=== PATIENT | male | born 1935 | race Caucasian/White ===

== ENCOUNTER 2019-10-09 07:06 | Outpatient (CLI) | payer MEDICARE, SELFPAY ==
[2019-10-09 07:18] LABS: Add Urine Microscopic? NO; Appearance Urine Clear (Clear); Bilirubin Urine Negative (Negative); Blood Urine Negative (Negative); Color Urine Yellow (Yellow); Glucose Urine UA Negative (Negative); Ketones Urine Negative (Negative); Leukocyte Esterase Ur Negative (Negative); Nitrate Urine Negative (Negative); Protein Urine Negative (Negative); Specific Grav Ur 1.015 (1.010-1.020); Urobilinogen Urine 0.2 mg/dL (0.2-1.0)
[2019-10-09 07:28] LABS: Hemoglobin A1C 5.8 % (<5.7)
[2019-10-09 08:35] LABS: Alanine Aminotransferase 21 U/L (16-63); Albumin Level 3.5 g/dL (3.4-5.0); Alkaline Phosphatase 70 U/L (46-116); Aspartate Amino Transferase 18 U/L (15-37); Bilirubin,Total 0.6 mg/dL (0.00-1.00); Blood Urea Nitrogen 11 mg/dL (7-18); Calcium 8.4 mg/dL (8.5-10.1); Carbon Dioxide 30 mmol/L (21-32); Chloride 96 mmol/L (98-108); Estimated Glomerular Filt Rate > 60; Glucose 94 mg/dL (70-99); HDL Direct 61 mg/dL (40-60); Osmolality Calculated 275 mOsm/kg (285-295); Sodium 133 mmol/L (136-145); Total Protein 6.4 g/dL (6.4-8.2); Triglycerides 34 mg/dL (0-150)
[2019-10-09 08:53] LABS: LDL Cholesterol Calculated 374 mg/dL (<130)
== END 2019-10-09 07:07 | disposition home or self-care (01) ==
LOC: CHSLAB 07:08
PROVIDERS: PCP Internal Medicine; Visit Provider Internal Medicine
DX: E78.2 Mixed hyperlipidemia (principal); I10 Essential (primary) hypertension; R73.01 Impaired fasting glucose
CPT/HCPCS: 36415; 80053; 80061; 81003; 83036

== ENCOUNTER 2020-04-15 06:58 | Outpatient (CLI) | payer MEDICARE, SELFPAY ==
[2020-04-15 07:26] LABS: Hemoglobin A1C 5.8 % (<5.7)
[2020-04-15 07:36] LABS: Add Urine Microscopic? NO; Appearance Urine Clear (Clear); Bilirubin Urine Negative (Negative); Blood Urine Negative (Negative); Color Urine Yellow (Yellow); Glucose Urine UA Negative (Negative); Ketones Urine Negative (Negative); Leukocyte Esterase Ur Negative (Negative); Nitrate Urine Negative (Negative); Protein Urine Negative (Negative); Urobilinogen Urine 0.2 mg/dL (0.2-1.0); pH Urine 7.5 (5.0-8.0)
[2020-04-15 09:33] LABS: Alanine Aminotransferase 17 U/L (16-63); Albumin Level 3.7 g/dL (3.4-5.0); Alkaline Phosphatase 84 U/L (46-116); Anion Gap 7 mmol/L (8-16); Aspartate Amino Transferase 13 U/L (15-37); Bilirubin,Total 0.6 mg/dL (0.00-1.00); Blood Urea Nitrogen 13 mg/dL (7-18); Calcium 8.9 mg/dL (8.5-10.1); Carbon Dioxide 29 mmol/L (21-32); Chloride 95 mmol/L (98-108); Estimated Glomerular Filt Rate > 60; Glucose 86 mg/dL (70-99); Osmolality Calculated 271 mOsm/kg (285-295); Potassium 4.4 mmol/L (3.5-5.1); Sodium 131 mmol/L (136-145)
== END 2020-04-15 06:59 ==
LOC: CHSLAB 07:00
PROVIDERS: PCP Internal Medicine; Visit Provider Internal Medicine
DX: R73.01 Impaired fasting glucose (principal); I10 Essential (primary) hypertension
CPT/HCPCS: 36415; 80053; 81003; 83036

== ENCOUNTER 2020-05-13 12:25 | Outpatient (CLI) | payer MEDICARE, OTHER, SELFPAY ==
--- NOTE | ~2020-05-13 | CT_ITS ---
EXAMINATION: CT sinus wo con DATE: 05/13/2020 12:47 INDICATION: Chronic maxillary sinusitis. TECHNIQUE: Computed tomography (CT) of the paranasal sinuses was performed without intravenous contra st. The dose-length product was 285.18 mGy-cm. Automated exposure control and iterative reconstructio n technique were employed. COMPARISON: None FINDINGS: Small right mastoid effusion. Left mastoid air cells are pneumatized. There is mild mucosal thickening of the maxillary sinuses. Ostiomeatal units are patent. No significant nasal septal devia tion. No air-fluid levels. No significant mucoperiosteal reaction. IMPRESSION: 1. Mild maxillary sinus disease. 2: Small right mastoid effusion. Reviewed, dictated and finalized at location A. CHECKER
== END 2020-05-13 12:26 | disposition home or self-care (01) ==
PROVIDERS: PCP Internal Medicine
DX: J32.0 Chronic maxillary sinusitis (principal)
CPT/HCPCS: 70486

== ENCOUNTER 2020-05-22 07:06 | Outpatient (CLI) | payer MEDICARE, SELFPAY ==
[2020-05-22 08:15] LABS: Alanine Aminotransferase 9 U/L (16-63); Albumin Level 3.6 g/dL (3.4-5.0); Alkaline Phosphatase 87 U/L (46-116); Anion Gap 5 mmol/L (8-16); Aspartate Amino Transferase 14 U/L (15-37); Bilirubin,Total 0.6 mg/dL (0.00-1.00); Blood Urea Nitrogen 12 mg/dL (7-18); Calcium 8.5 mg/dL (8.5-10.1); Carbon Dioxide 29 mmol/L (21-32); Chloride 96 mmol/L (98-108); Cholesterol 137 mg/dL (0-200); Creatine Kinase 71 U/L (39-308); Estimated Glomerular Filt Rate > 60; Glucose 96 mg/dL (70-99); HDL Direct 48 mg/dL (40-60); LDL Cholesterol Calculated 80 mg/dL (<130); Osmolality Calculated 269 mOsm/kg (285-295); Potassium 4.4 mmol/L (3.5-5.1); Sodium 130 mmol/L (136-145); Total Protein 6.8 g/dL (6.4-8.2); Triglycerides 47 mg/dL (0-150)
== END 2020-05-22 07:07 | disposition home or self-care (01) ==
LOC: CHSLAB 07:07
PROVIDERS: PCP Internal Medicine; Visit Provider Internal Medicine
DX: E78.2 Mixed hyperlipidemia (principal); E87.1 Hypo-osmolality and hyponatremia
CPT/HCPCS: 36415; 80053; 80061; 82550

== ENCOUNTER 2020-07-08 06:59 | Outpatient (CLI) | payer MEDICARE, SELFPAY ==
[2020-07-08 07:57] LABS: Anion Gap 4 mmol/L (8-16); Blood Urea Nitrogen 17 mg/dL (7-18); Calcium 8.7 mg/dL (8.5-10.1); Carbon Dioxide 31 mmol/L (21-32); Chloride 95 mmol/L (98-108); Estimated Glomerular Filt Rate > 60; Glucose 100 mg/dL (70-99); Osmolality Calculated 271 mOsm/kg (285-295); Potassium 4.3 mmol/L (3.5-5.1); Sodium 130 mmol/L (136-145)
== END 2020-07-08 07:00 | disposition home or self-care (01) ==
LOC: CHSLAB 07:00
PROVIDERS: PCP Internal Medicine; Visit Provider Internal Medicine
DX: E87.1 Hypo-osmolality and hyponatremia (principal)
CPT/HCPCS: 36415; 80048

== ENCOUNTER 2020-08-20 07:01 | Outpatient (CLI) | payer MEDICARE, SELFPAY ==
[2020-08-20 07:59] LABS: Anion Gap 6 mmol/L (8-16); Blood Urea Nitrogen 15 mg/dL (7-18); Calcium 8.8 mg/dL (8.5-10.1); Carbon Dioxide 30 mmol/L (21-32); Chloride 94 mmol/L (98-108); Estimated Glomerular Filt Rate > 60; Glucose 98 mg/dL (70-99); Osmolality Calculated 270 mOsm/kg (285-295); Potassium 4.7 mmol/L (3.5-5.1); Sodium 130 mmol/L (136-145)
== END 2020-08-20 07:02 | disposition home or self-care (01) ==
LOC: CHSLAB 07:02
PROVIDERS: PCP Internal Medicine; Visit Provider Internal Medicine
DX: E87.1 Hypo-osmolality and hyponatremia (principal)
CPT/HCPCS: 36415; 80048

== ENCOUNTER 2020-09-04 07:03 | Outpatient (CLI) | payer MEDICARE, SELFPAY ==
[2020-09-09 06:05] LABS: Adrenocorticotropic Hormone 24 pg/mL (6-50)
== END 2020-09-04 07:04 | disposition home or self-care (01) ==
LOC: CHSLAB 07:04
PROVIDERS: PCP Internal Medicine; Visit Provider Internal Medicine
DX: E87.1 Hypo-osmolality and hyponatremia (principal)
CPT/HCPCS: 36415; 82024; 82533

== ENCOUNTER 2020-10-08 08:44 | Outpatient (CLI) | payer MEDICARE, SELFPAY ==
[2020-10-08 09:10] LABS: Creatinine Urine 67.78 mg/dL (40-278); Sodium Urine Random 81 mmol/L (20-110)
[2020-10-08 10:07] LABS: Albumin Level 3.4 g/dL (3.4-5.0); Anion Gap 9 mmol/L (8-16); Blood Urea Nitrogen 16 mg/dL (7-18); Calcium 8.7 mg/dL (8.5-10.1); Carbon Dioxide 27 mmol/L (21-32); Chloride 94 mmol/L (98-108); Estimated Glomerular Filt Rate > 60; Glucose 113 mg/dL (70-99); Osmolality Calculated 272 mOsm/kg (285-295); Potassium 4.3 mmol/L (3.5-5.1); Sodium 130 mmol/L (136-145)
[2020-10-11 05:09] LABS: Albumin 3.6 g/dL (3.8-4.8); Alpha 1 Globulin 0.3 g/dL (0.2-0.3); Alpha 2 Globulin 0.6 g/dL (0.5-0.9); Beta 1 Globulin 0.4 g/dL (0.4-0.6); Protein, Total 6.2 g/dL (6.1-8.1)
[2020-10-11 05:34] LABS: Osmolality, Urine 530 mOsm/kg (50-1200)
== END 2020-10-08 08:45 | disposition home or self-care (01) ==
LOC: CHSLAB 08:45
PROVIDERS: PCP Internal Medicine; Visit Provider Internal Medicine Nephrology
DX: E85.1 Neuropathic heredofamilial amyloidosis (principal)
CPT/HCPCS: 36415; 80069; 82570; 83930; 83935; 84155; 84165; 84300

== ENCOUNTER 2020-12-08 09:23 | Outpatient (CLI) | payer MEDICARE, SELFPAY ==
[2020-12-08 09:47] LABS: Albumin Level 3.6 g/dL (3.4-5.0); Anion Gap 8 mmol/L (8-16); Blood Urea Nitrogen 17 mg/dL (7-18); Calcium 8.7 mg/dL (8.5-10.1); Carbon Dioxide 28 mmol/L (21-32); Chloride 97 mmol/L (98-108); Estimated Glomerular Filt Rate > 60; Glucose 95 mg/dL (70-99); Osmolality Calculated 277 mOsm/kg (285-295); Phosphorus 3.4 mg/dL (2.6-4.7); Potassium 4.4 mmol/L (3.5-5.1); Sodium 133 mmol/L (136-145)
== END 2020-12-08 09:24 | disposition home or self-care (01) ==
LOC: CHSLAB 09:24
PROVIDERS: PCP Internal Medicine; Visit Provider Internal Medicine Nephrology
DX: E85.1 Neuropathic heredofamilial amyloidosis (principal)
CPT/HCPCS: 36415; 80069

== ENCOUNTER 2021-01-04 07:15 | Outpatient (CLI) | payer MEDICARE, SELFPAY ==
[2021-01-04 07:30] LABS: Basophils Absolute Auto 0.05 K/mm3 (0.00-0.10); Basophils Percent Auto 0.7 % (0.0-1.0); Eosinophils Absolute Auto 0.23 K/mm3 (0.02-0.50); Eosinophils Percent Auto 3.4 % (1.0-6.0); Hematocrit 44.1 % (37.0-46.0); Hemoglobin 15.3 g/dL (12.4-15.3); Immature Granulocyte Absolute 0.02 K/mm3 (0.00-0.00); Immature Granulocyte Percent A 0.3 % (0.0-0.0); Lymphocytes Absolute Auto 1.34 K/mm3 (1.10-4.50); Lymphocytes Percent Auto 19.9 % (18.0-42.0); Mean Corpuscular HGB Conc 34.7 g/dL (32.0-36.0); Mean Corpuscular Hemoglobin 31.8 pg (27.0-31.0); Mean Corpuscular Volume 91.7 fL (78.0-102.0); Mean Platelet Volume 8.5 fl (8.7-11.0); Monocytes Absolute Auto 0.75 K/mm3 (0.10-0.90); Monocytes Percent Auto 11.1 % (2.0-11.0); Neutrophils Absolute Auto 4.4 K/mm3 (1.7-7.2); Neutrophils Percent Auto 64.6 % (50.0-70.0); Platelet Count Result 168 K/mm3 (150-420); Red Blood Count 4.81 M/mm3 (4.70-6.10); Red Cell Distribution Width 12.6 % (11.6-14.4); White Blood Count 6.8 K/mm3 (4.8-10.8)
[2021-01-04 07:31] LABS: Add Urine Microscopic? NO; Appearance Urine Clear (Clear); Bilirubin Urine Negative (Negative); Blood Urine Negative (Negative); Color Urine Light Yellow (Yellow); Glucose Urine UA Negative (Negative); Ketones Urine Negative (Negative); Leukocyte Esterase Ur Negative LEU/UL (Negative); Nitrate Urine Negative (Negative); Protein Urine Negative (Negative); Urobilinogen Urine 0.2 mg/dL (0.2-1.0); pH Urine 7.5 (5.0-8.0)
[2021-01-04 07:50] LABS: Hemoglobin A1C 5.4 % (<5.7)
[2021-01-04 07:56] LABS: MALB Creatinine Ratio 21.7 mg/g (0-30); Microalbumin Urine Random < 13.0 mg/L
[2021-01-04 08:20] LABS: Alanine Aminotransferase 25 U/L (16-63); Albumin Level 3.7 g/dL (3.4-5.0); Alkaline Phosphatase 89 U/L (46-116); Anion Gap 6 mmol/L (8-16); Aspartate Amino Transferase 14 U/L (15-37); Bilirubin,Total 0.5 mg/dL (0.00-1.00); Blood Urea Nitrogen 13 mg/dL (7-18); Calcium 8.9 mg/dL (8.5-10.1); Carbon Dioxide 30 mmol/L (21-32); Chloride 97 mmol/L (98-108); Cholesterol 141 mg/dL (0-200); Creatine Kinase 49 U/L (39-308); Estimated Glomerular Filt Rate > 60; Glucose 99 mg/dL (70-99); HDL Direct 52 mg/dL (40-60); LDL Cholesterol Calculated 79 mg/dL (<130); Osmolality Calculated 276 mOsm/kg (285-295); Potassium 4.3 mmol/L (3.5-5.1); Sodium 133 mmol/L (136-145); Total Protein 6.9 g/dL (6.4-8.2); Triglycerides 48 mg/dL (0-150)
== END 2021-01-04 07:16 | disposition home or self-care (01) ==
LOC: CHSLAB 07:16
PROVIDERS: PCP Internal Medicine; Visit Provider Internal Medicine
DX: R73.01 Impaired fasting glucose (principal); I10 Essential (primary) hypertension
CPT/HCPCS: 36415; 80053; 80061; 81003; 82043; 82550; 83036; 85025

== ENCOUNTER 2021-02-04 10:00 | Outpatient (CLI) | payer MEDICARE, SELFPAY ==
[2021-02-04 10:59] LABS: Albumin Level 3.6 g/dL (3.4-5.0); Anion Gap 8 mmol/L (8-16); Blood Urea Nitrogen 14 mg/dL (7-18); Calcium 8.8 mg/dL (8.5-10.1); Carbon Dioxide 29 mmol/L (21-32); Chloride 96 mmol/L (98-108); Estimated Glomerular Filt Rate > 60; Glucose 98 mg/dL (70-99); Osmolality Calculated 276 mOsm/kg (285-295); Phosphorus 3.2 mg/dL (2.6-4.7); Potassium 4.6 mmol/L (3.5-5.1); Sodium 133 mmol/L (136-145)
== END 2021-02-04 10:01 | disposition home or self-care (01) ==
LOC: CHSLAB 10:03
PROVIDERS: PCP Internal Medicine; Visit Provider Internal Medicine Nephrology
DX: E87.1 Hypo-osmolality and hyponatremia (principal)
CPT/HCPCS: 36415; 80069

== ENCOUNTER 2021-02-09 12:15 | Outpatient (CLI) | payer MEDICARE, OTHER, SELFPAY ==
--- NOTE | ~2021-02-09 | XR_ITS ---
XR chest 2V DATE: 02/09/2021 12:58 INDICATION: Hyponatremia, hypoosmolality. Hypertension. TECHNIQUE: 2 views COMPARISON: 04/17/2017 two-view chest FINDINGS: Normal heart size. Bilateral hyperinflation, suggesting obstructive airways disease. There are chronic reticulonodular c hanges in both lung bases. No interval pulmonary consolidation. No pleural effusion or pulmonary vascular congestion or pneumoth orax. Normal heart size. No hilar or mediastinal enlargement. Diffuse osteopenia. Diffuse idiopathic skeletal hyperostosis of the thoracic spine. IMPRESSION: Chronic reticulonodular changes at both lung bases, dating back to 04/17/2017 Bilateral hyperinflation, suggesting obstructive airways disease Reviewed, dictated and finalized at location A.
--- NOTE | ~2021-02-09 | CT_ITS ---
EXAMINATION: CT brain wo con DATE: 02/09/2021 12:58 INDICATION: Hyponatremia. Hypoxia small left knee. Hypertension. History of prostate cancer. TECHNIQUE: Computed tomography (CT) of the head was performed without intravenous contrast. The mA wa s adjusted according to patient size. Iterative reconstruction technique was employed. Exam dose: 60 5.33 mGy-cm total exam DLP. COMPARISON: None FINDINGS: Cerebral atherosclerosis is noted. There is nonspecific diminished attenuation of the cereb ral white matter, likely due to chronic small vessel ischemic changes. Mild bilateral basal ganglia calcification. No intracranial mass lesion or hemorrhage or cerebrovascular accident is evident. No midline shift or mass effect. No subdural or epidural hematoma. The orbital contents are unremarkable. Minimal opacification of right mastoid air cells. The mastoid air cells and included paranasal sinuse s are otherwise unremarkable. No fracture or bone destruction of the cranial vault. IMPRESSION: Cerebral atherosclerosis and chronic small vessel ischemic changes of cerebral white mat ter No acute intracranial finding Reviewed, dictated and finalized at Location A. Reviewed, dictated and finalized at location A. IMPRESSION: Cerebral atherosclerosis and chronic small vessel ischemic changes of cerebral white matter No acute intracranial finding
== END 2021-02-09 12:16 | disposition home or self-care (01) ==
LOC: CHSIMG 12:18
PROVIDERS: PCP Internal Medicine; Visit Provider Internal Medicine Nephrology
DX: E87.1 Hypo-osmolality and hyponatremia (principal)
CPT/HCPCS: 70450; 71046

== ENCOUNTER 2021-04-16 19:05 | Emergency (ER) | payer MEDICARE, OTHER, SELFPAY ==
--- NOTE | ~2021-04-16 | CT_ITS ---
EXAMINATION: CT brain wo con EXAM DATE: 04/16/2021 20:01 INDICATION: Left leg numbness LT leg numbness pins and needles w/ dizziness today . TECHNIQUE: Spiral CT of the head was performed without contrast. Axial, coronal and sagittal images were reviewed. The dose-length product (DLP) for this examination was 681.00 mGy-cm. The exposure w as tailored according to patient size, and iterative reconstruction (ASIR) was used as additional dos e reduction technique. Comparison is made to prior examination from 02/09/2021. FINDINGS: There is no acute intraparenchymal hemorrhage. No evidence of intraparenchymal brain mass lesion. No evidence of acute infarction. Please note that initial head CT has limited sensitivity f or small or acute infarctions. There is mild periventricular and subcortical hypodensity, nonspecific but probably related to small vessel ischemic disease. There is mild prominence of the sulci and v entricles related to cerebral atrophy. There is intracranial carotid arteriosclerosis. There are n o extra-axial collections. There is no mass effect or midline shift. Patient has had right-sided oc ular lens surgery. Soft tissue is unremarkable. The visualized sinuses and mastoid air cells are we ll aerated. IMPRESSION: 1. No acute intracranial findings. 2. Chronic age related findings. Reviewed, dictated and finalized at location A. ITAL LIBRARIAN
[2021-04-16 19:10] VITALS: BP 166/94; PULSE 93; RESP 18; TEMP 36.6; O2SAT 99
--- NOTE | 2021-04-16 19:13 | ED.NEUROSD ---
HPI - Neuro Symptoms/Deficit General Chief Complaint: Extremity Problem,Nontraumatic Stated Complaint: numb L leg Source: patient and RN notes reviewed Mode of arrival: wheelchair Limitations: no limitations History of Present Illness HPI Narrative: patient states that he when out to get a pizza brought her home sat down and ate supper. He got up after eating and could not stand on his left leg. He said it felt numb. No other neurological symptoms. Onset (ago): hour(s) (1) Timing confirmed by: family member Location: left leg History of same: No Severity: moderate Quality: numb Relieving factors: time Exacerbating factors: none Context: sudden onset On Anticoagulants: No Associated symptoms: denies other symptoms Treatments Prior to Arrival: none Related Data Home Medications Medication Instructions Recorded Confirmed losartan 50 mg PO DAILY 04/16/21 04/16/21 omeprazole 20 mg PO DAILY 04/16/21 04/16/21 Allergies Allergy/AdvReac Type Severity Reaction Status Date / Time adhesive Allergy Unknown Rash Verified 04/16/21 19:25 BEE STINGS Allergy Severe SWELLING, Uncoded 05/31/16 14:47 SOB Review of Systems Review of Systems: All systems reviewed & are unremarkable except as noted in HPI and below Constitutional: Constitutional: Denies chills and Denies fever(s) Neurologic: Reports system reviewed and no additional complaints, except as documented PMFSH Past Medical History Medical History (Updated 04/16/21 @ 21:02 by Tre Bruner MD) GERD (gastroesophageal reflux disease) Hypertension Sessile colonic polyp Surgical History Surgical History (Updated 04/16/21 @ 19:40 by Tre Bruner MD) History of hip surgery Right History of knee replacement left Previous back surgery Times 2 Social History Social History Smoking status: Never smoker Alcohol intake: never Exam Const: General: healthy appearing, no acute distress and alert Nutritional Appearance: well nourished Orientation/consciousness: patient oriented x3 HENMT: Head: normal to inspection Ears: external ears normal Face and sinus: normal facial exam Mouth: Yes moist mucous membranes Eyes: Conjunctivae: conjunctivae normal Pupils: Equal, round and reactive pupils present EOM: EOMs intact bilaterally Neck: Neck: normal visual inspection and no lymphadenopathy Carotids: no bruits Resp: Effort & Inspection: normal respiratory effort Auscultation: clear to auscultation bilaterally Cardio: Rate: regular rate Rhythm: regular rhythm GI: GI Palp: Yes Soft to palpation, No Tenderness to palpation present (GI), No Guarding due to palpation present (GI) and No Rebound tenderness present Auscultation: normal bowel sounds Back/Spine/Pelvis: Cervical Spine: cervical ROM normal Thoracic/Lumbar Spine: thoraco-lumbar ROM normal Skin: General skin exam: normal color Rashes: no rashes Neuro: General: patient oriented x3 and moves all extremities Cranial nerves: Yes CN's II-XII intact bilaterally, Yes Equal, round and reactive pupils present, Yes Bilaterally intact EOM present, Yes Normal facial strength present, Yes facial symmetry, Yes Midline tongue present, Yes Normal hearing present, Yes Ability to bilaterally rotate head present and Yes Ability to bilaterally elevate shoulders present Cognition (Neuro): normal cognition Speech: normal speech Motor exam (neuro): 5/5 motor strength present throughout, Pronator motor function not present, No tremor noted, Normal motor muscle tone present throughout and Motor abnormalities not present Sensory Exam: normal sensation Deep tendon reflexes (DTR's): Right patellar reflex intensity grade: 2+, Left patellar reflex intensity grade: 2+, Right ankle reflex intensity grade: 2+ and Left ankle reflex intensity grade: 2+ Coordination: [id number] test normal, [id number] test normal and Romberg test negative Pupils: Normal pupillary re
--- NOTE | 2021-04-16 19:38 | ECG_ITS ---
Measurements Intervals [place] Rate: 75 P: 22 NE: 252 QRS: -6 QRSD: 107 T: 9 QT: 386 QTc: 432 Interpretive Statements SINUS RHYTHM WITH FIRST DEGREE AV BLOCK INCOMPLETE RIGHT BUNDLE BRANCH BLOCK LOW QRS VOLTAGE IN PRECORDIAL LEADS ABNORMAL ECG Electronically Signed On 04-17-2021 8:01:46 EXECUTIVE MANAGER by Jett Kent D.O.
[2021-04-16 20:14] LABS: Basophils Absolute Auto 0.05 K/mm3 (0.00-0.10); Basophils Percent Auto 0.8 % (0.0-1.0); Eosinophils Absolute Auto 0.26 K/mm3 (0.02-0.50); Eosinophils Percent Auto 4.2 % (1.0-6.0); Hematocrit 41.2 % (37.0-46.0); Hemoglobin 14.5 g/dL (12.4-15.3); Immature Granulocyte Absolute 0.01 K/mm3 (0.00-0.00); Immature Granulocyte Percent A 0.2 % (0.0-0.0); Lymphocytes Percent Auto 25.9 % (18.0-42.0); Mean Corpuscular HGB Conc 35.2 g/dL (32.0-36.0); Mean Corpuscular Hemoglobin 32.5 pg (27.0-31.0); Mean Corpuscular Volume 92.4 fL (78.0-102.0); Mean Platelet Volume 8.6 fl (8.7-11.0); Monocytes Absolute Auto 0.74 K/mm3 (0.10-0.90); Neutrophils Absolute Auto 3.5 K/mm3 (1.7-7.2); Neutrophils Percent Auto 56.9 % (50.0-70.0); Platelet Count Result 158 K/mm3 (150-420); Red Blood Count 4.46 M/mm3 (4.70-6.10); Red Cell Distribution Width 12.4 % (11.6-14.4); White Blood Count 6.2 K/mm3 (4.8-10.8)
[2021-04-16 20:24] LABS: Prothrombin Time 11.1 Seconds (9.50-12.10)
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
[2021-04-16 20:37] LABS: Alanine Aminotransferase 20 U/L (16-63); Albumin Level 3.3 g/dL (3.4-5.0); Alkaline Phosphatase 91 U/L (46-116); Anion Gap 5 mmol/L (8-16); Aspartate Amino Transferase 19 U/L (15-37); Bilirubin,Total 0.4 mg/dL (0.00-1.00); Blood Urea Nitrogen 14 mg/dL (7-18); Carbon Dioxide 30 mmol/L (21-32); Chloride 96 mmol/L (98-108); Estimated CRCL calculation 68 ml/min; Estimated Glomerular Filt Rate > 60; Glucose 99 mg/dL (70-99); Osmolality Calculated 272 mOsm/kg (285-295); Potassium 3.8 mmol/L (3.5-5.1); Sodium 131 mmol/L (136-145); Total Protein 6.7 g/dL (6.4-8.2)
[2021-04-16 20:38] LABS: Magnesium 1.8 mg/dL (1.8-2.4); Thyroid Stimulating Hormone 1.58 uIU/mL (0.36-3.74)
[2021-04-16 21:01] VITALS: BP 149/86; PULSE 80; RESP 16; O2SAT 97
[2021-04-16 21:15] VITALS: TEMP 36.6
== END 2021-04-16 21:20 | disposition home or self-care (01) ==
PROVIDERS: Emergency Provider Emergency Medicine; PCP Internal Medicine
DX: R20.2 Paresthesia of skin (principal); K21.9 Gastro-esophageal reflux disease without esophagitis; I10 Essential (primary) hypertension; Z96.652 Presence of left artificial knee joint
CPT/HCPCS: 36415; 70450; 80053; 83735; 84443; 85025; 85610; 93005; 99283; 99284

== ENCOUNTER 2021-04-20 06:54 | Outpatient (CLI) | payer MEDICARE, OTHER, SELFPAY ==
--- NOTE | ~2021-04-20 | MR_ITS ---
EXAMINATION: MR brain/brain stem wo con DATE: 04/20/2021 08:08 INDICATION: Left leg weakness. Cerebral vascular accident. TECHNIQUE: Magnetic resonance imaging (MRI) of the brain and brainstem was performed without intraven ous contrast. Sequences included sagittal and axial T1-weighted FSE, axial diffusion-weighted FS EPI, axial T2*-weighted GRE, axial T2-weighted FLAIR Propeller, and axial T2-weighted Propeller. Apparent diffusion coefficient (ADC) maps were created. COMPARISON: Head CT 04/16/2021 FINDINGS: There are acute infarcts in the deep white matter in right frontoparietal region. There are scattered areas of nonspecific increased T2-weighted signal intensity in the cerebral white matter. There is no intracranial hemorrhage or abnormal mass lesion. The ventricles are normal in size. There are likely changes of right ocular lens replacement surgery. There is mild mucosal thickening in the ethmoid sinuses. There is a right mastoid effusion. IMPRESSION: 1. 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 2. Moderate nonspecific cerebral white matter disease, which likely represents chronic small vessel i schemic disease. Reviewed, dictated and finalized at location A. ER DRIVER IMPRESSION: 1. 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 2. Moderate nonspecific cerebral white matter disease, which likely represents chronic small vessel ischemic disease.
--- NOTE | 2021-05-21 12:21 | WPDHOLTEREM ---
Holter/Event Monitor Holter/Event Monitor Date of procedure: 04/20/21 Holter/Event Procedure: Event Monitor Indications: TIA Conclusion: 1. 27 days event monitor between 04/20/21-05/19/21. There are 41 available transmissions for analysis. 2. Predominant rhythm is sinus rhythm. HR range 50-172 bpm; average HR 72 bpm. 3. There are occasional premature supraventricular complexes with total burden of <1%. No supraventricular tachycardia. 4. There are occasional premature ventricular complexes with total burden of <1%. There are 2 episodes of ventricular tachycardia. One was up to 172 bpm on 04/24/21 at 02:51 lasting 56 seconds. The other was up to 172 bpm on 04/27/21 at 17:41 lasting 21 beats. 5. There is first degree AV block. One pause was 2.3 seconds long at 23:41. 6. Patient had one symptom other than listed which demonstrate sinus rhythm at 83 bpm.
== END 2021-04-20 06:55 | disposition home or self-care (01) ==
LOC: CHSIMG 06:55
PROVIDERS: PCP Internal Medicine; Visit Provider Internal Medicine
DX: R53.1 Weakness (principal); I63.9 Cerebral infarction, unspecified; R94.31 Abnormal electrocardiogram [ECG] [EKG]
CPT/HCPCS: 70551; 93270

== ENCOUNTER 2021-04-23 12:19 | Outpatient (CLI) | payer MEDICARE, OTHER, SELFPAY ==
--- NOTE | ~2021-04-23 | US_ITS ---
EXAMINATION: US carotid duplex BI DATE: 04/23/2021 13:21 INDICATION: Left hemiparesis. TECHNIQUE: Grayscale, color Doppler, and pulsed Doppler images of the cervical carotid arteries were obtained. The degree of vessel stenosis is placed in one of the following categories: normal, <50%, 5 0-69%, >=70% but less than near-occlusion, near-occlusion, or total occlusion. Note that percent sten osis relative to normal distal artery lumen diameter is indirectly measured from velocity measurement s as described by Lg, et al. Radiology 2003; 229:340-346. COMPARISON: Ultrasound 04/04/2018 FINDINGS: RIGHT: The right common carotid artery (CCA) peak systolic velocity (PSV) is 65 cm/s. The right internal car otid artery (ICA) PSV is 207 cm/s. The right ICA end-diastolic velocity (EDV) is 46 cm/s. The right I CA/CCA PSV ratio is 3.2. Grayscale and color Doppler images yield an estimate of >=50% diameter reduc tion from plaque in the ICA. There is antegrade flow in the right vertebral artery. LEFT: The left CCA PSV is 63 cm/s. The left ICA PSV is 49 cm/s. The left ICA EDV is 16 cm/s. The left ICA/C CA PSV ratio is 0.8. Grayscale and color Doppler images yield an estimate of <50% diameter reduction from plaque in the ICA. There is antegrade flow in the left vertebral artery. IMPRESSION: 1. 50-69% stenosis in the right internal carotid artery. 2. <50% stenosis in the left internal carotid artery. Reviewed, dictated and finalized at location A. INERY MOVER
--- NOTE | 2021-04-23 12:26 | ECHO_ITS ---
Patient Info Name: Yaw Polanco Age: 85 years : 1935 Gender: Male Ht: 72 in Wt: 230 lbs BSA: 2.33 m2 HR: 87 bpm BP: 117 / 65 mmHg Exam Date: 04/23/2021 1:16 PM Exam Location: [facility] Patient Status: Outpatient Admit Date: 04/23/2021 Staff Ordering Physician: Edith Xie MD Senior Pl Sql Developer: Seda Poe Attending Provider: Edith Xie MD Referring Physician: Rojas DONAHUE; Exam Type: CA echo doppler color flow Study Info Indications Z86.73 - Personal history of transient ischemic attack (TIA), and cerebral infarction without residual deficits Complete two-dimensional, color flow and Doppler transthoracic echocardiogram is performed. Strain analysis performed. Summary 1. Complete two-dimensional, color flow and Doppler transthoracic echocardiogram is performed. 2. Left ventricular chamber dimension is normal. 3. Left ventricular systolic function is normal, estimated at 55-60%. 4. There is moderately increased left ventricular wall thickness. 5. The left ventricular diastolic function is grade I diastolic dysfunction. 6. Global longitudinal strain is normal at -17.0%. 7. There is moderate aortic valve sclerosis. 8. There is mild aortic valve stenosis with a peak velocity of 196 cm/s, mean gradient of 10 mmHg, and aortic valve area of 1.6 cm2. 9. The mitral valve has mildly calcified annulus. 10. No pulmonary hypertension, estimated pulmonary arterial systolic pressure is 20 mmHg. 11. There is trace pulmonic regurgitation. Left Ventricle Global longitudinal strain is normal at -17.0%. Tissue doppler is not performed. Left ventricular chamber dimension is normal. Left ventricular systolic function is normal, estimated at 55-60%. There is moderately increased left ventricular wall thickness. The left ventricular diastolic function is grade I diastolic dysfunction. Right Ventricle Right ventricular systolic function is normal and with normal TAPSE 2.1 cm. Right ventricular chamber dimension is normal. Left Atria Left atrial chamber dimension is normal. Right Atria Right atrial chamber dimension is normal. Aortic Valve The aortic valve is trileaflet. There is moderate aortic valve sclerosis. There is mild aortic valve stenosis with a peak velocity of 196 cm/s, mean gradient of 10 mmHg, and aortic valve area of 1.6 cm2. There is no aortic valve regurgitation. Pulmonic Valve There is trace pulmonic regurgitation. Mitral Valve The mitral valve has mildly calcified annulus. There is no mitral valve stenosis. There is no mitral valve regurgitation. Tricuspid Valve There is no tricuspid valve regurgitation. No pulmonary hypertension, estimated pulmonary arterial systolic pressure is 20 mmHg. Pericardium/Pleural There is no pericardial effusion. Inferior Vena Cava Normal inferior vena cava with >50% collapse upon inspiration consistent with normal right atrial pressure, 5 mmHg. Aorta The aortic root size at the sinus of Valsalva is normal. Left Ventricular Outflow Tract Name Value Normal LVOT 2D LVOT Diameter 2.0 cm LVOT Doppler LVOT Peak Velocity 93
== END 2021-04-23 12:20 | disposition home or self-care (01) ==
LOC: CHSIMG 12:20
PROVIDERS: PCP Internal Medicine; Visit Provider Internal Medicine
DX: R53.1 Weakness (principal); I63.9 Cerebral infarction, unspecified
CPT/HCPCS: 93306; 93880

== ENCOUNTER 2021-06-04 00:49 | Emergency (ER) | payer MEDICARE, OTHER, SELFPAY ==
--- NOTE | ~2021-06-04 | XR_ITS ---
EXAMINATION: XR chest 1V portable EXAM DATE: 06/04/2021 01:32 INDICATION: Dizziness. TECHNIQUE: Portable AP frontal chest x-ray was obtained. Comparison is made to prior examination from 02/09/2021. FINDINGS: Chronic basilar reticulonodular opacities unchanged. No confluent consolidation, pneumothor ax or pleural effusion suspected. Cardiomediastinal silhouette is normal. There are mild bony degene rative changes. IMPRESSION: No acute cardiopulmonary findings. Reviewed, dictated and finalized at location A. ALT PAVER
[2021-06-04 00:52] VITALS: BP 177/94; PULSE 92; RESP 16; TEMP 36.6; O2SAT 99
--- NOTE | 2021-06-04 01:03 | PC.NURSE ---
ORTHOSTATIC VITALS FOLLOWS- LAYING 161/80 80, SITTING 153/81 81, SITTING WITH LEGS HANGING OFF BED 168/99 102, ERP NOTIFIED.
--- NOTE | 2021-06-04 01:08 | ECG_ITS ---
Measurements Intervals [place] Rate: 80 P: 35 NE: 235 QRS: -20 QRSD: 107 T: 22 QT: 370 QTc: 427 Interpretive Statements SINUS RHYTHM WITH FIRST DEGREE AV BLOCK INCOMPLETE RIGHT BUNDLE BRANCH BLOCK DELAYED PRECORDIAL R/S TRANSITION LOW QRS VOLTAGE IN PRECORDIAL LEADS ABNORMAL ECG Electronically Signed On 06-04-2021 6:17:50 TITLE CHECKER by Jett Kent D.O.
[2021-06-04 01:34] LABS: Basophils Absolute Auto 0.05 K/mm3 (0.00-0.10); Basophils Percent Auto 0.6 % (0.0-1.0); Eosinophils Absolute Auto 0.31 K/mm3 (0.02-0.50); Eosinophils Percent Auto 3.8 % (1.0-6.0); Hematocrit 41.4 % (37.0-46.0); Hemoglobin 14.7 g/dL (12.4-15.3); Immature Granulocyte Absolute 0.03 K/mm3 (0.00-0.00); Immature Granulocyte Percent A 0.4 % (0.0-0.0); Lymphocytes Absolute Auto 1.54 K/mm3 (1.10-4.50); Mean Corpuscular HGB Conc 35.5 g/dL (32.0-36.0); Mean Corpuscular Hemoglobin 32.2 pg (27.0-31.0); Mean Corpuscular Volume 90.8 fL (78.0-102.0); Mean Platelet Volume 8.7 fl (8.7-11.0); Monocytes Absolute Auto 0.89 K/mm3 (0.10-0.90); Neutrophils Absolute Auto 5.3 K/mm3 (1.7-7.2); Neutrophils Percent Auto 65.2 % (50.0-70.0); Platelet Count Result 184 K/mm3 (150-420); Red Blood Count 4.56 M/mm3 (4.70-6.10); Red Cell Distribution Width 12.4 % (11.6-14.4); White Blood Count 8.1 K/mm3 (4.8-10.8)
[2021-06-04 01:56] LABS: Alanine Aminotransferase 20 U/L (16-63); Albumin Level 3.3 g/dL (3.4-5.0); Alkaline Phosphatase 93 U/L (46-116); Anion Gap 8 mmol/L (8-16); Aspartate Amino Transferase 16 U/L (15-37); Bilirubin,Total 0.6 mg/dL (0.00-1.00); Blood Urea Nitrogen 14 mg/dL (7-18); Calcium 8.8 mg/dL (8.5-10.1); Carbon Dioxide 27 mmol/L (21-32); Chloride 94 mmol/L (98-108); Estimated CRCL calculation 82 ml/min; Estimated Glomerular Filt Rate > 60; Glucose 107 mg/dL (70-99); NT Pro B Type Natriuretic Pept 95 pg/mL (0-450); Osmolality Calculated 268 mOsm/kg (285-295); Potassium 3.7 mmol/L (3.5-5.1); Sodium 129 mmol/L (136-145); Total Protein 6.9 g/dL (6.4-8.2)
--- NOTE | 2021-06-04 02:29 | ED.DIZZY ---
HPI - Dizziness General Chief Complaint: Dizziness Stated Complaint: Dizziness Time Seen by Provider: 06/04/21 01:32 Source: patient and family Mode of arrival: ambulatory Limitations: no limitations History of Present Illness HPI Narrative: this is an 85-year-old gentleman with history of abnormal rhythm has a history of mild aortic stenosis hypertension, patient presents with dizziness that occurred earlier this morning. Currently the patient is resting comfortably with no chest pain no shortness of breath no fever chills no nausea vomiting no abdominal pain no dysuria no diarrhea or constipation. Patient feels dizzy when he stands, blood pressure mildly elevated 177/94, denies vertigo MD elicited complaint: dizziness Onset (ago): hour(s) Timing: sudden onset Severity: mild Description: sense of movement Context: change in medication History of similar symptoms: Yes Exacerbating factors: nothing Relieving factors: nothing Associated symptoms: denies other symptoms Related Data Home Medications Medication Instructions Recorded Confirmed losartan 50 mg PO DAILY 04/16/21 06/04/21 omeprazole 20 mg PO DAILY 04/16/21 06/04/21 apixaban [Eliquis] 5 mg PO DAILY 06/04/21 06/04/21 atorvastatin 40 mg PO DAILY 06/04/21 06/04/21 metoprolol succinate 50 mg PO DAILY 06/04/21 06/04/21 Allergies Allergy/AdvReac Type Severity Reaction Status Date / Time adhesive Allergy Unknown Rash Verified 06/04/21 00:59 DEMAR Inhibitors Allergy Unknown Verified 06/04/21 00:59 BEE STINGS Allergy Severe SWELLING, Uncoded 06/04/21 00:59 SOB Review of Systems Review of Systems: All systems reviewed & are unremarkable except as noted in HPI and below PMFSH Past Medical History Medical History GERD (gastroesophageal reflux disease) Hypertension Sessile colonic polyp Surgical History Surgical History History of hip surgery Right History of knee replacement left Previous back surgery Times 2 Social History Social History Smoking status: Never smoker Alcohol intake: never Exam Const: General: no acute distress Orientation/consciousness: patient oriented x3 HENMT: Head: normal to inspection Eyes: Conjunctivae: conjunctivae normal Pupils: Equal, round and reactive pupils present Neck: Neck: normal visual inspection, no lymphadenopathy and no meningeal signs Chest: Chest palpation & inspection: normal inspection of the chest Resp: Effort & Inspection: normal respiratory effort Auscultation: clear to auscultation bilaterally Cardio: Rate: regular rate Rhythm: regular rhythm GI: Auscultation: normal bowel sounds : Testes: Testes normal Urinary Catheter: Urinary Catheter: patent and draining Back/Spine/Pelvis: Back: no CVA tenderness Skin: General skin exam: normal color Rashes: no rashes Neuro: General: patient oriented x3, moves all extremities, no meningeal signs and no focal motor deficits Extrem: General: normal to inspection and no pedal edema Psych: Mental Status: mental status grossly normal Affect: normal affect Course Course Emergency Course: blood pressure has improved to 153 over 80s, orthostatics were performed and patient is not orthostatic, blood work was reviewed with patient along with the EKG patient did have a sodium of 129 and 0.5L of fluids was given to patient prior to discharge. Vital Signs Vital signs: Vital Signs Temperature 36.6 C 06/04/21 00:52 Pulse Rate 92 06/04/21 00:52 Respiratory Rate 16 06/04/21 00:52 Blood Pressure 177/94 H 06/04/21 00:52 Pulse Oximetry 99 06/04/21 00:52 Temperature 36.6 C 06/04/21 00:52 Pulse Rate 92 06/04/21 00:52 Respiratory Rate 16 06/04/21 00:52 Blood Pressure 177/94 H 06/04/21 00:52 Pulse Oximetry 99 06/04/21 00:52 [facility] - Dizziness Lab
[2021-06-04] MEDS: SODIUM CHLORIDE 0.9% IV 500 ML 999 ML IV CONT (02:35)
[2021-06-04 03:08] VITALS: BP 128/64; PULSE 73; RESP 16; TEMP 36.6; O2SAT 97
== END 2021-06-04 03:10 | disposition home or self-care (01) ==
PROVIDERS: Emergency Provider Emergency Medicine; PCP Internal Medicine
DX: R42 Dizziness and giddiness (principal); K21.9 Gastro-esophageal reflux disease without esophagitis; I10 Essential (primary) hypertension
CPT/HCPCS: 36415; 71045; 80053; 83880; 84484; 85025; 93005; 99283; 99284; J7040

== ENCOUNTER 2021-06-08 01:17 | Day surgery (SDC) | payer MEDICARE, OTHER, SELFPAY ==
[2021-06-07 16:15] VITALS: BMI 30.4
[2021-06-08] VITALS (10 sets, daily range): BP systolic 122–164; BP diastolic 70–99; PULSE 58–83; RESP 13–18; TEMP 36.3–36.8; O2SAT 98–99; BMI 29.9
[2021-06-08 07:44] LABS: Basophils Absolute Auto 0.1 K/mm3 (0.0-0.1); Basophils Percent Auto 0.6 % (0.2-1.2); Eosinophils Absolute Auto 0.2 K/mm3 (0-0.3); Hemoglobin 15.4 g/dL (14.0-18.0); Immature Granulocyte Absolute 0.03 K/mm3 (0.00-0.031); Immature Granulocyte Percent A 0.4 % (0-0.5); Lymphocytes Absolute Auto 1.02 K/mm3 (0.9-3.2); Lymphocytes Percent Auto 12.2 % (18.3-44.2); Mean Corpuscular Hemoglobin 32.4 pg (26-34); Mean Corpuscular Volume 92.6 fl (80-100); Mean Platelet Volume 8.7 fl (7.4-10.4); Monocytes Absolute Auto 0.8 K/mm3 (0.1-0.6); Monocytes Percent Auto 9.5 % (2.6-8.5); Neutrophils Absolute Auto 6.3 K/mm3 (1.3-6.7); Neutrophils Percent Auto 75.3 % (45.5-73.1); Platelet Count Result 178 k/mm3 (150-375); Red Blood Count 4.75 M/mm3 (4.6-6.20); Red Cell Distribution Width 12.6 % (11.5-14.5); White Blood Count 8.4 K/mm3 (4.5-10.0)
[2021-06-08 07:53] LABS: Anion Gap 7 mmol/L (8-16); Blood Urea Nitrogen 12 mg/dL (9-20); Calcium 9.6 mg/dL (8.4-10.2); Carbon Dioxide 26 mmol/L (22-30); Chloride 95 mmol/L (98-107); Estimated CRCL calculation 75 ml/min; Estimated Glomerular Filt Rate > 60; Glucose 114 mg/dL (65-110); Potassium 3.9 mmol/L (3.4-5.0); Sodium 128 mmol/L (137-145)
--- NOTE | 2021-06-08 08:48 | WPDHPUPDATE1 ---
History and Physical Update Update Date/Time: 06/08/21 08:48 History and Physical has been reviewed, including an updated exam of the patient. Patient with recent stroke, nonsustained V-tach up to 56 seconds, some brief dizzy spells, hypertension. Lexiscan showed areas of ischemia. Normal LV function. Here for cardiac catheterization. Risks, benefits, and alternatives have been discussed and questions answered. Patient agrees to proceed with procedure.
--- NOTE | 2021-06-08 08:49 | WPDMODSED ---
Moderate Sedation Note-Pt Data Patient Data Diagnosis: Ventricular tachycardia, easy fatigability, dizzy spells, abnormal stress test Present Complaint: Patient to had a stroke 04/16/2021. Monitor did not show any AFib but he did have ventricular tachycardia with a 21 beat run and 52nd run. Admits to some brief dizzy spells which may last for split 2nd although these were asymptomatic. Lexiscan stress test showed: EF 56%, large area of moderate ischemia involving the apex, apical lateral, apical anterior, apical septal and mid septal segments, no infarction. Patient admits to some easy fatigability with exertion but leads a very sedentary life. Here for further evaluation. Procedure to be performed/Plan: Conscious sedation Left heart catheterization Possible PCI Allergies Allergy/AdvReac Type Severity Reaction Status Date / Time adhesive Allergy Unknown Rash Verified 06/08/21 08:15 DEMAR Inhibitors Allergy Unknown Verified 06/08/21 08:15 BEE STINGS Allergy Severe SWELLING, Uncoded 06/08/21 08:15 SOB Home Medications Medication Instructions Recorded Confirmed Type omeprazole 20 mg PO DAILY 04/16/21 06/07/21 History apixaban [Eliquis] 5 mg PO DAILY 06/04/21 06/08/21 History atorvastatin 40 mg PO DAILY 06/04/21 06/07/21 History metoprolol succinate 25 mg PO DAILY 06/04/21 06/08/21 History aspirin [Adult Low Dose Aspirin] 81 mg PO DAILY 06/07/21 06/08/21 History guaifenesin [Mucinex] 600 mg PO BID 06/07/21 06/08/21 History Current Medications: Active Medications Sodium Chloride (Normal Saline Iv) 500 mls @ 100 mls/hr IV CONT .Q5H JENNIFER Sedation/Anesthesia: No previous sedation/anesthesia problems (including family history). [facility] Past Medical History Medical History (Updated 06/08/21 @ 08:52 by Zhanna Augustine MD) Aortic stenosis 04/2021 echo: EF 77%, moderate , SRINIVASAN 1.5 cm2, mean grad 17 mmHg GERD (gastroesophageal reflux disease) History of stroke 04/16/2021 right frontal stroke, full recovery. Hypertension Sessile colonic polyp Surgical History Surgical History History of hip surgery Right History of knee replacement left Previous back surgery Times 2 Family History Family History (Updated 06/08/21 @ 08:54 by Zhanna Augustine MD) Mother Heart disease age 86 Cerebrovascular accident Father Malignant neoplasm of prostate Sibling Aortic valve replaced Malignant neoplasm of prostate Social History Social History (Updated 06/08/21 @ 08:54 by Zhanna Augustine MD) Social History: Smoking status: Never smoker Alcohol intake: former Substance use: never Substance use type: does not use Living arrangements: with family Spiritual care concerns: No Mod Sed Physical Exam Physical Exam Pre Procedural Exam: Normal: Appearance, Eyes, Ears, Nose, Neck, Throat, Airway, Lungs, Heart Size (1/6 HANNAH upper sternal border), Heart Rate, Heart Rhythm, Neuro Exam, Abdomen, Liver, Extremities (Intact femoral pulses with no bruits, intact pedal pulses) and Skin Hours since solid foods: 12 Hours since liquid intake: 12 Mallampati Classification: class III Internal Medicine - PN: Obj Da Vital Signs Vital Signs: Vital Signs - 24 hr 06/08/21 07:30 Temperature 98.2 F Pulse Rate 58 L Respiratory Rate 14 Blood Pressure 122/78 Pulse Oximetry 98 Meds/Results Medications: Active Medications Generic Name Dose Route Start Last Admin Trade Name Freq PRN Reason Stop Dose Admin Sodium Chloride 500 mls @ 100 mls/hr 06/08/21 07:35 Normal Saline Iv IV CONT .Q5H JENNIFER Labs CBC & Chem 7: 06/08/21 07:37 06/08/21 07:37 Labs: Laboratory Results - last 24 hr 06/08/21 06/08/21 07:37 07:37 WBC 8.4 RBC 4.75 Hgb 15.4 Hct 44.0 MCV 92.6 MCH 32.4 MCHC 35.0 RDW 12.6 Plt Count 178 MPV 8.7 Immature Gran % (Auto)
--- NOTE | 2021-06-08 09:57 | PM.OP ---
Procedure Note - Brief Procedure Note - Brief Date of procedure: 06/08/21 Pre-op diagnosis: abn stress test Post-op diagnosis: same Procedure performed: conscious sedation Left heart catheterization Description of procedure: uneventful left heart catheterization Anesthesia: local ( with conscious sedation) Surgeon: Zhanna Augustine MD Drains: No Packing: No Complications: No immediate complications Disposition: observation Findings: multivessel CAD Normal left ventricular function Mild aortic stenosis recommendation: Will discuss high cusp surgery with the patient.
--- NOTE | 2021-06-08 14:44 | SUR.PHASEII ---
Discharge instructions read to pt. Pt states understanding. Pt denies any questions. Restarting alfa 06/12/21 reviewed with pt and highlighted on paper.
--- NOTE | 2021-06-08 15:30 | SUR.PHASEII ---
DISCHARGED HOME, OUT VIA WC TO 'S WAITING CAR W/ ALL PERSONAL BELONGINGS AND DISCHARGE PACKET/DISK. NO NEW CHANGES. VOICES NO C/O. NO DISTRESS NOTED.
--- NOTE | 2021-06-08 16:59 | WPDCARDPROC ---
Cardiac Cath Procedure Note Date of procedure:: 06/08/21 Performing physician:: Zhanna Augustine MD Indication:: VEntricular tachycardia, abnormal stress test. Brief clinical history:: Patient to had a stroke 04/16/2021. Monitor did not show any AFib but he did have ventricular tachycardia with a 21 beat run and 52 second run. Pt admits to some brief dizzy spells which may last for split second although these runs of ventricular tachycardia were asymptomatic. Lexiscan stress test showed: EF 56%, large area of moderate ischemia involving the apex, apical lateral, apical anterior, apical septal and mid septal segments, no infarction. Echo showed normal left ventricular function with moderate aortic stenosis. Patient admits to some easy fatigability with exertion but leads a very sedentary life. Here for further evaluation. Procedure Procedure performed:: Procedure: 1. Conscious sedation 2. Left heart catheterization 3. Selective Coronary angiography 4. Left ventriculography Procedure note:: Site: Right femoral artery Catheters: 5 [place] arterial sheath, 5 [place] 4 cm right and left Tammy catheters, 5 [place] pigtail catheter Conscious sedation: The patient has no known prior history of adverse affects of conscious sedation. Oropharynx was clear. The patient is deemed a good candidate for conscious sedation. Conscious sedation began at: 913 a.m. Conscious sedation ended at: 939 a.m. Total conscious sedation time: 26 minutes Medications: Versed 1 mg, fentanyl 50 mcg IV push The patient had continuous hemodynamic monitoring, and was also continuously monitored by: Axel Leung RN The patient tolerated conscious sedation well. Detailed procedure: After informed consent the patient brought to the labor and delivery registered nurse and the right femoral area was prepped and draped in the usual fashion. After conscious sedation and local anesthesia the right femoral artery was punctured and cannulated with the arterial sheath. Selective Coronary angiography was performed with the coronary catheters in multiple projections. The patient had a short left main and we had to repeat some used to obtain good opacification of the circumflex after catheter manipulation. These were withdrawn. The pigtail catheter was advanced into the central circulation and left ventricle requiring a straight wire because of his aortic stenosis for pressure measurements and left ventriculography which was performed in the LOPEZ projection. This was withdrawn. Angiography the right common femoral artery was performed and showed these sheath was in suitable position for the vascular closure device. However, could not advance the Andioseal sheath due to bending, so I elected to withdrawal the sheath and obtained hemostasis was obtained using local pressure. The patient tolerated the procedure well with no complications. Estimated blood loss was negligible. Findings:: Pressures: Left ventricular pressure was 158/12 mmHg and aortic pressure was 140/60 mmHg, corresponding to a transvalvular gradient of 18 mm Hg. Left coronary artery: The proximal vessels as well as a valve were calcified. The left main was short. The proximal Left anterior descending had some mild diffuse narrowing before giving rise to a large diagonal. The mid Left anterior descending had a 90% stenosis 9 prior to a medium-sized diagonal than a long diffuse 95% stenosis. The diagonal had a 90% stenosis at its origin. The circumflex gave rise to a large 1st obtuse marginal which had a highly eccentric 60% stenosis. The mid circumflex had a 50% stenosis. Some [id number] collaterals were seen to the Left anterior descending. The distal Left anterior descending had what is probably a significant muscle bridge rather than a stenotic area. Right coronary artery: Tthe right coronary artery had some mild diffuse disease. The mid to distal posterior descending had a 60-70% stenosis. There was some collateral flow seen t
== END 2021-06-08 15:30 | disposition home or self-care (01) ==
PROVIDERS: PCP Internal Medicine; Visit Provider Internal Medicine Cardiovascular Disease
PROC: 4A023N7 Measurement of Cardiac Sampling and Pressure, Left Heart, Percutaneous Approach (ICD-10-PCS; CPT 93452; principal; 2021-06-08 08:30)
DX: I25.10 Atherosclerotic heart disease of native coronary artery without angina pectoris (principal); I35.0 Nonrheumatic aortic (valve) stenosis; R94.39 Abnormal result of other cardiovascular function study; I47.2 Ventricular tachycardia; I10 Essential (primary) hypertension; K21.9 Gastro-esophageal reflux disease without esophagitis; Z86.73 Personal history of transient ischemic attack (TIA), and cerebral infarction without residual deficits; Z79.01 Long term (current) use of anticoagulants; Z79.82 Long term (current) use of aspirin
CPT/HCPCS: 36415; 80048; 85025; 93458; C1760; C1769; C1887; C1894; G0269; J1644; J2250; J3010; J7040

== ENCOUNTER 2021-07-17 09:46 | Emergency (ER) | payer MEDICARE, OTHER, SELFPAY ==
[2021-07-17 09:50] VITALS: BP 126/80; PULSE 83; RESP 18; TEMP 36.6; O2SAT 94
--- NOTE | 2021-07-17 10:21 | ED.MALEGU ---
HPI - Male Genitourinary General Stated complaint: Catheter leaking Source: patient and family Mode of arrival: ambulatory Limitations: no limitations History of Present Illness HPI Narrative: this is 85-year-old gentleman with a recent surgery for carotid endarterectomy has a Joseph in place and overnight was having suprapubic distension and pressure, did realize that his Joseph catheter tubing was kinked, patient cut the tubing and presented to the ER otherwise there is no hematuria currently there is no suprapubic distention or pain no flank pain no fever chills no nausea vomiting no abdominal pain. Complaint: other ( Joseph catheter kinked) Onset (ago): day(s) Related Data Home Medications Medication Instructions Recorded Confirmed omeprazole 20 mg PO DAILY 04/16/21 06/07/21 Eliquis 5 mg PO DAILY 06/04/21 06/08/21 atorvastatin 40 mg PO DAILY 06/04/21 06/07/21 metoprolol succinate 25 mg PO DAILY 06/04/21 06/08/21 aspirin 81 mg PO DAILY 06/07/21 06/08/21 guaifenesin [Mucinex] 600 mg PO BID 06/07/21 06/08/21 Allergies Allergy/AdvReac Type Severity Reaction Status Date / Time adhesive Allergy Unknown Rash Verified 06/08/21 08:15 DEMAR Inhibitors Allergy Unknown Verified 06/08/21 08:15 BEE STINGS Allergy Severe SWELLING, Uncoded 06/08/21 08:15 SOB Review of Systems Review of Systems: All systems reviewed & are unremarkable except as noted in HPI and below PMFSH Past Medical History Medical History Aortic stenosis 04/2021 echo: EF 77%, moderate , SRINIVASAN 1.5 cm2, mean grad 17 mmHg GERD (gastroesophageal reflux disease) History of stroke 04/16/2021 right frontal stroke, full recovery. Hypertension Sessile colonic polyp Surgical History Surgical History History of hip surgery Right History of knee replacement left Previous back surgery Times 2 Family History Family History Mother Heart disease age 86 Cerebrovascular accident Father Malignant neoplasm of prostate Sibling Aortic valve replaced Malignant neoplasm of prostate Social History Social History Social History: Smoking status: Never smoker Alcohol intake: former Substance use: never Substance use type: does not use Spiritual care concerns: No Exam Const: General: cooperative, comfortable, no acute distress and well developed HENMT: Head: normal to inspection Face and sinus: normal facial exam Eyes: General: appearance normal, both eyes and all related structures Neck: Neck: normal visual inspection, full ROM, no lymphadenopathy and no meningeal signs Resp: Effort & Inspection: normal respiratory effort and able to speak in complete sentences Cardio: Palpation: normal PMI Rate: regular rate Rhythm: regular rhythm Heart sounds: Murmur heart sound present GI: Inspection: normal to inspection Percussion: Yes normal to percussion Auscultation: normal bowel sounds Urinary Catheter: Urinary Catheter: patent and draining Back/Spine/Pelvis: Back: no CVA tenderness Cervical Spine: normal cervical lordosis Skin: General skin exam: normal color and no rashes or lesions noted Neuro: General: oriented to person, oriented to place and oriented to time Extrem: General: normal to inspection, full ROM and capillary refill normal Psych: Appearance: grossly normal and well kempt Course Course Emergency Course: Joseph catheter replaced, UA performed and reviewed with patient and family Critical Care Time Critical Care Time Critical Care Time: No Discharge Plan Discharge Clinical Impression: Acute urinary obstruction UTI (urinary tract infection) Qualifiers: Urinary tract infection type: acute cystitis Hematuria presence: without hematuria Q
[2021-07-17 10:40] LABS: Add Urine Microscopic? YES; Appearance Urine Sl Cloudy (Clear); Bilirubin Urine 1+ (Negative); Blood Urine 3+ (Negative); Color Urine Yellow (Yellow); Glucose Urine UA Negative (Negative); Ketones Urine 1+ (Negative); Leukocyte Esterase Ur 2+ (Negative); Nitrate Urine Negative (Negative); Protein Urine 1+ (Negative); pH Urine 6.5 (5.0-8.0)
[2021-07-17 10:45] LABS: Bacteria Urine Trace /hpf; RBC Urine 21-50 /hpf (0-2); Squamous Epithelial Cell Urine Rare /hpf (Few)
[2021-07-17 11:01] VITALS: BP 126/80; PULSE 83; RESP 20; TEMP 36.6; O2SAT 94
== END 2021-07-17 11:05 | disposition home or self-care (01) ==
PROVIDERS: Emergency Provider Emergency Medicine; PCP Internal Medicine
DX: N13.9 Obstructive and reflux uropathy, unspecified (principal); N30.00 Acute cystitis without hematuria; K21.9 Gastro-esophageal reflux disease without esophagitis; I10 Essential (primary) hypertension
CPT/HCPCS: 81001; 99283

== ENCOUNTER 2021-07-22 17:47 | Emergency (ER) | payer MEDICARE, OTHER, SELFPAY ==
[2021-07-22] VITALS (7 sets, daily range): BP systolic 132–166; BP diastolic 60–81; PULSE 64–77; RESP 16–20; TEMP 36.6–36.7; O2SAT 97–100
--- NOTE | ~2021-07-22 | CT_ITS ---
EXAMINATION: CT abdomen pelvis w con DATE: 07/22/2021 20:09 INDICATION: Gross hematuria. Lower pelvic pain. TECHNIQUE: Computed tomography (CT) of the abdomen and pelvis was performed with 100 CC Omnipaque 350 intravenous contrast. Automated exposure control and iterative reconstruction technique were employe d. Exam dose: 867.86 mGy-cm total exam DLP. COMPARISON: 04/20/2018 CT abdomen pelvis and FINDINGS: There are innumerable peripheral small nodular densities of the lower lobes, chronic, prese nt on 04/20/2018. No consolidation at the lung bases. Normal heart size. No pericardial or pleural ef fusion. Small sliding hiatal hernia. Duodenal diverticulum. No hepatic, pancreatic, splenic, and adrenal or renal space-occupying mass lesion. No bile duct or pa ncreatic duct dilatation. The gallbladder is present. No renal mass lesion. 5.5 mm nonobstructing calculus of the lower pole of the right kidney. There is moderate right pelviectasis and ureterectasis no ureteral calculus is evident. There is diff use thickening of the wall of the urinary bladder. There is a Joseph catheter in the base of the urina ry bladder. Multiple radiopaque seeds are noted at the prostate bed. There is diverticulosis of the colon; no evidence of diverticulitis. No bowel obstruction or free ai r. Normal caliber of the abdominal aorta and iliac arteries with extensive atherosclerotic calcification . No intraperitoneal or retroperitoneal or pelvic mass lesion or adenopathy or ascites. Diffuse idiopathic skeletal hyperostosis of the thoracic spine. Severe degenerative disc disease thro ughout the lumbar and lumbosacral spine. Prominent degenerative change of the apophyseal joints Bilateral hip osteoarthritis. IMPRESSION: Small sliding hiatal hernia Duodenal diverticulum 5.5 mm nonobstructing lower pole renal calculus Moderate right pelviectasis and ureterectasis, without apparent obstructing calculus; further evaluat ion is recommended to exclude bladder mass obstructing the right ureterovesical junction. There is th ickening of the urinary bladder wall. Urologic consultation is recommended. Diverticulosis of the colon; no CT evidence of diverticulitis Reviewed, dictated and finalized at [facility]. Reviewed, dictated and finalized at [facility]. IMPRESSION: Small sliding hiatal hernia Duodenal diverticulum 5.5 mm nonobstructing lower pole renal calculus Moderate right pelviectasis and ureterectasis, without apparent obstructing rajendra culus; further evaluation is recommended to exclude bladder mass obstructing th e right ureterovesical junction. There is thickening of the urinary bladder wal l. Urologic consultation is recommended. Diverticulosis of the colon; no CT evidence of diverticulitis
--- NOTE | 2021-07-22 19:04 | ED.MALEGU ---
HPI - Male Genitourinary General Chief complaint: Urogenital-Male Stated complaint: unable to urinate Source: patient and family Mode of arrival: ambulatory Limitations: no limitations History of Present Illness HPI Narrative: This is an 85-year-old gentleman that presents with some hematuria was seen by Urology earlier today and had a procedure performed and was told that there would be some small amount of blood, but the patient has been passing large amount of blood and along with some blood clots patient has a history of coronary artery disease and had recent carotid endarterectomy is currently on aspirin and Plavix. The patient was seen in the emergency department about a week ago and had a Joseph placed and had a follow-up and Joseph was removed. The patient started having hematuria later this afternoon. The patient denies any abdominal pain there is no flank pain vitals are stable. Related Data Home Medications Medication Instructions Recorded Confirmed omeprazole 20 mg PO DAILY 04/16/21 07/17/21 atorvastatin 40 mg PO DAILY 06/04/21 07/17/21 metoprolol succinate 25 mg PO DAILY 06/04/21 07/17/21 aspirin 81 mg PO DAILY 06/07/21 07/17/21 guaifenesin [Mucinex] 600 mg PO BID 06/07/21 07/17/21 acetaminophen 500 mg PO Q6H PRN 07/17/21 07/17/21 clopidogrel 75 mg PO DAILY 07/17/21 07/17/21 diphenhydramine-acetaminophen 1 tablet PO DIRECTED PRN 07/17/21 07/17/21 [Tylenol PM Extra Strength] docusate sodium [Colace] 200 mg PO DAILY 07/17/21 07/17/21 epinephrine 0.3 mg SUBCUT PRN PRN 07/17/21 07/17/21 multivitamin [Daily Multivitamin] 1 tablet PO DAILY 07/17/21 07/17/21 sodium chloride 1,000 mg PO DAILY 07/17/21 07/17/21 Allergies Allergy/AdvReac Type Severity Reaction Status Date / Time adhesive Allergy Unknown Rash Verified 07/22/21 19:15 DEMAR Inhibitors Allergy Unknown Verified 07/22/21 19:15 BEE STINGS Allergy Severe SWELLING, Uncoded 07/22/21 19:15 SOB Review of Systems Review of Systems: All systems reviewed & are unremarkable except as noted in HPI and below PMFSH Past Medical History Medical History Aortic stenosis 04/2021 echo: EF 77%, moderate , SRINIVASAN 1.5 cm2, mean grad 17 mmHg GERD (gastroesophageal reflux disease) History of stroke 04/16/2021 right frontal stroke, full recovery. Hypertension Sessile colonic polyp Surgical History Surgical History History of hip surgery Right History of knee replacement left Previous back surgery Times 2 Family History Family History Mother Heart disease age 86 Cerebrovascular accident Father Malignant neoplasm of prostate Sibling Aortic valve replaced Malignant neoplasm of prostate Social History Social History Social History: Smoking status: Never smoker Alcohol intake: former Substance use: never Substance use type: does not use Spiritual care concerns: No Exam Const: General: no acute distress and alert HENMT: Head: normal to inspection Eyes: Conjunctivae: conjunctivae normal Pupils: Equal, round and reactive pupils present Neck: Neck: normal visual inspection, no lymphadenopathy and no meningeal signs Chest: Chest palpation & inspection: normal inspection of the chest Resp: Effort & Inspection: normal respiratory effort Auscultation: clear to auscultation bilaterally Cardio: Rate: regular rate Rhythm: regular rhythm GI: GI Palp: Yes Soft to palpation Percussion: Yes normal to percussion : Other: Hematuria Urinary Catheter: Urinary Catheter: urine red and urine with clots Back/Spine/Pelvis: Back: no CVA tenderness Skin: General skin exam: normal color Rashes: no rashes Neuro: General: patient oriented x3, moves all extremities and no m
[2021-07-22 19:17] LABS: Basophils Absolute Auto 0.04 K/mm3 (0.00-0.10); Basophils Percent Auto 0.6 % (0.0-1.0); Hematocrit 32.6 % (37.0-46.0); Hemoglobin 11.6 g/dL (12.4-15.3); Immature Granulocyte Absolute 0.03 K/mm3 (0.00-0.00); Immature Granulocyte Percent A 0.5 % (0.0-0.0); Lymphocytes Absolute Auto 0.79 K/mm3 (1.10-4.50); Mean Corpuscular HGB Conc 35.6 g/dL (32.0-36.0); Mean Corpuscular Volume 92.6 fL (78.0-102.0); Mean Platelet Volume 8.8 fl (8.7-11.0); Monocytes Absolute Auto 0.79 K/mm3 (0.10-0.90); Neutrophils Absolute Auto 4.7 K/mm3 (1.7-7.2); Neutrophils Percent Auto 71.9 % (50.0-70.0); Platelet Count Result 150 K/mm3 (150-420); Red Blood Count 3.52 M/mm3 (4.70-6.10); Red Cell Distribution Width 13.2 % (11.6-14.4); White Blood Count 6.6 K/mm3 (4.8-10.8)
--- NOTE | 2021-07-22 19:22 | PC.NURSE ---
1819 16fr martinez inserted and had to be flushed with 1000ml sterile water to get out blood clots urine pink at this time martinez left in to drain by gravity unine pink at this time doctor notified
[2021-07-22 19:33] LABS: Alanine Aminotransferase 24 U/L (16-63); Albumin Level 2.9 g/dL (3.4-5.0); Alkaline Phosphatase 87 U/L (46-116); Anion Gap 6 mmol/L (8-16); Aspartate Amino Transferase 15 U/L (15-37); Bilirubin,Total 0.4 mg/dL (0.00-1.00); Blood Urea Nitrogen 19 mg/dL (7-18); Calcium 8.3 mg/dL (8.5-10.1); Carbon Dioxide 27 mmol/L (21-32); Chloride 93 mmol/L (98-108); Estimated CRCL calculation 83 ml/min; Estimated Glomerular Filt Rate > 60; Glucose 121 mg/dL (70-99); INR 1.1; Osmolality Calculated 265 mOsm/kg (285-295); Partial Thromboplastin Time 31.6 SEC (23.90-30.70); Potassium 3.6 mmol/L (3.5-5.1); Prothrombin Time 11.4 Seconds (9.50-12.10); Sodium 126 mmol/L (136-145); Total Protein 5.8 g/dL (6.4-8.2)
[2021-07-22] MEDS: SODIUM CHLORIDE 0.9% IV 500 ML 999 ML IV CONT (19:40)
--- NOTE | 2021-07-22 21:03 | PC.NURSE ---
[facility] and received the exchange phone number. RN talked to the signal tower operator who gave the information to Dr. Hannon. flume ride operator stated Dr. Hannon would be returning our call within 20 minutes and to recall if not.
--- NOTE | 2021-07-22 21:28 | PC.NURSE ---
RN irrigated 16G Joseph with 100mls of sterile water due pressure build up in his lower abdomen. Pt had 250ml of bloody urine in drainage bag before irrigation. After irrigation pt had 900mls of dark red bloody urine and pt had a relief of pressure. Pt stated that he does not feel safe returning home with the constant clots. RN updated Dr. Hannon [facility]
--- NOTE | 2021-07-22 22:00 | PC.NURSE ---
RN called [facility] for possible med/surg bed placement. Per [facility], Dr. Grimes would be accepting physician and would return call.
[2021-07-23 00:10] VITALS: BP 120/59; PULSE 66; RESP 16; TEMP 36.3; O2SAT 99
== END 2021-07-23 00:36 | disposition short-term general hospital (02) ==
PROVIDERS: Emergency Provider Emergency Medicine; PCP Internal Medicine
DX: R31.0 Gross hematuria (principal); K21.9 Gastro-esophageal reflux disease without esophagitis; I10 Essential (primary) hypertension
CPT/HCPCS: 36415; 74177; 80053; 85025; 85610; 85730; 96360; 99285; J7040; Q9967

== ENCOUNTER 2021-07-23 04:22 | Inpatient (IN) | payer MEDICARE, OTHER, SELFPAY ==
[2021-07-23] VITALS (16 sets, daily range): BP systolic 106–166; BP diastolic 54–87; PULSE 63–83; RESP 10–22; TEMP 36.2–37.1; O2SAT 94–100; BMI 29.7
--- NOTE | ~2021-07-23 | XR_ITS ---
EXAMINATION: XR retrograde pyelo w/stent BI DATE: 07/23/2021 14:25 INDICATION: Right ureteral stent placement TECHNIQUE: Fluoroscopic images from a right internal ureteral stent placement are submitted for sami carlos 63 seconds of fluoroscopy time. 127 images. FINDINGS: There is a right double-J internal ureteral stent projecting in expected position, with proximal Timpson loop at the level of the renal pelvis and distal loop in the pelvis within the bladder lumen. IMPRESSION: 1. Right internal ureteral stent placement. Please refer to real-time procedural findings for elia dueñas. Reviewed, dictated and finalized at location B. IMPRESSION: 1. Right internal ureteral stent placement. Please refer to real-time procedu ral findings for details.
--- NOTE | 2021-07-23 04:56 | ADMGEN ---
This patient, Yaw Polanco, was admitted to 2 Medical Room 241-01. Patient/family oriented to hospital policies and general routines including ID bracelet, bed and alarms, visiting hours, pain management, procedures, bathroom and other care routines, personal items, smoking policy, room service/diet, and visiting hours. Information on how to activate the Rapid Response Team has been discussed. Patient/Family are encouraged to report perceived risks to care and to ask questions if they do not understand what they are told or what they should do.
[2021-07-23] MEDS: ONDANSETRON INJ 4 MG/2 ML VIAL IV PUSH ×2 (05:19→18:33)
--- NOTE | 2021-07-23 07:05 | WPDURCON ---
Assessment and Plan Assessment and plan (1) Hematuria: Qualifiers: Hematuria type: gross Qualified Code(s): R31.0 - Gross hematuria Code(s): R31.9 - Hematuria, unspecified Status: Acute (2) Urinary retention: Code(s): R33.9 - Retention of urine, unspecified Status: Acute (3) Hydronephrosis: Code(s): N13.30 - Unspecified hydronephrosis Status: Acute Assessment and Plan: Acute urinary retention, hematuria following recent cardiac stent placement. Right hydronephrosis of uncertain etiology Plan cystoscopy with clot evacuation and bilateral retrograde pyelography. Urology Consult Note HPI Date Seen: 07/23/21 Requesting Physician: Omkar Gonzalez MD Primary Care Provider: Edith Xie MD Consult Narrative Narrative: Yaw Polanco is a 85 year old male who I have known for years. Has a history of prostate cancer treated with brachytherapy in May 2009. For the past several years he has a very slowly rising PSA which we have managed expectantly. Over the past week we have been struggling with urinary retention following placement of cardiac stents. Send a his catheter was removed and he initially voided well. Later in the evening, however, he developed hematuria with passing large clots. Joseph catheter was placed at [facility] and he was transferred here. Overnight his urine is drained but continues to be bloody. CT scan of the abdomen and pelvis shows right hydronephrosis of uncertain etiology. Appears to have a small clot material bladder. Review of Systems Cardiovascular: Cardiovascular: Denies chest pain, Denies lightheadedness, Denies palpitations and Denies dyspnea Respiratory: Respiratory: Denies dyspnea Gastrointestinal: Gastrointestinal: Denies diarrhea, Denies nausea and Denies vomiting Genitourinary: Genitourinary: Denies hematuria and Denies dysuria Endocrine: Endocrine: Denies palpitations PMF Past Medical History Medical History Aortic stenosis 04/2021 echo: EF 77%, moderate , SRINIVASAN 1.5 cm2, mean grad 17 mmHg GERD (gastroesophageal reflux disease) History of stroke 04/16/2021 right frontal stroke, full recovery. Hypertension Sessile colonic polyp Surgical History Surgical History History of hip surgery Right History of knee replacement left Previous back surgery Times 2 Family History Family History Mother Heart disease age 86 Cerebrovascular accident Father Malignant neoplasm of prostate Sibling Aortic valve replaced Malignant neoplasm of prostate Social History Social History Social History: Smoking status: Former smoker Tobacco type: cigars Second hand tobacco smoke exposure: No Alcohol intake: never Substance use: never Substance use type: does not use Spiritual care concerns: No Meds Home Medications and Allergies Home Medications Medication Instructions Recorded Confirmed Type omeprazole 20 mg PO DAILY 04/16/21 07/23/21 History atorvastatin 40 mg PO DAILY 06/04/21 07/23/21 History metoprolol succinate 25 mg PO DAILY 06/04/21 07/23/21 History aspirin 81 mg PO DAILY 06/07/21 07/23/21 History guaifenesin [Mucinex] 600 mg PO BID 06/07/21 07/23/21 History acetaminophen 500 mg PO Q6H PRN 07/17/21 07/23/21 History clopidogrel 75 mg PO DAILY 07/17/21 07/23/21 History diphenhydramine-acetaminophen 1 tablet PO DIRECTED PRN 07/17/21 07/23/21 History [Tylenol PM Extra Strength] docusate sodium [Colace] 200 mg PO DAILY 07/17/21 07/23/21 History epinephrine 0.3 mg SUBCUT PRN PRN 07/17/21 07/23/21 History multivitamin [Daily Multivitamin] 1 tablet PO DAILY 07/17/21 07/23/21 History sodium chloride 1,000 m
--- NOTE | 2021-07-23 08:47 | WPDHPUPDATE1 ---
History and Physical Update Update Date/Time: 07/23/21 08:47 History and Physical has been reviewed, including an updated exam of the patient. There are NO changes in the patient's condition. Risks, benefits, and alternatives have been discussed and questions answered. Patient agrees to proceed with procedure.
[2021-07-23] MEDS: METOPROLOL SUCCINATE EXT REL 25 MG TABCR PO (09:01)
[2021-07-23] MEDS: ACETAMINOPHEN 325 MG TABLET 650 MG PO ×3 (09:02→21:07)
--- NOTE | 2021-07-23 11:23 | PM.IMHP ---
H&P: HPI History of Present Illness Date/Time: 07/23/21 11:23 Chief Complaint: Hematuria Narrative: Date of service: 07/23/2021 Yaw Polanco is an 85-year-old male with a history of prostate cancer, CAD, aortic stenosis, CVA in April 2022, and carotid artery disease s/p right transcarotid artery revascularization on 07/15/2021. The patient presented to the emergency department at [facility] on 07/22/2021 with complaints of abdominal discomfort and inability to urinate. The patient first began having issues with urinary retention 1 week prior following his TCAR procedure. He was discharged from his hospitalization with a Joseph catheter. He followed up with Dr. Stephens, urologist, on 07/19/2021 and at that time was started on Flomax. He had another appointment with Urology on 07/22/2021 and his Joseph catheter was discontinued at that time. Later that afternoon he began having lower abdominal discomfort and he states that he could not urinate. He presented to the ER at that time a Joseph catheter was placed and the patient states he was passing ?lots of coagulated blood.? He states at 1 point the tube became clotted and he again developed abdominal discomfort. He was transferred to [facility] for urology evaluation. At the time of my evaluation, the patient's symptoms have resolved. He is feeling back to his usual state of health. He is having hematuria but no longer noticing any clots in his catheter. He has been admitted to the hospitalist service for observation. Supervising physician for this history and physical is Dr. Lisa Polanco. Review of Systems Review of Systems: All systems reviewed with pertinent positives and negatives as per HPI. Patient denies shortness breath, cough, chest pain. He was experiencing episodes of dizziness and lightheadedness but he states this has resolved ever since he had his TCAR procedure last week. He does note early fatigue with activity. He has no deficits from his recent stroke in April. He is able to ambulate independently. He does note that he has lost about 10 lb since April 2021. His appetite has been slightly decreased and food has not been satting is good to him. He completed his COVID vaccine and his flu vaccine. He notes that for several months he has had increased difficulty urinating and felt as though he was not completely emptying his bladder. He states that he had planned to talk to his primary care provider about this for some time, however he then developed issues with urinary retention. He had recent cardiac catheterization in June 2021 and was to be referred for CABG and possibly aortic valve replacement. This was deferred while awaiting management of carotid artery disease. Patients PCP is Dr. Xie Seafood Processor is Dr. Augustine Vascular surgeon is Dr. Robertson [facility] Past Medical History Medical History (Updated 07/23/21 @ 12:01 by Bruna Baig PA-C) Aortic stenosis 04/2021 echo: EF 77%, moderate , SRINIVASAN 1.5 cm2, mean grad 17 mmHg Carotid artery disease S/p transcarotid artery revascularization 07/15/2021 Coronary artery disease GERD (gastroesophageal reflux disease) History of brachytherapy 2009 History of stroke 04/16/2021 right frontal stroke, full recovery. Hypertension Prostate cancer Sessile colonic polyp Surgical History Surgical History History of hip surgery Right History of knee replacement left Previous back surgery Times 2 Family History Family History Mother Heart disease age 86 Cerebrovascular accident Father Malignant neoplasm of prostate Sibling Aortic valve replaced Malignant neoplasm of prostate Social History Social History (Updated 07/23/21 @ 11:46 by Bruna Baig PA-C) Social History: Mr. Polanco lives at home with his .
[2021-07-23 12:16] LABS: Hematocrit 32.3 % (42.0-52.0); Hemoglobin 11.3 g/dL (14.0-18.0); Mean Corpuscular Hemoglobin 32.3 pg (26-34); Mean Corpuscular Volume 92.3 fl (80-100); Mean Platelet Volume 8.9 fl (7.4-10.4); Platelet Count Result 150 k/mm3 (150-375); Red Cell Distribution Width 13.4 % (11.5-14.5); White Blood Count 7.2 K/mm3 (4.5-10.0)
[2021-07-23 12:25] LABS: Anion Gap 4 mmol/L (8-16); Blood Urea Nitrogen 9 mg/dL (9-20); Calcium 8.2 mg/dL (8.4-10.2); Carbon Dioxide 27 mmol/L (22-30); Chloride 95 mmol/L (98-107); Estimated CRCL calculation 87 ml/min; Estimated Glomerular Filt Rate > 60; Glucose 98 mg/dL (65-110); Potassium 3.8 mmol/L (3.4-5.0); Sodium 126 mmol/L (137-145)
--- NOTE | 2021-07-23 13:38 | WPDANESEPPF ---
Anes - Initial Pre Proc Eval Procedure: Operation Date: 07/23/21 14:30 Proposed Procedures p Cystoscopy, Clot Evacuation, Bilateral Retrograde Pyelogram - Flavio Stephens MD Date/Time: 07/23/21 13:38 Surgeon: Bruna Baig PA-C Pre Op Diagnosis: Hematuria Patient Data Age: 85 Gender: M Height: 1.83 m Weight: 99.6 kg Last Vital Signs Temp 98.1 F 07/23/21 12:45 Pulse 63 07/23/21 12:45 Resp 20 07/23/21 12:45 BP 140/54 L 07/23/21 12:45 Pulse Ox 100 07/23/21 12:45 Allergies Allergy/AdvReac Type Severity Reaction Status Date / Time adhesive Allergy Unknown Rash Verified 07/23/21 04:54 DEMAR Inhibitors Allergy Unknown Verified 07/23/21 04:54 BEE STINGS Allergy Severe SWELLING, Uncoded 07/23/21 04:54 SOB Home Medications Medication Instructions Recorded Confirmed Type omeprazole 20 mg PO DAILY 04/16/21 07/23/21 History atorvastatin 40 mg PO DAILY 06/04/21 07/23/21 History metoprolol succinate 25 mg PO DAILY 06/04/21 07/23/21 History aspirin 81 mg PO DAILY 06/07/21 07/23/21 History guaifenesin [Mucinex] 600 mg PO BID 06/07/21 07/23/21 History acetaminophen 500 mg PO Q6H PRN 07/17/21 07/23/21 History clopidogrel 75 mg PO DAILY 07/17/21 07/23/21 History diphenhydramine-acetaminophen 1 tablet PO DIRECTED PRN 07/17/21 07/23/21 History [Tylenol PM Extra Strength] docusate sodium [Colace] 200 mg PO DAILY 07/17/21 07/23/21 History epinephrine 0.3 mg SUBCUT PRN PRN 07/17/21 07/23/21 History multivitamin [Daily Multivitamin] 1 tablet PO DAILY 07/17/21 07/23/21 History sodium chloride 1,000 mg PO DAILY 07/17/21 07/23/21 History Laboratory Tests 07/23/21 07/23/21 12:09 12:09 WBC 7.2 K/mm3 K/mm3 (4.5-10.0) RBC 3.50 M/mm3 L M/mm3 (4.6-6.20) Hgb 11.3 g/dL L D g/dL (14.0-18.0) Hct 32.3 % L % (42.0-52.0) MCV 92.3 fl fl (80-100) MCH 32.3 pg pg (26-34) MCHC 35.0 g/dl g/dl (32-36) RDW 13.4 % % (11.5-14.5) Plt Count 150 k/mm3 k/mm3 (150-375) MPV 8.9 fl fl (7.4-10.4) Sodium 126 mmol/L L mmol/L (137-145) Potassium 3.8 mmol/L mmol/L (3.4-5.0) Chloride 95 mmol/L L mmol/L (98-107) Carbon Dioxide 27 mmol/L mmol/L (22-30) Anion Gap 4 mmol/L L mmol/L (8-16) BUN 9 mg/dL mg/dL (9-20) Creatinine 0.60 mg/dL L mg/dL (0.7-1.3) Estim Creat Clear Calc 87 ml/min ml/min Estimated GFR > 60 (59 - ) Glucose 98 mg/dL mg/dL (65-110) Calcium 8.2 mg/dL L mg/dL (8.4-10.2) Patient hx anesthesia problems: none Family hx anesthesia problems: none Results Review: All pre-operative results and documents have been reviewed as part of the pre-operative evaluation. [facility] Past Medical History Medical History (Updated 07/23/21 @ 12:01 by Bruna Baig PA-C) Aortic stenosis 04/2021 echo: EF 77%, moderate , SRINIVASAN 1.5 cm2, mean grad 17 mmHg Carotid artery disease S/p transcarotid artery revascularization 07/15/2021 Coronary artery disease GERD (gastroesophageal reflux disease) History of brachytherapy 2009 History of stroke 04/16/2021 right frontal stroke, full recovery. Hypertension Prostate cancer Sessile colonic polyp Surgical History Surgical History History of hip surgery Right History of knee replacement left Previous back surgery Times 2 Family History Family History Mother Heart disease age 86 Cerebrovascular accident Father Malignant neoplasm of prostate Sibling Aortic valve replaced Malignant neoplasm of prostate Social History Social History (Updated 07/23/21 @ 11:46 by Bruna Baig PA-C) Social History: Mr. Polanco lives at home with his . He is independent in all his daily activities. He has been retired for 23 years from [employer]
[2021-07-23] MEDS: ceFAZolin SODIUM 1 GM VIAL 2 GM IV PUSH (13:56)
[2021-07-23] MEDS: LIDOCAINE HCL 2% GEL UROJET 10 ML PKG MUCOUS MEM ×2 (14:28→22:25)
[2021-07-23] MEDS: LACTATED RINGERS 1,000 ML 30 ML IV CONT ×2 (14:34→15:16)
[2021-07-23] MEDS: fentaNYL CITRATE INJ (*CRX) 100 MCG/2 ML VIAL 25 MCG IV PUSH ×6 (14:49→15:45)
[2021-07-23] MEDS: HYOSCYAMINE SULFATE 0.125 MG TABLET PO ×2 (15:10→20:05)
[2021-07-23] MEDS: ATORVASTATIN 40 MG TABLET PO (16:52)
[2021-07-23] MEDS: DOCUSATE SODIUM 100 MG CAPSULE PO (16:52)
[2021-07-23] MEDS: SODIUM CHLORIDE 1 GM TABLET PO (16:52)
[2021-07-23] MEDS: SODIUM CHLORIDE 0.9% IV 1,000 ML 100 ML IV CONT (17:00)
--- NOTE | 2021-07-23 17:28 | W.PM.PROC2 ---
Procedure Note - Detailed Date of Procedure 07/23/21 Pre-op Diagnosis Hematuria, right hydronephrosis Post-op Diagnosis Other (1. Hematuria d/t radiation cystitis 2. 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 Surgeon Flavio Stephens MD Description of Procedure Patient is brought to the operative suite where he has prepped draped in routine sterile fashion while in a dorsal lithotomy position after the uneventful induction of a general anesthetic. Cystoscopy was undertaken with a 22 F rigid cystoscope. His a moderate amount of clot which was evacuated with a Michelle syringe. Bladder mucosa shows mild hyperemia in the posterior wall consistent with catheter cystitis. He also has some oozing at the bladder neck at the site of prior radiation for prostate cancer. The remainder of the bladder mucosa is unremarkable, without erythema hemorrhage. There is no obvious intravesical foreign body or neoplasm. His a single orthotopic ureteral orifice. The right ureteral orifice appears strictured. I did a right retrograde pyelogram with an angiographic catheter and saw uniform dilatation throughout to the right ureterovesical junction. There was no obvious filling defects or other points of obstruction in the right ureter. I did dilate with a 10 cm balloon at 15 atmospheres for 4 minutes and placed a 6 F right double-J ureteral stent with the proximal coil in the renal pelvis and distal coil the bladder. Left retrograde pyelography was unremarkable. Using a rollerball electrode and a 24 F resectoscope I cauterized the bladder neck. I removed the instruments and placed a 22 F hematuria catheter to continuous irrigation. Patient was taken recovery room good condition Estimated Blood Loss -2.0 Drains Yes Packing No Pathology None sent Complications No immediate complications Condition Stable Disposition PACU
[2021-07-23 18:40] LABS: Hematocrit 34.1 % (42.0-52.0); Hemoglobin 11.9 g/dL (14.0-18.0)
[2021-07-23] MEDS: FAMOTIDINE 20 MG TABLET PO (20:05)
[2021-07-24] MEDS: ACETAMINOPHEN 325 MG TABLET 650 MG PO ×2 (01:41→21:20)
[2021-07-24] MEDS: SODIUM CHLORIDE 0.9% IV 1,000 ML 100 ML IV CONT (01:41)
[2021-07-24] MEDS: ONDANSETRON INJ 4 MG/2 ML VIAL IV PUSH (01:42)
[2021-07-24] MEDS: HYOSCYAMINE SULFATE 0.125 MG TABLET PO ×2 (01:43→21:21)
[2021-07-24 03:49] VITALS: BP 120/58; PULSE 72; RESP 20; TEMP 36.7; O2SAT 99
[2021-07-24 05:32] LABS: Hematocrit 30.5 % (42.0-52.0); Hemoglobin 10.9 g/dL (14.0-18.0); Mean Corpuscular HGB Conc 35.7 g/dl (32-36); Mean Corpuscular Hemoglobin 32.7 pg (26-34); Mean Corpuscular Volume 91.6 fl (80-100); Platelet Count Result 153 k/mm3 (150-375); Red Blood Count 3.33 M/mm3 (4.6-6.20); Red Cell Distribution Width 13.4 % (11.5-14.5); White Blood Count 9.1 K/mm3 (4.5-10.0)
[2021-07-24 05:49] LABS: Anion Gap 2 mmol/L (8-16); Blood Urea Nitrogen 9 mg/dL (9-20); Calcium 7.7 mg/dL (8.4-10.2); Carbon Dioxide 27 mmol/L (22-30); Chloride 95 mmol/L (98-107); Estimated CRCL calculation 87 ml/min; Estimated Glomerular Filt Rate > 60; Glucose 123 mg/dL (65-110); Potassium 3.6 mmol/L (3.4-5.0); Sodium 124 mmol/L (137-145)
[2021-07-24 08:02] LABS: Glucose Point of Care 119 mg/dl (65-105)
[2021-07-24 08:48] VITALS: PULSE 71
[2021-07-24] MEDS: METOPROLOL SUCCINATE EXT REL 25 MG TABCR PO (08:48)
[2021-07-24] MEDS: FAMOTIDINE 20 MG TABLET PO ×2 (08:48→21:22)
[2021-07-24] MEDS: SODIUM CHLORIDE 1 GM TABLET PO ×2 (08:48→17:08)
[2021-07-24] MEDS: ATORVASTATIN 40 MG TABLET PO (08:48)
[2021-07-24 08:50] VITALS: BP 137/68; PULSE 73; O2SAT 100
[2021-07-24 09:13] VITALS: O2SAT 100
[2021-07-24] MEDS: SIMETHICONE 80 MG TAB.CHEW PO ×2 (10:35→21:21)
[2021-07-24] MEDS: CLOPIDOGREL BISULFATE 75 MG TABLET PO (13:03)
[2021-07-24] MEDS: ASPIRIN 81 MG ENTERIC TABLET PO (13:03)
[2021-07-24 13:14] LABS: Hematocrit 34.7 % (42.0-52.0); Hemoglobin 12.1 g/dL (14.0-18.0)
[2021-07-24 13:20] LABS: Sodium 124 mmol/L (137-145)
--- NOTE | 2021-07-24 15:12 | P.PNIM_ITS ---
Progress Note: A&P Assessment and Plan (1) Urinary retention: Code(s): R33.9 - Retention of urine, unspecified Status: Acute Assessment and Plan: Patient presented with inability to urinate * Urinary retention issues started 1 week ago following TCAR procedure * Had followed up with Dr. Stephens on 07/22/2021 as an outpatient and Joseph was removed. Patient began retaining again shortly thereafter * CT abdomen/pelvis showed moderate right pelviectasis and ureterectasis without evidence of obstructing calculus and thickening of urinary bladder wall * He has been seen in consultation by Urology * Underwent cystoscopy with clot evacuation and bilateral retrograde pyelography and right ureteroscopy with right ureteral stent placement and cauterization of bladder neck on 07/23/2021. 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 At this time will resume patient's aspirin and Plavix due to his recent carotid stent. Monitor closely for recurrence of hematuria (3) Hydronephrosis: Code(s): N13.30 - Unspecified hydronephrosis Status: Acute Assessment and Plan: As above * Operative note states this is due to stricture at right UVJ * Right ureteral stent placement performed on 07/23 (4) Hyponatremia: Code(s): E87.1 - Hypo-osmolality and hyponatremia Status: Acute Assessment and Plan: Appears to be a chronic issue on review of prior labs. Etiology for chronic hyponatremia is unclear to me. * Baseline 129-130. Chronic hyponatremia managed by patient's PCP * Sodium is lower than baseline down to 124 today. He is asymptomatic * Suspect this is due to receiving IV fluids * At this time will initiate 1200 cc per day fluid restriction * Continue p.o. sodium chloride 1 g daily. Will administer additional dose of p.o. sodium chloride 1 g this evening * Recheck sodium this evening at 6:00 p.m. and again at midnight * Ensure appropriate rate of correction. No more than 8 point increase in 24 hours * Consider nephrology consult if no improvement in sodium levels (5) Anemia: Code(s): D64.9 - Anemia, unspecified Status: Acute Assessment and Plan: Likely secondary to hematuria * Hemoglobin declined from baseline of 14-15 * Slowly improving. Last hemoglobin 12.1 * No ongoing bleeding * Continue to monitor H&H (6) Carotid artery disease: Code(s): I77.9 - Disorder of arteries and arterioles, unspecified Status: Inactive Assessment and Plan: Patient is s/p right transcarotid artery revascularization on 07/15/[address] Robertson * Spoke with SLAB GRINDER at Dr. Robertson's office regarding patients dual anti-platelet therapy in light of recent hematuria on 07/23/2021. Reports Plavix should be resumed as soon as possible to avoid stent occlusion * Resume aspirin and Plavix today (7) Coronary artery disease: Code(s): I25.10 - Atherosclerotic heart disease of [place] coronary artery without angina pectoris Status: Acute Assessment and Plan: Underwent cardiac catheterization on 06/08/2021 * Revealed multivessel coronary disease * Annabelle
--- NOTE | 2021-07-24 15:12 | PM.IMPN ---
Progress Note: A&P Assessment and Plan (1) Urinary retention: Code(s): R33.9 - Retention of urine, unspecified Status: Acute Assessment and Plan: Patient presented with inability to urinate Urinary retention issues started 1 week ago following TCAR procedure Had followed up with Dr. Stephens on 07/22/2021 as an outpatient and Joseph was removed. Patient began retaining again shortly thereafter CT abdomen/pelvis showed moderate right pelviectasis and ureterectasis without evidence of obstructing calculus and thickening of urinary bladder wall He has been seen in consultation by Urology Underwent cystoscopy with clot evacuation and bilateral retrograde pyelography and right ureteroscopy with right ureteral stent placement and cauterization of bladder neck on 07/23/2021. 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 At this time will resume patient's aspirin and Plavix due to his recent carotid stent. Monitor closely for recurrence of hematuria (3) Hydronephrosis: Code(s): N13.30 - Unspecified hydronephrosis Status: Acute Assessment and Plan: As above Operative note states this is due to stricture at right UVJ Right ureteral stent placement performed on 07/23 (4) Hyponatremia: Code(s): E87.1 - Hypo-osmolality and hyponatremia Status: Acute Assessment and Plan: Appears to be a chronic issue on review of prior labs. Etiology for chronic hyponatremia is unclear to me. Baseline 129-130. Chronic hyponatremia managed by patient's PCP Sodium is lower than baseline down to 124 today. He is asymptomatic Suspect this is due to receiving IV fluids At this time will initiate 1200 cc per day fluid restriction Continue p.o. sodium chloride 1 g daily. Will administer additional dose of p.o. sodium chloride 1 g this evening Recheck sodium this evening at 6:00 p.m. and again at midnight Ensure appropriate rate of correction. No more than 8 point increase in 24 hours Consider nephrology consult if no improvement in sodium levels (5) Anemia: Code(s): D64.9 - Anemia, unspecified Status: Acute Assessment and Plan: Likely secondary to hematuria Hemoglobin declined from baseline of 14-15 Slowly improving. Last hemoglobin 12.1 No ongoing bleeding Continue to monitor H&H (6) Carotid artery disease: Code(s): I77.9 - Disorder of arteries and arterioles, unspecified Status: Inactive Assessment and Plan: Patient is s/p right transcarotid artery revascularization on 07/15/[address] Robertson Spoke with INCIDENT ANALYST at Dr. Robertson's office regarding patients dual anti-platelet therapy in light of recent hematuria on 07/23/2021. Reports Plavix should be resumed as soon as possible to avoid stent occlusion Resume aspirin and Plavix today (7) Coronary artery disease: Code(s): I25.10 - Atherosclerotic heart disease of [place] coronary artery without angina pectoris Status: Acute Assessment and Plan: Underwent cardiac catheterization on 06/08/2021 Revealed multivessel coronary disease Patient was referred to Cardiothoracic surgery for consideration of CABG and possibly aortic valve replacement This has been deferred following management of carotid artery disease. Continue with scheduled follow-up No acute issues at this time. Patient is asymptomatic. (8) Hypertension: Code(s): I10 - Essential (primary) hypertension Status: Acute Assessment and Plan: Blood pressures reviewed an
[2021-07-24 18:30] LABS: Sodium 124 mmol/L (137-145)
[2021-07-24 18:54] VITALS: BP 159/67; PULSE 72; RESP 20; TEMP 36.3; O2SAT 99
[2021-07-24 20:58] VITALS: BP 160/61; PULSE 68; RESP 18; TEMP 36.8; O2SAT 96
[2021-07-25 00:50] LABS: Sodium 124 mmol/L (137-145)
[2021-07-25 05:03] VITALS: BP 130/75; PULSE 62; RESP 16; TEMP 36.7; O2SAT 97
[2021-07-25 05:11] LABS: Hematocrit 32.8 % (42.0-52.0); Hemoglobin 11.4 g/dL (14.0-18.0); Mean Corpuscular HGB Conc 34.8 g/dl (32-36); Mean Corpuscular Hemoglobin 32.5 pg (26-34); Mean Corpuscular Volume 93.4 fl (80-100); Mean Platelet Volume 9.1 fl (7.4-10.4); Platelet Count Result 162 k/mm3 (150-375); Red Blood Count 3.51 M/mm3 (4.6-6.20); Red Cell Distribution Width 13.5 % (11.5-14.5); White Blood Count 7.3 K/mm3 (4.5-10.0)
[2021-07-25 05:25] LABS: Alanine Aminotransferase 19 U/L (4-50); Albumin Level 3.3 g/dL (3.5-5.1); Alkaline Phosphatase 72 U/L (38-126); Anion Gap 3 mmol/L (8-16); Aspartate Amino Transferase 24 U/L (17-59); Bilirubin,Total 0.6 mg/dL (0.2-1.3); Blood Urea Nitrogen 7 mg/dL (9-20); Calcium 8.4 mg/dL (8.4-10.2); Carbon Dioxide 27 mmol/L (22-30); Chloride 96 mmol/L (98-107); Estimated CRCL calculation 87 ml/min; Estimated Glomerular Filt Rate > 60; Glucose 102 mg/dL (65-110); Potassium 3.6 mmol/L (3.4-5.0); Sodium 126 mmol/L (137-145)
[2021-07-25] MEDS: DOCUSATE SODIUM 100 MG CAPSULE PO (07:54)
[2021-07-25] MEDS: CLOPIDOGREL BISULFATE 75 MG TABLET PO (07:54)
[2021-07-25] MEDS: ATORVASTATIN 40 MG TABLET PO (07:54)
[2021-07-25] MEDS: ASPIRIN 81 MG ENTERIC TABLET PO (07:54)
[2021-07-25 07:55] VITALS: PULSE 66
[2021-07-25] MEDS: FAMOTIDINE 20 MG TABLET PO (07:55)
[2021-07-25] MEDS: SODIUM CHLORIDE 1 GM TABLET PO ×2 (07:55→16:21)
[2021-07-25] MEDS: METOPROLOL SUCCINATE EXT REL 25 MG TABCR PO (07:55)
[2021-07-25] MEDS: TAMSULOSIN HCL 0.4 MG CAPSULE PO (08:23)
--- NOTE | 2021-07-25 10:20 | WPDUROPN2 ---
Progress Note: A&P Assessment and Plan (1) Urinary retention: Code(s): R33.9 - Retention of urine, unspecified Status: Acute Assessment and Plan: Martinez will be removed in office early this week--- can DC when fit per hospitalist (2) Hydronephrosis: Code(s): N13.30 - Unspecified hydronephrosis Status: Acute Assessment and Plan: Now s/p ureteral stent by Dr Stephens Subjective Subjective Date/Time Seen: 07/25/21 10:20 Feeling fine. Kept yesterday due to hyponatremia. Na was <130 in early Jun as well. Urine clear, CBI basically off. No urinary complaints. Creat 0.6. ASA/plavix has been resumed after discussion with hospitalist and store operations associate given recent stent. Review of Systems Review of Systems: All systems reviewed & are unremarkable except as noted in HPI and below Exam Const: General: cooperative and healthy appearing HENMT: Head: normal to inspection Eyes: General: appearance normal, both eyes and all related structures Resp: Effort & Inspection: normal respiratory effort : General: Yes other (martinez draining clear urine with cbi clamped) Objective Data Vital Signs Vital Signs: Vital Signs - 24 hr 07/24/21 18:54 07/24/21 20:58 07/25/21 05:03 Temperature 36.3 C L 36.8 C 36.7 C Pulse Rate 72 68 62 Respiratory Rate 20 18 16 Blood Pressure 159/67 H 160/61 H 130/75 Pulse Oximetry 99 96 97 07/25/21 07:55 Temperature Pulse Rate 66 Respiratory Rate Blood Pressure Pulse Oximetry Intake/Output Intake/Output: Intake & Output 07/22/21 07/23/21 07/24/21 07/25/21 23:59 23:59 23:59 23:59 Intake Total 2130 2930 480 Output Total 9600 1950 1250 Balance -4109 355 -934 Meds/Results Medications: Active Medications Generic Name Dose Route Start Last Admin Trade Name Freq PRN Reason Stop Dose Admin Acetaminophen 650 mg 07/23/21 08:07 07/24/21 21:20 Acetaminophen 325 Mg Tablet PO 650 mg Q4H PRN Administration Pain 1-3 Aspirin 81 mg 07/24/21 12:30 07/25/21 07:54 Aspirin 81 Mg Enteric Tablet PO 08/23/21 12:29 81 mg DAILY JENNIFER Administration Atorvastatin Calcium 40 mg 07/23/21 09:00 07/25/21 07:54 Atorvastatin 40 Mg Tablet PO 40 mg DAILY JENNIFER Administration Clopidogrel Bisulfate 75 mg 07/24/21 12:30 07/25/21 07:54 Clopidogrel Bisulfate 75 Mg Tablet PO 75 mg DAILY JENNIFER Administration Docusate Sodium 100 mg 07/23/21 09:00 07/25/21 07:54 Docusate Sodium 100 Mg Capsule PO 100 mg DAILY JENNIFER Administration Famotidine 20 mg 07/23/21 09:00 07/25/21 07:55 Famotidine 20 Mg Tablet PO 20 mg Q12HR JENNIFER Administration Hyoscyamine 0.125 mg 07/23/21 15:05 07/24/21 21:21 Hyoscyamine Sulfate 0.125 Mg Tablet PO 0.125 mg Q4H PRN Administration Bladder Spasm Metoprolol Succinate 25 mg 07/23/21 09:00 07/25/21 07:55 Metoprolol Succinate Ext Rel 25 Mg Tabcr PO 25 mg DAILY JENNIFER Administration Ondansetron HCl 4 mg 07/23/21 04:52 07/24/21 01:42 Ondansetron Inj 4 Mg/2 Ml Vial IV PUSH 4 mg Q6H PRN Administration Nausea And Vomiting Simethicone 80 mg 07/24/21 10:17 07/24/21 21:21 Simethicone 80 Mg Tab.Chew PO 80 mg QID PRN Administration Abdominal Cramping Sodium Chloride 1 gm 07/24/21 17:00 07/25/21 07:55 Sodium Chloride 1 Gm Tablet PO 1 gm BID JENNIFER Administration Tamsulosin HCl 0.4 mg 07/25/21 09:00 07/25/21 08:23 Tamsulosin Hcl 0.4 Mg Capsule PO 0.4 mg DAILY JENNIFER Administration Radiology Results: ITS Impressions Retrograde Pyelogram 07/23/21 14:32 IMPRESSION: 1. Right internal ureteral stent placement. Please refer to real-time procedural findings for details. Labs Labs: Laboratory Results - last 24 hr 07/24/21 07/24/21 07/24/21 13:09 13:09 18:10 WBC RBC Hgb 12.1 L Hct 34.7 L MCV MCH MCHC RDW Plt Count MPV Sodium 124 L 124 L Potassium Chloride Carb
[2021-07-25 12:24] LABS: Sodium 126 mmol/L (137-145)
--- NOTE | 2021-07-25 13:13 | P.DS_ITS ---
DS: Admitting Diagnosis Discharge Date 07/25/2021 Admitting Diagnosis Gross hematuria DS: Discharge Diagnosis Discharge Diagnosis (1) Urinary retention: Code(s): R33.9 - Retention of urine, unspecified Status: Acute Assessment and Plan: Patient presented to outside hospital with inability to urinate * Urinary retention issues started 1 week ago following TCAR procedure and he was discharged with Joseph * Had followed up with Dr. Stephens on 07/22/2021 as an outpatient and Joseph was removed. Patient began retaining again shortly thereafter * CT abdomen/pelvis showed moderate right pelviectasis and ureterectasis without evidence of obstructing calculus and thickening of urinary bladder wall * He was seen in consultation by Urology * Underwent cystoscopy with clot evacuation and bilateral retrograde pyelography and right ureteroscopy with right ureteral stent placement and cauterization of bladder neck on 07/23/2021. 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 Etiology for chronic hyponatremia is unclear to me. * Baseline 129-130. Chronic hyponatremia managed by patient's PCP * Sodium lower than baseline and declined to 124. Patient reamined asymptomatic with this. * Suspect decreased sodium due to IV fluids * Home sodium chloride 1 gram daily increased to BID * Sodium levels improved with fluid restriction * 126 at time of discharge. Continue fluid restriction and sodium chloride 1 g BID on discharge. * Repeat sodium levels as an outpatient tomorrow. Pt has follow up appt with PCP tomorrow, 07/26. I spoke with PCP Dr. Xie to inform. (5) Anemia: Code(s): D64.9 - Anemia, unspecified Status: Acute Assessment and Plan: Likely secondary to hematuria * Hematuria resolved and no ongoing bleeding. * Repeat H&H on Monday to ensure remaining stable. (6) Carotid artery disease: Code(s): I77.9 - Disorder of arteries and arterioles, unspecified Status: Inactive Assessment and Plan: Patient is s/p right transcarotid artery revascularization on 07/15/[address] Robertson * Spoke with FIRER TUNNEL KILN at Dr. Robertson's office regarding patients dual anti-platelet therapy in light of recent hematuria on 07/23/2021. Reports Plavix should be resumed as soon as possible to avoid stent occlusion * Aspirin and plavix resumed on 07/24/21. (7) Coronary artery disease: Code(s): I25.10 - Atherosclerotic heart disease of [place] coronary artery without angina pectoris Status: Acute Assessment and Plan:
--- NOTE | 2021-07-25 13:13 | PM.DS ---
DS: Admitting Diagnosis Discharge Date 07/25/2021 Admitting Diagnosis Gross hematuria DS: Discharge Diagnosis Discharge Diagnosis (1) Urinary retention: Code(s): R33.9 - Retention of urine, unspecified Status: Acute Assessment and Plan: Patient presented to outside hospital with inability to urinate Urinary retention issues started 1 week ago following TCAR procedure and he was discharged with Joseph Had followed up with Dr. Stephens on 07/22/2021 as an outpatient and Joseph was removed. Patient began retaining again shortly thereafter CT abdomen/pelvis showed moderate right pelviectasis and ureterectasis without evidence of obstructing calculus and thickening of urinary bladder wall He was seen in consultation by Urology Underwent cystoscopy with clot evacuation and bilateral retrograde pyelography and right ureteroscopy with right ureteral stent placement and cauterization of bladder neck on 07/23/2021. 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 Etiology for chronic hyponatremia is unclear to me. Baseline 129-130. Chronic hyponatremia managed by patient's PCP Sodium lower than baseline and declined to 124. Patient reamined asymptomatic with this. Suspect decreased sodium due to IV fluids Home sodium chloride 1 gram daily increased to BID Sodium levels improved with fluid restriction 126 at time of discharge. Continue fluid restriction and sodium chloride 1 g BID on discharge. Repeat sodium levels as an outpatient tomorrow. Pt has follow up appt with PCP tomorrow, 07/26. I spoke with PCP Dr. Xie to inform. (5) Anemia: Code(s): D64.9 - Anemia, unspecified Status: Acute Assessment and Plan: Likely secondary to hematuria Hematuria resolved and no ongoing bleeding. Repeat H&H on Monday to ensure remaining stable. (6) Carotid artery disease: Code(s): I77.9 - Disorder of arteries and arterioles, unspecified Status: Inactive Assessment and Plan: Patient is s/p right transcarotid artery revascularization on 07/15/[address] Robertson Spoke with STRUCTURAL ANALYSIS ENGINEER at Dr. Robertson's office regarding patients dual anti-platelet therapy in light of recent hematuria on 07/23/2021. Reports Plavix should be resumed as soon as possible to avoid stent occlusion Aspirin and plavix resumed on 07/24/21. (7) Coronary artery disease: Code(s): I25.10 - Atherosclerotic heart disease of [place] coronary artery without angina pectoris Status: Acute Assessment and Plan: Underwent cardiac catheterization on 06/08/2021 Revealed multivessel coronary disease Patient was referred to Cardiothoracic surgery for consideration of CABG and possibly aortic valve replacement This has been deferred following management of carotid artery disease. Continue with scheduled follow-up (8) Hypertension: Code(s): I10 - Essential (primary) hypertension Status: Acute Assessment and Florentino
[2021-07-25 15:03] LABS: Hemoglobin 11.8 g/dL (14.0-18.0)
[2021-07-25 15:36] VITALS: BP 130/66; PULSE 64; RESP 20; TEMP 36.6; O2SAT 100
--- NOTE | 2021-07-25 18:51 | PC.NURSE ---
Pt had CBI D/C at 1715 and observed until 1849 no further blood or clots observed, H/H stable, pt educated extensively on s/s of urinaty obstruction, and if bleeding and clots resume, or martinez catheter is not draining to return to E.R. Pt verbalized understanding and reports he understands and has been through this previously and knows what to do.
== END 2021-07-25 19:30 | disposition home or self-care (01) | DRG 660 ==
PROVIDERS: Urology; Admitting Provider Internal Medicine; PCP Internal Medicine; Visit Provider Physician Assistant
PROC: 0T768DZ Dilation of Right Ureter with Intraluminal Device, Via Natural or Artificial Opening Endoscopic (ICD-10-PCS; CPT 52352; principal; 2021-07-23 14:30)
DX: N30.41 Irradiation cystitis with hematuria (principal); N13.1 Hydronephrosis with ureteral stricture, not elsewhere classified; E87.1 Hypo-osmolality and hyponatremia; D62 Acute posthemorrhagic anemia; T50.8X5A Adverse effect of diagnostic agents, initial encounter; I25.10 Atherosclerotic heart disease of native coronary artery without angina pectoris; R31.0 Gross hematuria; I35.0 Nonrheumatic aortic (valve) stenosis; K21.9 Gastro-esophageal reflux disease without esophagitis; I10 Essential (primary) hypertension; I77.89 Other specified disorders of arteries and arterioles; Z96.652 Presence of left artificial knee joint; Z85.51 Personal history of malignant neoplasm of bladder; Z86.73 Personal history of transient ischemic attack (TIA), and cerebral infarction without residual deficits; Z87.891 Personal history of nicotine dependence; Z79.82 Long term (current) use of aspirin
CPT/HCPCS: 36415; 74420; 80048; 80053; 82948; 84295; 85014; 85018; 85027; A9270; C1726; C1757; C1758; C1769; C2617; J0690; J2370; J2405; J2704; J3010; J7030; J7120; Q9966

== ENCOUNTER 2021-07-26 15:21 | Outpatient (CLI) | payer MEDICARE, SELFPAY ==
[2021-07-26 15:38] LABS: Basophils Absolute Auto 0.03 K/mm3 (0.00-0.10); Basophils Percent Auto 0.4 % (0.0-1.0); Eosinophils Percent Auto 2.5 % (1.0-6.0); Hemoglobin 12.3 g/dL (12.4-15.3); Immature Granulocyte Absolute 0.03 K/mm3 (0.00-0.00); Immature Granulocyte Percent A 0.4 % (0.0-0.0); Lymphocytes Absolute Auto 1.13 K/mm3 (1.10-4.50); Lymphocytes Percent Auto 14.1 % (18.0-42.0); Mean Corpuscular HGB Conc 35.1 g/dL (32.0-36.0); Mean Corpuscular Hemoglobin 32.5 pg (27.0-31.0); Mean Corpuscular Volume 92.6 fL (78.0-102.0); Mean Platelet Volume 8.4 fl (8.7-11.0); Monocytes Percent Auto 12.5 % (2.0-11.0); Neutrophils Absolute Auto 5.6 K/mm3 (1.7-7.2); Neutrophils Percent Auto 70.1 % (50.0-70.0); Platelet Count Result 177 K/mm3 (150-420); Red Blood Count 3.78 M/mm3 (4.70-6.10); Red Cell Distribution Width 13.4 % (11.6-14.4)
[2021-07-26 17:51] LABS: Anion Gap 7 mmol/L (8-16); Blood Urea Nitrogen 15 mg/dL (7-18); Calcium 8.6 mg/dL (8.5-10.1); Carbon Dioxide 27 mmol/L (21-32); Chloride 94 mmol/L (98-108); Estimated Glomerular Filt Rate > 60; Glucose 104 mg/dL (70-99); Osmolality Calculated 266 mOsm/kg (285-295); Potassium 3.8 mmol/L (3.5-5.1); Sodium 128 mmol/L (136-145)
== END 2021-07-26 15:22 | disposition home or self-care (01) ==
LOC: CHSLAB 15:23
PROVIDERS: PCP Internal Medicine; Visit Provider Physician Assistant
DX: D64.9 Anemia, unspecified (principal); E87.1 Hypo-osmolality and hyponatremia
CPT/HCPCS: 36415; 80048; 85014; 85018; 85025

== ENCOUNTER 2021-08-10 12:40 | Outpatient (CLI) | payer MEDICARE, SELFPAY ==
[2021-08-10 13:20] LABS: Anion Gap 7 mmol/L (8-16); Blood Urea Nitrogen 15 mg/dL (7-18); Calcium 8.9 mg/dL (8.5-10.1); Carbon Dioxide 29 mmol/L (21-32); Chloride 95 mmol/L (98-108); Estimated Glomerular Filt Rate > 60; Glucose 91 mg/dL (70-99); Osmolality Calculated 272 mOsm/kg (285-295); Potassium 4.4 mmol/L (3.5-5.1); Sodium 131 mmol/L (136-145)
== END 2021-08-10 12:41 | disposition home or self-care (01) ==
LOC: CHSLAB 12:41
PROVIDERS: PCP Internal Medicine; Visit Provider Internal Medicine
DX: I10 Essential (primary) hypertension (principal)
CPT/HCPCS: 36415; 80048

== ENCOUNTER 2021-09-30 14:58 | Outpatient (NON) | payer MEDICARE, SELFPAY ==
[2021-09-30 15:29] LABS: Appearance Urine Turbid (Clear); Bilirubin Urine Negative (Negative); Blood Urine 3+ (Negative); Glucose Urine UA Trace (Negative); Ketones Urine 1+ (Negative); Leukocyte Esterase Ur 2+ (Negative); Nitrate Urine Positive (Negative); Protein Urine 3+ (Negative); Specific Grav Ur 1.015 (1.010-1.020); Urobilinogen Urine >=8.0 mg/dL (0.2-1.0)
[2021-09-30 15:35] LABS: Add Urine Microscopic? YES; Bacteria Urine Trace /hpf; Color Urine Dark Brown (Yellow); RBC Urine >75 /hpf (0-2); Squamous Epithelial Cell Urine Rare /hpf (Few)
== END 2021-09-30 14:59 | disposition home or self-care (01) ==
LOC: CHSHH 15:01
PROVIDERS: PCP Internal Medicine; Visit Provider Internal Medicine
DX: N39.0 Urinary tract infection, site not specified (principal)
CPT/HCPCS: 81001; 87086

== ENCOUNTER 2021-10-06 10:14 | Outpatient (CLI) | payer MEDICARE, OTHER, SELFPAY ==
--- NOTE | ~2021-10-06 | US_ITS ---
EXAMINATION:US venous doppler LE BI INDICATION:Bilateral lower extremity swelling. TECHNIQUE: Multiple grayscale, color flow and Doppler images of the right and left lower extremity de ep venous systems were obtained and reviewed. COMPARISON:03/22/2013 FINDINGS: The common femoral, superficial femoral and popliteal veins demonstrate normal respiratory variation, augmentation and compressibility. Color flow is also seen within the posterior tibial, pe roneal, greater saphenous and profunda veins. There is a persistent heterogeneous partially cystic ma ss in the right popliteal fossa similar in appearance to prior examination, likely complicated Mchugh' s cyst or hematoma. IMPRESSION: 1: No lower extremity deep venous thrombosis. Reviewed, dictated and finalized at location A.
== END 2021-10-06 10:15 | disposition home or self-care (01) ==
LOC: CHSIMG 10:18
PROVIDERS: PCP Internal Medicine; Visit Provider Internal Medicine
DX: M79.89 Other specified soft tissue disorders (principal); Z98.890 Other specified postprocedural states
CPT/HCPCS: 93970

== ENCOUNTER 2021-10-11 09:29 | Outpatient (CLI) | payer MEDICARE, OTHER, SELFPAY ==
--- NOTE | ~2021-10-11 | XR_ITS ---
XR abdomen/kub 1V 10/11/2021 10:03 Indication: Gross hematuria Procedure: KUB Comparison: CT dated 10/11/2021 Findings: There are innumerable amorphous nodular calcifications overlying the lower pelvis, possibly aspirated barium. Small left pleural effusion. There is a right internal ureteral stent. There is a right renal stone. Bowel gas pattern nonobstructive with moderate colonic fecal loading. There are ra diation implant seeds in the prostate bed. Severe lower thoracic and lumbar spondylosis. Impression: 1: Nonobstructive bowel gas pattern. 2: Right nephrolithiasis. 3: Innumerable amorphous nodular calcifications in the lung bases, possibly aspirated barium. 4: Small left pleural effusion. Reviewed, dictated and finalized at location B. Impression: 1: Nonobstructive bowel gas pattern. 2: Right nephrolithiasis. 3: Innumerable amorphous nodular calcifications in the lung bases, possibly as pirated barium. 4: Small left pleural effusion.
--- NOTE | ~2021-10-11 | CT_ITS ---
EXAMINATION: CT abdomen pelvis wo con DATE: 10/11/2021 10:02 INDICATION: Gross hematuria for one month TECHNIQUE: Computed tomography (CT) of the abdomen and pelvis was performed without intravenous contr ast. Automated exposure control and iterative reconstruction technique were employed. Exam dose: 736 .03 mGy-cm total exam DLP. COMPARISON: 07/23/2021 bilateral retrograde pyelogram 07/22/2021 CT abdomen pelvis FINDINGS: Interval mild left pleural effusion since 07/22/2021. Bilateral lower lobe dependent infiltr ate or atelectasis, primarily on the left. Numerous small excessively calcified nodules in the peripheral bilateral lower lobes are again presen t. Interval small pericardial effusion since 07/22/2021. Heart size is within normal range. Cholelithiasis. No pericholecystic fluid or fat stranding. No bile duct or pancreatic duct dilatation . There are scattered hepatic and splenic calcified granulomas consistent with old granulomatous diseas e. No hepatic space-occupying mass lesion. No bile duct or pancreatic duct dilatation. No pancreatic mas s lesion or calcification. Normal splenic size. Normal morphology of the adrenal glands. 5 mm nonobstructing lower pole right renal calculus. No other urinary tract calculus is noted. Right internal urinary stent with proximal pigtail in right renal pelvis, distal pigtail in urinary b ladder. There is lateral perinephric stranding and right peripelvic and periureteral stranding. Infection is not excluded. There is diffuse prominent thickening and emphysema of the urinary bladder wall, consistent with emph ysematous cystitis. There is a Joseph catheter within the urinary bladder, which likely accounts for a ir in the bladder lumen. There are numerous radiopaque seeds in the prostate gland. Diverticulosis of the colon; no CT evidence of diverticulitis. No bowel obstruction or intraperitonea l free air. There is atherosclerotic calcification of the abdominal aorta but no aneurysm. No intraperitoneal or retroperitoneal or pelvic mass lesion or adenopathy or ascites. 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 There is severe degenerative disc disease of the lumbar spine. Degenerative change at the lumbar apop hyseal joints. Bilateral hip osteoarthritis. Particularly prominent chronic benign-appearing cysts are noted at the junction of the right femoral head and neck. IMPRESSION: Prominent thickening and emphysema of the urinary bladder wall consistent with emphysema tous cystitis Right internal urinary stent in expected position 5 mm lower pole nonobstructing right renal calculus Prostate seeds Chronic prominent diffuse urinary bladder wall thickening may be due in part to bladder outlet obstru ction in addition to suspected cystitis Cholelithiasis Small pericardial effusion since 07/22/2021 Interval mild left pleural effusion since 07/22/2021 Reviewed, dictated and finalized at Location A. Reviewed, dictated and finalized at location A. IMPRESSION: Prominent thickening and emphysema of the urinary bladder wall con sistent with emphysematous cystitis Right internal urinary stent in expected position 5 mm lower pole nonobstructing right renal calculus Prostate seeds Chronic prominent diffuse urinary bladder wall thickening may be due in part to bladder outlet obstruction in addition to suspected cystitis Cholelithiasis Small pericardial effusion since 07/22/2021 Interval mild left pleural effusion since 07/22/2021
== END 2021-10-11 09:30 | disposition home or self-care (01) ==
LOC: CHSIMG 09:31
PROVIDERS: PCP Internal Medicine; Visit Provider Nurse Practitioner Adult Health
DX: R31.0 Gross hematuria (principal)
CPT/HCPCS: 74018; 74176

== ENCOUNTER 2021-10-20 22:53 | Emergency (ER) | payer MEDICARE, OTHER, SELFPAY ==
--- NOTE | ~2021-10-20 | CT_ITS ---
EXAMINATION: CT abdomen pelvis wo con DATE: 10/21/2021 00:44 INDICATION: Urinary retention. Suprapubic fullness. TECHNIQUE: Computed tomography (CT) of the abdomen and pelvis was performed without intravenous contr ast. Automated exposure control and iterative reconstruction technique were employed. The dose-length product was 706.07 mGy-cm. COMPARISON: CT abdomen and pelvis 10/11/2021 FINDINGS: The visualized portions of the lung bases demonstrate chronic interstitial lung disease inc luding septal thickening with calcifications. There is a small left pleural effusion. The heart size is normal. There is a small pericardial effusion. Calcifications in the liver and spleen are consiste nt with old granulomatous disease. There are gallstones in the gallbladder, which is normal in size. The pancreas, adrenal glands, and left kidney are normal. There is a 5 mm stone in right kidney. Ther e is mild right hydronephrosis and hydroureter with urothelial thickening. The bladder is not well di stended. Bladder wall thickening is noted. There is a Joseph catheter in expected position. The prosta te is mildly enlarged. There are brachytherapy seeds in the prostate. There are no dilated loops of b owel. There is diverticulosis of the colon without evidence of diverticulitis. The appendix is not vi sualized. There is an umbilical hernia containing fat. There are no pathologically enlarged lymph nod es. There is no free intraperitoneal fluid. There is a benign bone island in left pelvis and the prox imal femora. There is lumbar levoscoliosis and severe spondylosis. IMPRESSION: 1. Mild right hydronephrosis and hydroureter with urothelial thickening, consistent with inflammation versus infection. 2. Nonobstructing right kidney stone. 3. Bladder wall thickening again seen, which may be seen with cystitis or chronic outlet obstruction. 4. Stable small left pleural effusion. 5. Stable small pericardial effusion. Reviewed, dictated and finalized at location B. IMPRESSION: 1. Mild right hydronephrosis and hydroureter with urothelial thickening, consis tent with inflammation versus infection. 2. Nonobstructing right kidney stone. 3. Bladder wall thickening again seen, which may be seen with cystitis or chron ic outlet obstruction. 4. Stable small left pleural effusion. 5. Stable small pericardial effusion.
[2021-10-20 23:04] VITALS: BP 138/72; PULSE 86; RESP 18; TEMP 36.5; O2SAT 97
[2021-10-20 23:39] LABS: Add Urine Microscopic? YES; Appearance Urine Cloudy (Clear); Bilirubin Urine 1+ (Negative); Blood Urine 3+ (Negative); Color Urine Orange (Yellow); Glucose Urine UA Negative (Negative); Ketones Urine Trace (Negative); Leukocyte Esterase Ur 1+ (Negative); Nitrate Urine Negative (Negative); Protein Urine 2+ (Negative); Specific Grav Ur 1.015 (1.010-1.020); pH Urine 6.5 (5.0-8.0)
[2021-10-20 23:45] LABS: RBC Urine >75 /hpf (0-2)
[2021-10-20 23:46] LABS: Bacteria Urine Trace /hpf; Mucus Urine Rare /lpf
--- NOTE | 2021-10-21 00:02 | PC.NURSE ---
Joseph placed, bladder still feels distended on palpation. ERP notified
--- NOTE | 2021-10-21 00:21 | ED.MALEGU ---
HPI - Male Genitourinary General Chief complaint: Urogenital-Male Stated complaint: trouble urinating Time Seen by Provider: 10/20/21 22:57 Source: patient and RN notes reviewed Mode of arrival: ambulatory Limitations: no limitations History of Present Illness HPI Narrative: pt had cystoscopy and urinary catheter removal today. unable to empty his bladder subsequently. Onset (ago): hour(s) (12) Duration: constant Location: abdomen (suprapubic) Radiation: abdomen Severity: moderate Severity scale (1-10): 6 Quality: aching and dull Relieving factors: none Exacerbating factors: none Context: recent surgery Associated symptoms: Reports urinary retention Related Data Home Medications Medication Instructions Recorded Confirmed omeprazole 20 mg capsule,delayed 20 mg PO DAILY 04/16/21 10/20/21 release atorvastatin 40 mg tablet 40 mg PO DAILY 06/04/21 10/20/21 guaifenesin 600 mg tablet, 600 mg PO BID 06/07/21 10/20/21 extended release 12 hr (Mucinex) clopidogrel 75 mg tablet 75 mg PO DAILY 07/17/21 10/20/21 tamsulosin 0.4 mg capsule (Flomax) 0.4 mg PO DAILY 07/24/21 10/20/21 famotidine 20 mg tablet 20 mg PO DAILY 09/24/21 10/20/21 losartan 50 mg tablet 50 mg PO DAILY 09/24/21 10/20/21 Allergies Allergy/AdvReac Type Severity Reaction Status Date / Time adhesive Allergy Unknown Rash Verified 10/20/21 23:09 DEMAR Inhibitors Allergy Unknown Verified 10/20/21 23:09 oxycodone AdvReac Nausea Verified 10/20/21 23:09 BEE STINGS Allergy Severe SWELLING, Uncoded 10/20/21 23:09 SOB Review of Systems Review of Systems: All systems reviewed & are unremarkable except as noted in HPI and below Constitutional: Constitutional: Reports no additional constitutional complaints Eyes: Eyes: Reports no additional eye complaints ENT: Reports system reviewed and no additional complaints, except as documented Cardiovascular: Cardiovascular: Reports no additional cardiovascular complaints Respiratory: Respiratory: Reports no additional respiratory complaints Gastrointestinal: Gastrointestinal: Reports no additional gastrointestinal complaints Genitourinary: Genitourinary: Reports oliguria Comments: suprapubic abdominal pain Musculoskeletal: Musculoskeletal: Reports no additional musculoskeletal complaints Integumentary/Breasts: Skin/Breast: Reports system reviewed and no additional complaints, except as docu Neurologic: Reports system reviewed and no additional complaints, except as documented Psychiatric: Psychiatric: Reports no additional psychiatric complaints Endocrine: Endocrine: Reports no additional endocrine complaints Hematologic/Lymphatic: Hematologic/Lymphatic: Reports no additional hematologic/lymphatic complaints Allergic/Immunologic: Allergic/Immunologic: Reports no additional allergic/immunologic complaints [facility] Past Medical History Medical History Aortic stenosis 04/2021 echo: EF 77%, moderate , SRINIVASAN 1.5 cm2, mean grad 17 mmHg Carotid artery disease S/p transcarotid artery revascularization 07/15/2021 Coronary artery disease GERD (gastroesophageal reflux disease) History of brachytherapy 2009 History of stroke 04/16/2021 right frontal stroke, full recovery. Hypertension Prostate cancer Sessile colonic polyp Urinary retention UTI (urinary tract infection) Surgical History Surgical History History of hip surgery Right History of knee replacement left Previous back surgery Times 2 Family History Family History Mother Heart disease age 86 Cerebrovascular accident Father Malignant neoplasm of prostate Sibling Aortic valve replaced Malignant neoplasm of prostate Social History Social History Social History: Mr. Collin metz
[2021-10-21] MEDS: MORPHINE SULFATE (*CRX) 4 MG/ML INJ IM (00:26)
[2021-10-21] MEDS: ONDANSETRON HCL ODT 4 MG TABLET PO (00:26)
[2021-10-21] MEDS: cefTRIAXone 1 GM, LIDOCAINE HCL 1% LOCAL INJ 2.1 ML IM (00:27)
[2021-10-21 00:53] VITALS: BP 137/73; PULSE 74; RESP 18; O2SAT 97
--- NOTE | 2021-10-21 02:24 | PC.NURSE ---
exchange called for richard leonard [phone]
[2021-10-21 02:33] LABS: Basophils Absolute Auto 0.04 K/mm3 (0.00-0.10); Basophils Percent Auto 0.8 % (0.0-1.0); Eosinophils Absolute Auto 0.27 K/mm3 (0.02-0.50); Eosinophils Percent Auto 5.4 % (1.0-6.0); Hematocrit 28.1 % (37.0-46.0); Hemoglobin 8.9 g/dL (12.4-15.3); Immature Granulocyte Absolute 0.02 K/mm3 (0.00-0.00); Immature Granulocyte Percent A 0.4 % (0.0-0.0); Lymphocytes Absolute Auto 1.21 K/mm3 (1.10-4.50); Lymphocytes Percent Auto 24.3 % (18.0-42.0); Mean Corpuscular HGB Conc 31.7 g/dL (32.0-36.0); Mean Corpuscular Hemoglobin 29.9 pg (27.0-31.0); Mean Corpuscular Volume 94.3 fL (78.0-102.0); Mean Platelet Volume 8.2 fl (8.7-11.0); Monocytes Absolute Auto 0.63 K/mm3 (0.10-0.90); Monocytes Percent Auto 12.7 % (2.0-11.0); Neutrophils Absolute Auto 2.8 K/mm3 (1.7-7.2); Neutrophils Percent Auto 56.4 % (50.0-70.0); Platelet Count Result 191 K/mm3 (150-420); Red Blood Count 2.98 M/mm3 (4.70-6.10); Red Cell Distribution Width 14.6 % (11.6-14.4)
[2021-10-21 02:54] LABS: Lactic Acid Reflex 0.5 mmol/L (0.4-2.0)
--- NOTE | 2021-10-21 02:57 | PC.NURSE ---
dr leonard returned
[2021-10-21 03:01] LABS: Alanine Aminotransferase 18 U/L (16-63); Albumin Level 2.6 g/dL (3.4-5.0); Alkaline Phosphatase 87 U/L (46-116); Anion Gap 4 mmol/L (8-16); Aspartate Amino Transferase 13 U/L (15-37); Bilirubin,Total 0.4 mg/dL (0.00-1.00); Blood Urea Nitrogen 11 mg/dL (7-18); Calcium 8.4 mg/dL (8.5-10.1); Carbon Dioxide 29 mmol/L (21-32); Chloride 101 mmol/L (98-108); Estimated Glomerular Filt Rate > 60; Glucose 112 mg/dL (70-99); Osmolality Calculated 278 mOsm/kg (285-295); Potassium 3.8 mmol/L (3.5-5.1); Sodium 134 mmol/L (136-145); Total Protein 5.8 g/dL (6.4-8.2)
[2021-10-21 03:23] VITALS: BP 136/78; PULSE 68; RESP 16; TEMP 36.7; O2SAT 96
== END 2021-10-21 03:24 | disposition home or self-care (01) ==
PROVIDERS: Emergency Provider Emergency Medicine; PCP Internal Medicine
DX: N39.0 Urinary tract infection, site not specified (principal); N12 Tubulo-interstitial nephritis, not specified as acute or chronic; I25.10 Atherosclerotic heart disease of native coronary artery without angina pectoris; K21.9 Gastro-esophageal reflux disease without esophagitis; I10 Essential (primary) hypertension; Z85.46 Personal history of malignant neoplasm of prostate
CPT/HCPCS: 36415; 74176; 80053; 81001; 83605; 85025; 96372; 99284; A9270; J0696; J2270

== ENCOUNTER 2021-11-04 12:21 | Outpatient (CLI) | payer MEDICARE, OTHER, SELFPAY ==
--- NOTE | ~2021-11-04 | XR_ITS ---
XR abdomen obstructive series 11/04/2021 12:52 Indication: Constipation Procedure: Supine and upright views of abdomen Comparison: 10/11/2021 Findings: Bowel gas pattern nonobstructive with large amount of retained fecal material in the colon. There are multiple focal hyperdensities in the lung bases, likely aspirated barium. Small pleural ef fusions versus pleural thickening. Severe lumbar spondylosis. There are pelvic phleboliths. There are radiation therapy implants in the prostate bed. Impression: 1: Nonobstructive bowel gas pattern with large amount of retained fecal material in the colon. Reviewed, dictated and finalized at location A. Impression: 1: Nonobstructive bowel gas pattern with large amount of retained fecal materia l in the colon.
[2021-11-04 12:49] LABS: Anion Gap 5 mmol/L (8-16); Blood Urea Nitrogen 10 mg/dL (7-18); Calcium 8.6 mg/dL (8.5-10.1); Carbon Dioxide 29 mmol/L (21-32); Chloride 100 mmol/L (98-108); Estimated Glomerular Filt Rate > 60; Glucose 104 mg/dL (70-99); Osmolality Calculated 277 mOsm/kg (285-295); Potassium 4.5 mmol/L (3.5-5.1); Sodium 134 mmol/L (136-145)
== END 2021-11-04 12:22 | disposition home or self-care (01) ==
LOC: CHSLAB 12:25
PROVIDERS: PCP Internal Medicine; Visit Provider Internal Medicine
DX: K59.00 Constipation, unspecified (principal)
CPT/HCPCS: 36415; 74019; 80048; 83735

== ENCOUNTER 2021-11-05 11:58 | Outpatient (NON) | payer MEDICARE, OTHER, SELFPAY ==
[2021-11-05 12:10] LABS: Basophils Absolute Auto 0.04 K/mm3 (0.00-0.10); Basophils Percent Auto 0.8 % (0.0-1.0); Eosinophils Absolute Auto 0.17 K/mm3 (0.02-0.50); Eosinophils Percent Auto 3.2 % (1.0-6.0); Hematocrit 28.8 % (37.0-46.0); Hemoglobin 9.1 g/dL (12.4-15.3); Immature Granulocyte Absolute 0.04 K/mm3 (0.00-0.00); Immature Granulocyte Percent A 0.8 % (0.0-0.0); Lymphocytes Absolute Auto 0.93 K/mm3 (1.10-4.50); Lymphocytes Percent Auto 17.7 % (18.0-42.0); Mean Corpuscular HGB Conc 31.6 g/dL (32.0-36.0); Mean Corpuscular Hemoglobin 29.1 pg (27.0-31.0); Mean Platelet Volume 9.2 fl (8.7-11.0); Monocytes Percent Auto 9.5 % (2.0-11.0); Neutrophils Absolute Auto 3.6 K/mm3 (1.7-7.2); Platelet Count Result 224 K/mm3 (150-420); Red Blood Count 3.13 M/mm3 (4.70-6.10); White Blood Count 5.3 K/mm3 (4.8-10.8)
[2021-11-05 13:10] LABS: Anion Gap 4 mmol/L (8-16); Blood Urea Nitrogen 13 mg/dL (7-18); Calcium 8.3 mg/dL (8.5-10.1); Carbon Dioxide 29 mmol/L (21-32); Chloride 99 mmol/L (98-108); Estimated Glomerular Filt Rate > 60; Ferritin 63 ng/mL (26-388); Glucose 104 mg/dL (70-99); Iron 19 ug/dL (65-175); Osmolality Calculated 274 mOsm/kg (285-295); Percent Iron Saturation 7 % (12-57); Potassium 4.3 mmol/L (3.5-5.1); Sodium 132 mmol/L (136-145)
== END 2021-11-05 11:59 | disposition home or self-care (01) ==
LOC: CHSLAB 12:01 → CHSHH 12:03
PROVIDERS: Visit Provider Internal Medicine
DX: E87.1 Hypo-osmolality and hyponatremia (principal); D50.9 Iron deficiency anemia, unspecified
CPT/HCPCS: 80048; 82728; 83540; 83550; 85025

== ENCOUNTER 2021-11-09 12:52 | Outpatient (CLI) | payer MEDICARE, OTHER, SELFPAY ==
[2021-11-09] MEDS: IRON SUCROSE COMPLEX 300 MG in SODIUM CHLORIDE 0.9% IV 250 ML 125 MG IVPB (13:10)
[2021-11-09 13:16] VITALS: BMI 27.8
[2021-11-09 13:22] VITALS: BP 122/60; PULSE 68; RESP 14; TEMP 36.5; O2SAT 99
--- NOTE | 2021-11-09 15:02 | PC.NURSE ---
Patient here for #1 of 3 IV Venofer infusions. Education given on med and a list of iron rich foods. IV Venofer administered. SEE MAR. Tolerated well. Will return November 23, 2021 for #2. Safe exit of hospital.
== END 2021-11-09 12:53 | disposition home or self-care (01) ==
LOC: CHSTREATRM 12:56
PROVIDERS: PCP Internal Medicine; Visit Provider Internal Medicine
DX: D50.9 Iron deficiency anemia, unspecified (principal)
CPT/HCPCS: 96365; 96366; J1756; J7050

== ENCOUNTER 2021-11-23 12:52 | Outpatient (CLI) | payer MEDICARE, OTHER, SELFPAY ==
[2021-11-23 13:04] VITALS: BP 129/69; PULSE 72; RESP 14; TEMP 36.4; O2SAT 97
[2021-11-23] MEDS: IRON SUCROSE COMPLEX 300 MG in SODIUM CHLORIDE 0.9% IV 250 ML 125 MG IVPB (13:16)
--- NOTE | 2021-11-23 15:14 | PC.NURSE ---
Patient here for #2 of 3 q 2 week IV Venofer infusions. Education given. No concerns voiced. IV Venofer administered. SEE MAR. Tolerated well. Safe exit of hospital. Will return Dec 07, 2021 at 1300.
== END 2021-11-23 12:53 | disposition home or self-care (01) ==
LOC: CHSTREATRM 12:54
PROVIDERS: PCP Internal Medicine; Visit Provider Internal Medicine
DX: D50.9 Iron deficiency anemia, unspecified (principal)
CPT/HCPCS: 96365; 96366; J1756; J7050

== ENCOUNTER 2021-12-07 12:55 | Outpatient (CLI) | payer MEDICARE, OTHER, SELFPAY ==
[2021-12-07 13:01] VITALS: BMI 27.8
[2021-12-07 13:10] VITALS: BP 103/60; PULSE 64; RESP 14; TEMP 36.6; O2SAT 99
[2021-12-07] MEDS: IRON SUCROSE COMPLEX 300 MG in SODIUM CHLORIDE 0.9% IV 250 ML 125 MG IVPB (13:10)
--- NOTE | 2021-12-07 14:57 | PC.NURSE ---
Patient here for #2 of 3 IV Venofer infusions. Education given. Reports did ok with last 2 infusions. IV Venofer administered. SEE MAR. Tolerated well. Safe exit of the hospital.
== END 2021-12-07 12:56 | disposition home or self-care (01) ==
LOC: CHSTREATRM 12:59
PROVIDERS: PCP Internal Medicine; Visit Provider Internal Medicine
DX: D50.9 Iron deficiency anemia, unspecified (principal)
CPT/HCPCS: 96365; 96366; J1756; J7050

== ENCOUNTER 2021-12-15 08:57 | Outpatient (CLI) | payer MEDICARE, SELFPAY ==
[2021-12-15 09:15] LABS: Basophils Absolute Auto 0.04 K/mm3 (0.00-0.10); Basophils Percent Auto 0.8 % (0.0-1.0); Eosinophils Percent Auto 3.9 % (1.0-6.0); Hematocrit 37.1 % (37.0-46.0); Hemoglobin 12.1 g/dL (12.4-15.3); Immature Granulocyte Absolute 0.01 K/mm3 (0.00-0.00); Immature Granulocyte Percent A 0.2 % (0.0-0.0); Lymphocytes Absolute Auto 1.26 K/mm3 (1.10-4.50); Lymphocytes Percent Auto 24.4 % (18.0-42.0); Mean Corpuscular HGB Conc 32.6 g/dL (32.0-36.0); Mean Corpuscular Hemoglobin 30.2 pg (27.0-31.0); Mean Corpuscular Volume 92.5 fL (78.0-102.0); Mean Platelet Volume 8.4 fl (8.7-11.0); Monocytes Absolute Auto 0.65 K/mm3 (0.10-0.90); Monocytes Percent Auto 12.6 % (2.0-11.0); Neutrophils Percent Auto 58.1 % (50.0-70.0); Platelet Count Result 184 K/mm3 (150-420); Red Blood Count 4.01 M/mm3 (4.70-6.10); Red Cell Distribution Width 16.9 % (11.6-14.4); White Blood Count 5.2 K/mm3 (4.8-10.8)
[2021-12-15 09:54] LABS: Alanine Aminotransferase 22 U/L (16-63); Albumin Level 3.5 g/dL (3.4-5.0); Alkaline Phosphatase 88 U/L (46-116); Anion Gap 7 mmol/L (8-16); Aspartate Amino Transferase 17 U/L (15-37); Bilirubin,Total 0.4 mg/dL (0.00-1.00); Blood Urea Nitrogen 10 mg/dL (7-18); Calcium 8.8 mg/dL (8.5-10.1); Carbon Dioxide 29 mmol/L (21-32); Chloride 97 mmol/L (98-108); Estimated Glomerular Filt Rate > 60; Glucose 94 mg/dL (70-99); Osmolality Calculated 275 mOsm/kg (285-295); Potassium 3.7 mmol/L (3.5-5.1); Sodium 133 mmol/L (136-145); Total Protein 6.3 g/dL (6.4-8.2)
== END 2021-12-15 08:58 | disposition home or self-care (01) ==
LOC: CHSLAB 08:59
PROVIDERS: PCP Internal Medicine; Visit Provider Internal Medicine
DX: R19.8 Other specified symptoms and signs involving the digestive system and abdomen (principal)
CPT/HCPCS: 36415; 80053; 85025; 87324

== ENCOUNTER 2021-12-22 10:54 | Outpatient (CLI) | payer MEDICARE, OTHER, SELFPAY ==
[2021-12-22 11:24] LABS: Basophils Absolute Auto 0.03 K/mm3 (0.00-0.10); Basophils Percent Auto 0.6 % (0.0-1.0); Eosinophils Absolute Auto 0.13 K/mm3 (0.02-0.50); Eosinophils Percent Auto 2.5 % (1.0-6.0); Hematocrit 36.8 % (37.0-46.0); Immature Granulocyte Absolute 0.02 K/mm3 (0.00-0.00); Immature Granulocyte Percent A 0.4 % (0.0-0.0); Lymphocytes Absolute Auto 0.94 K/mm3 (1.10-4.50); Lymphocytes Percent Auto 17.7 % (18.0-42.0); Mean Corpuscular HGB Conc 32.6 g/dL (32.0-36.0); Mean Corpuscular Hemoglobin 30.1 pg (27.0-31.0); Mean Corpuscular Volume 92.2 fL (78.0-102.0); Mean Platelet Volume 8.6 fl (8.7-11.0); Monocytes Absolute Auto 0.52 K/mm3 (0.10-0.90); Monocytes Percent Auto 9.8 % (2.0-11.0); Neutrophils Absolute Auto 3.7 K/mm3 (1.7-7.2); Platelet Count Result 157 K/mm3 (150-420); Red Blood Count 3.99 M/mm3 (4.70-6.10); Red Cell Distribution Width 17.2 % (11.6-14.4); White Blood Count 5.3 K/mm3 (4.8-10.8)
[2021-12-22 12:32] LABS: Ferritin 161 ng/mL (26-388); Iron 62 ug/dL (65-175); Percent Iron Saturation 22 % (12-57)
== END 2021-12-22 10:55 | disposition home or self-care (01) ==
LOC: CHSLAB 10:56
PROVIDERS: PCP Internal Medicine; Visit Provider Internal Medicine
DX: D50.9 Iron deficiency anemia, unspecified (principal)
CPT/HCPCS: 36415; 82728; 83540; 83550; 85025

== ENCOUNTER 2021-12-23 00:39 | Day surgery (SDC) | payer MEDICARE, OTHER, SELFPAY ==
[2021-12-17 09:51] VITALS: BMI 26.4
[2021-12-23 10:34] VITALS: BP 142/73; PULSE 67; RESP 16; TEMP 36.4; O2SAT 100; BMI 26.2
[2021-12-23] MEDS: LACTATED RINGERS 1,000 ML 150 ML IV CONT (10:45)
--- NOTE | 2021-12-23 11:15 | WPDANESEPPF ---
Anes - Initial Pre Proc Eval Procedure: Operation Date: 12/23/21 12:30 Proposed Procedures p Esophagogastroduodenoscopy - Joni Garcia MD Date/Time: 12/23/21 11:15 Surgeon: Joni Garcia MD Pre Op Diagnosis: epigastric pain Patient Data Age: 86 Gender: M Height: 1.83 m Weight: 87.9 kg Last Vital Signs Temp 97.6 F 12/23/21 10:34 Pulse 67 12/23/21 10:34 Resp 16 12/23/21 10:34 BP 142/73 H 12/23/21 10:34 Pulse Ox 100 12/23/21 10:34 O2 Del Method Room Air 12/23/21 10:34 Allergies Allergy/AdvReac Type Severity Reaction Status Date / Time adhesive Allergy Unknown Rash Verified 12/23/21 10:33 DEMAR Inhibitors Allergy Unknown Verified 12/23/21 10:33 oxycodone AdvReac Nausea Verified 12/23/21 10:33 BEE STINGS Allergy Severe SWELLING, Uncoded 12/17/21 10:10 SOB Home Medications Medication Instructions Recorded Confirmed Type tamsulosin 0.4 mg capsule (Flomax) 0.4 mg PO DAILY 07/24/21 12/23/21 History sodium chloride 1 gram tablet 1,000 mg PO BIDWMEAL #0 tabs 07/25/21 12/23/21 Rx aspirin 81 mg chewable tablet 81 mg PO DAILY@0800 #0 tabs 09/27/21 12/23/21 Rx (Children's Aspirin) metoprolol succinate 50 mg 25 mg PO DAILY #0 tabs 09/27/21 12/23/21 Rx tablet,extended release 24 hr pantoprazole 40 mg tablet,delayed 40 mg PO DAILY 12/17/21 12/23/21 History release Patient hx anesthesia problems: none Family hx anesthesia problems: none Results Review: All pre-operative results and documents have been reviewed as part of the pre-operative evaluation. [facility] Past Medical History Medical History Aortic stenosis 04/2021 echo: EF 77%, moderate , SRINIVASAN 1.5 cm2, mean grad 17 mmHg Carotid artery disease S/p transcarotid artery revascularization 07/15/2021 Coronary artery disease GERD (gastroesophageal reflux disease) History of brachytherapy 2009 History of stroke 04/16/2021 right frontal stroke, full recovery. Hypertension Prostate cancer Sessile colonic polyp Urinary retention UTI (urinary tract infection) Surgical History Surgical History History of hip surgery Right History of knee replacement left Previous back surgery Times 2 Family History Family History Mother Heart disease age 86 Cerebrovascular accident Father Malignant neoplasm of prostate Sibling Aortic valve replaced Malignant neoplasm of prostate Social History Social History Social History: Mr. Polanco lives at home with his . He is independent in all his daily activities. He has been retired for 23 years from [employer]. He states he has been in good health all his life. He designates his as his surrogate decision maker and would like to be a full code. Smoking status: Never smoker Tobacco type: cigars Second hand tobacco smoke exposure: No Additional smoking assessment comments: Smoked 1 cigar/day for 5 yrs over 35 yrs ago Alcohol intake: never Substance use: never Substance use type: does not use Living arrangements: with family Spiritual care concerns: No Anes - Eval Final PreProcedure Day of Procedure 12/23/21 11:15 Patient weight: normal Heart: regular rate and rhythm Lungs: clear to auscultation Airway: Mallampati scale class II Neurological: alert and oriented Last oral intake: >/= 8 hours ASA classification: III Emergent: no Anesthetic plan: proceed Anesthesia type and monitoring: general GIVS and standard monitoring Results Review: All pre-operative results and documents have been reviewed as part of the pre-operative evaluation. Informed Consent: The patient's anesthetic plan and its attendant risks and benefits were discussed with the patient/family/POA. Questions were solicite
--- NOTE | 2021-12-23 11:32 | PM.HPGS ---
History of Present Illness History of Present Illness Consent: Risks, benefits, and alternatives have been discussed and questions answered. Patient agrees to proceed with procedure. Chief complaint: epigastric pain Narrative: Yaw Polanco is a 86 year old male Food has lost 35 lb in last 6 or 7 months. He gets full quickly after a meal. This also causes him to belch excessively, and he gets pain in the epigastric area after meal. he denies dysphagia. He has had a great deal of constipation but takes all a combination of laxatives including MiraLax and suppositories has helped. Review of Systems Review of Systems: All systems reviewed & are unremarkable except as noted in HPI and below PMFSH Past Medical History Medical History Aortic stenosis 04/2021 echo: EF 77%, moderate , SRINIVASAN 1.5 cm2, mean grad 17 mmHg Carotid artery disease S/p transcarotid artery revascularization 07/15/2021 Coronary artery disease GERD (gastroesophageal reflux disease) History of brachytherapy 2009 History of stroke 04/16/2021 right frontal stroke, full recovery. Hypertension Prostate cancer Sessile colonic polyp Urinary retention UTI (urinary tract infection) Surgical History Surgical History History of hip surgery Right History of knee replacement left Previous back surgery Times 2 Family History Family History Mother Heart disease age 86 Cerebrovascular accident Father Malignant neoplasm of prostate Sibling Aortic valve replaced Malignant neoplasm of prostate Social History Social History Social History: Mr. Polanco lives at home with his . He is independent in all his daily activities. He has been retired for 23 years from [employer]. He states he has been in good health all his life. He designates his as his surrogate decision maker and would like to be a full code. Smoking status: Never smoker Tobacco type: cigars Second hand tobacco smoke exposure: No Additional smoking assessment comments: Smoked 1 cigar/day for 5 yrs over 35 yrs ago Alcohol intake: never Substance use: never Substance use type: does not use Living arrangements: with family Spiritual care concerns: No Meds Home Medications and Allergies Home Medications Medication Instructions Recorded Confirmed Type tamsulosin 0.4 mg capsule (Flomax) 0.4 mg PO DAILY 07/24/21 12/23/21 History sodium chloride 1 gram tablet 1,000 mg PO BIDWMEAL #0 tabs 07/25/21 12/23/21 Rx aspirin 81 mg chewable tablet 81 mg PO DAILY@0800 #0 tabs 09/27/21 12/23/21 Rx (Children's Aspirin) metoprolol succinate 50 mg 25 mg PO DAILY #0 tabs 09/27/21 12/23/21 Rx tablet,extended release 24 hr pantoprazole 40 mg tablet,delayed 40 mg PO DAILY 12/17/21 12/23/21 History release Allergies Allergy/AdvReac Type Severity Reaction Status Date / Time adhesive Allergy Unknown Rash Verified 12/23/21 10:33 DEMAR Inhibitors Allergy Unknown Verified 12/23/21 10:33 oxycodone AdvReac Nausea Verified 12/23/21 10:33 BEE STINGS Allergy Severe SWELLING, Uncoded 12/17/21 10:10 SOB Vital Signs Vital Signs - 24 hr 12/23/21 10:34 Temperature 36.4 C Pulse Rate 67 Respiratory Rate 16 Blood Pressure 142/73 H Pulse Oximetry 100 Oxygen Delivery Room Air Exam Const: General: alert Orientation/consciousness: patient oriented x3 Resp: Auscultation: clear to auscultation bilaterally Cardio: Rhythm: regular rhythm GI: GI Palp: Yes Soft to palpation and No Tenderness to palpation present (GI) Neuro: General: patient oriented x3 Assessment and Plan Assessment and plan (1) Epigastric pain: Code(s): R10.13 - Epigastric pain Status: Acute Assessment and Plan: EGD wit
[2021-12-23 11:58] VITALS: BP 132/72; PULSE 57; RESP 15; O2SAT 100
[2021-12-23 12:08] VITALS: BP 124/66; PULSE 60; RESP 15; O2SAT 100
[2021-12-23 12:18] VITALS: BP 138/77; PULSE 58; RESP 18; O2SAT 100
== END 2021-12-23 12:28 | disposition home or self-care (01) ==
PROVIDERS: PCP Internal Medicine; Visit Provider Internal Medicine Gastroenterology
PROC: 0DJ08ZZ Inspection of Upper Intestinal Tract, Via Natural or Artificial Opening Endoscopic (ICD-10-PCS; CPT 43235; principal; 2021-12-23 12:30)
DX: R10.13 Epigastric pain (principal); K21.9 Gastro-esophageal reflux disease without esophagitis; R14.2 Eructation; I25.10 Atherosclerotic heart disease of native coronary artery without angina pectoris; I35.0 Nonrheumatic aortic (valve) stenosis; Z86.73 Personal history of transient ischemic attack (TIA), and cerebral infarction without residual deficits; I10 Essential (primary) hypertension; Z85.46 Personal history of malignant neoplasm of prostate; Z86.010 Personal history of colon polyps; R33.9 Retention of urine, unspecified; F17.210 Nicotine dependence, cigarettes, uncomplicated; Z79.82 Long term (current) use of aspirin
CPT/HCPCS: 43239; 87081; 88305; J2704; J7120

== ENCOUNTER 2022-01-04 11:01 | Outpatient (RCR) | payer MEDICARE, OTHER, SELFPAY ==
--- NOTE | 2022-01-04 11:58 | PTOPEVAL1 ---
Evaluation Information Assessment Status Evaluation Diagnosis generalized weakness, unsteady gait Onset 09/09/21 Subjective Information patient reports he has been weak and unstead on his feet since his open heart surgery back in september of this year. he reports he had no rehab after this surgery. he reports he has had 1 fall. he reports he lowered himself slowly to the floor, but was unable to get up off the floor. He reports he feels weak and deconditioned with walking. he reports he tolerates only a few minutes of activities before feeling exhausted. he reports today he is having some issues with constipation. Reported Pain Level Pain Score 0: Self Report Assessment PT Clinical Summary mr. gallo is a pleasant 86 yo man who presents to skilled PT services for evaluation and treatment of generalized weakness and unsteady gait. he presents with signs and symptoms of weakness/ unsteady gait from residual deficits from his open heart surgery back in september. he would do well to attend and participate in skilled PT to improve his objective/functional deficits and progress towards a return to his prior level functional activity performance/quality of life. Plan of Care PT Services Indicated Yes Treatment Frequency and 3x weekly for 12 visits Duration These treatments will address the objective and functional deficits as defined above. The patient will be advanced safely and appropriately in order for the patient to progress towards his/her prior level of function. Additional exercises will be introduced and as well as a comprehensive home exercise program upon discharge, if needed, ?to ensure carryover of functional gains achieved in the clinic. This treatment plan has been reviewed and agreement upon by the patient.
--- NOTE | 2022-05-30 13:24 | PCPTNOTE ---
Mr. Polanco attended a total of 9 treatment sessions from 01/04/22 to 01/21/22. He has failed to return to the clinic and will be discharged from our care at this time.
== END 2022-01-21 23:59 | disposition home or self-care (01) ==
LOC: CHSPT 11:01
PROVIDERS: PCP Internal Medicine; Visit Provider Internal Medicine
DX: R53.1 Weakness (principal); R26.81 Unsteadiness on feet
CPT/HCPCS: 97110; 97112; 97161

== ENCOUNTER 2022-01-25 14:04 | Outpatient (CLI) | payer MEDICARE, SELFPAY ==
[2022-01-25 14:31] LABS: Basophils Absolute Auto 0.03 K/mm3 (0.00-0.10); Basophils Percent Auto 0.5 % (0.0-1.0); Eosinophils Percent Auto 1.6 % (1.0-6.0); Hematocrit 38.5 % (37.0-46.0); Hemoglobin 12.8 g/dL (12.4-15.3); Immature Granulocyte Absolute 0.02 K/mm3 (0.00-0.00); Immature Granulocyte Percent A 0.3 % (0.0-0.0); Lymphocytes Absolute Auto 1.28 K/mm3 (1.10-4.50); Lymphocytes Percent Auto 20.6 % (18.0-42.0); Mean Corpuscular HGB Conc 33.2 g/dL (32.0-36.0); Mean Corpuscular Hemoglobin 30.1 pg (27.0-31.0); Mean Corpuscular Volume 90.6 fL (78.0-102.0); Monocytes Absolute Auto 0.72 K/mm3 (0.10-0.90); Monocytes Percent Auto 11.6 % (2.0-11.0); Neutrophils Absolute Auto 4.1 K/mm3 (1.7-7.2); Neutrophils Percent Auto 65.4 % (50.0-70.0); Platelet Count Result 159 K/mm3 (150-420); Red Blood Count 4.25 M/mm3 (4.70-6.10); Red Cell Distribution Width 16.6 % (11.6-14.4); White Blood Count 6.2 K/mm3 (4.8-10.8)
[2022-01-25 15:14] LABS: Alanine Aminotransferase 18 U/L (16-63); Albumin Level 3.6 g/dL (3.4-5.0); Alkaline Phosphatase 96 U/L (46-116); Anion Gap 4 mmol/L (8-16); Aspartate Amino Transferase 14 U/L (15-37); Bilirubin,Total 0.3 mg/dL (0.00-1.00); Blood Urea Nitrogen 13 mg/dL (7-18); Calcium 8.6 mg/dL (8.5-10.1); Carbon Dioxide 30 mmol/L (21-32); Chloride 94 mmol/L (98-108); Estimated Glomerular Filt Rate > 60; Ferritin 51 ng/mL (26-388); Free T3 1.89 pg/mL (2.18-3.98); Free T4 Free Thyroxine 0.97 ng/dL (0.76-1.46); Glucose 114 mg/dL (70-99); Iron 67 ug/dL (65-175); Osmolality Calculated 267 mOsm/kg (285-295); Potassium 4.3 mmol/L (3.5-5.1); Sodium 128 mmol/L (136-145); Thyroid Stimulating Hormone 0.93 uIU/mL (0.36-3.74); Total Protein 6.4 g/dL (6.4-8.2)
== END 2022-01-25 14:05 | disposition home or self-care (01) ==
LOC: CHSLAB 14:05
PROVIDERS: PCP Internal Medicine; Visit Provider Internal Medicine
DX: D50.9 Iron deficiency anemia, unspecified (principal); K59.01 Slow transit constipation; E87.1 Hypo-osmolality and hyponatremia
CPT/HCPCS: 36415; 80053; 82728; 83540; 84439; 84443; 84481; 85025

== ENCOUNTER 2022-01-31 11:54 | Outpatient (CLI) | payer MEDICARE, SELFPAY ==
[2022-01-31 12:21] LABS: Anion Gap 4 mmol/L (8-16); Blood Urea Nitrogen 14 mg/dL (7-18); Carbon Dioxide 31 mmol/L (21-32); Chloride 96 mmol/L (98-108); Estimated Glomerular Filt Rate > 60; Glucose 116 mg/dL (70-99); Osmolality Calculated 273 mOsm/kg (285-295); Potassium 4.3 mmol/L (3.5-5.1); Sodium 131 mmol/L (136-145)
== END 2022-01-31 11:55 | disposition home or self-care (01) ==
LOC: CHSLAB 11:57
PROVIDERS: PCP Internal Medicine; Visit Provider Internal Medicine
DX: E87.1 Hypo-osmolality and hyponatremia (principal)
CPT/HCPCS: 36415; 80048

== ENCOUNTER 2022-03-02 08:50 | Outpatient (CLI) | payer MEDICARE, SELFPAY ==
[2022-03-02 09:14] LABS: Basophils Absolute Auto 0.04 K/mm3 (0.00-0.10); Basophils Percent Auto 0.7 % (0.0-1.0); Eosinophils Absolute Auto 0.22 K/mm3 (0.02-0.50); Eosinophils Percent Auto 3.9 % (1.0-6.0); Hematocrit 37.3 % (37.0-46.0); Hemoglobin 12.5 g/dL (12.4-15.3); Immature Granulocyte Absolute 0.02 K/mm3 (0.00-0.00); Immature Granulocyte Percent A 0.4 % (0.0-0.0); Lymphocytes Absolute Auto 1.19 K/mm3 (1.10-4.50); Lymphocytes Percent Auto 21.1 % (18.0-42.0); Mean Corpuscular HGB Conc 33.5 g/dL (32.0-36.0); Mean Corpuscular Hemoglobin 31.2 pg (27.0-31.0); Mean Platelet Volume 8.5 fl (8.7-11.0); Monocytes Absolute Auto 0.73 K/mm3 (0.10-0.90); Monocytes Percent Auto 12.9 % (2.0-11.0); Neutrophils Absolute Auto 3.5 K/mm3 (1.7-7.2); Platelet Count Result 145 K/mm3 (150-420); Red Blood Count 4.01 M/mm3 (4.70-6.10); Red Cell Distribution Width 15.5 % (11.6-14.4); White Blood Count 5.7 K/mm3 (4.8-10.8)
[2022-03-02 09:40] LABS: Alanine Aminotransferase 16 U/L (16-63); Albumin Level 3.3 g/dL (3.4-5.0); Alkaline Phosphatase 87 U/L (46-116); Anion Gap 4 mmol/L (8-16); Aspartate Amino Transferase 13 U/L (15-37); Bilirubin,Total 0.4 mg/dL (0.00-1.00); Blood Urea Nitrogen 13 mg/dL (7-18); Calcium 8.6 mg/dL (8.5-10.1); Carbon Dioxide 31 mmol/L (21-32); Chloride 100 mmol/L (98-108); Estimated Glomerular Filt Rate > 60; Glucose 90 mg/dL (70-99); Osmolality Calculated 280 mOsm/kg (285-295); Potassium 4.2 mmol/L (3.5-5.1); Sodium 135 mmol/L (136-145); Total Protein 6.2 g/dL (6.4-8.2)
== END 2022-03-02 08:51 | disposition home or self-care (01) ==
LOC: CHSLAB 08:52
PROVIDERS: PCP Internal Medicine; Visit Provider Internal Medicine
DX: E87.1 Hypo-osmolality and hyponatremia (principal); I10 Essential (primary) hypertension; G31.84 Mild cognitive impairment of uncertain or unknown etiology
CPT/HCPCS: 36415; 80053; 85025

== ENCOUNTER 2022-05-20 10:00 | Outpatient (RCR) | payer MEDICARE, OTHER, SELFPAY | END 2022-05-25 23:59 | disposition home or self-care (01) | LOC: CHSSENLIFE 10:00 | PROVIDERS: PCP Internal Medicine; Visit Provider Psychiatry & Neurology Psychiatry | DX: F41.1 Generalized anxiety disorder (principal) | CPT/HCPCS: 90792; 90834; 90837; 99213; G0463 ==

== ENCOUNTER 2022-05-26 13:55 | Outpatient (RCR) | payer MEDICARE, OTHER, SELFPAY | END 2022-05-26 14:48 | disposition home or self-care (01) | LOC: CHSSENLIFE 13:55 | PROVIDERS: PCP Internal Medicine; Visit Provider Psychiatry & Neurology Psychiatry | DX: F41.1 Generalized anxiety disorder (principal) | CPT/HCPCS: 99213; G0463 ==

== ENCOUNTER 2022-06-07 13:45 | Outpatient (CLI) | payer MEDICARE, OTHER, SELFPAY ==
[2022-06-07 14:10] LABS: Basophils Absolute Auto 0.06 K/mm3 (0.00-0.10); Basophils Percent Auto 0.9 % (0.0-1.0); Eosinophils Absolute Auto 0.58 K/mm3 (0.02-0.50); Eosinophils Percent Auto 8.7 % (1.0-6.0); Hemoglobin 12.8 g/dL (12.4-15.3); Immature Granulocyte Absolute 0.02 K/mm3 (0.00-0.00); Immature Granulocyte Percent A 0.3 % (0.0-0.0); Lymphocytes Absolute Auto 1.59 K/mm3 (1.10-4.50); Lymphocytes Percent Auto 23.9 % (18.0-42.0); Mean Corpuscular HGB Conc 33.7 g/dL (32.0-36.0); Mean Corpuscular Hemoglobin 33.2 pg (27.0-31.0); Mean Corpuscular Volume 98.4 fL (78.0-102.0); Monocytes Absolute Auto 0.71 K/mm3 (0.10-0.90); Monocytes Percent Auto 10.7 % (2.0-11.0); Neutrophils Absolute Auto 3.7 K/mm3 (1.7-7.2); Neutrophils Percent Auto 55.5 % (50.0-70.0); Platelet Count Result 141 K/mm3 (150-420); Red Blood Count 3.86 M/mm3 (4.70-6.10); Red Cell Distribution Width 13.2 % (11.6-14.4); White Blood Count 6.6 K/mm3 (4.8-10.8)
[2022-06-07 14:28] LABS: Hemoglobin A1C 5.5 % (<5.7)
[2022-06-07 14:49] LABS: Alanine Aminotransferase 19 U/L (16-63); Albumin Level 3.4 g/dL (3.4-5.0); Alkaline Phosphatase 102 U/L (46-116); Anion Gap 5 mmol/L (8-16); Aspartate Amino Transferase 14 U/L (15-37); Bilirubin,Total 0.3 mg/dL (0.00-1.00); Blood Urea Nitrogen 17 mg/dL (7-18); Calcium 8.4 mg/dL (8.5-10.1); Carbon Dioxide 32 mmol/L (21-32); Chloride 98 mmol/L (98-108); Cholesterol 115 mg/dL (0-200); Creatine Kinase 47 U/L (39-308); Estimated Glomerular Filt Rate > 60; Ferritin 73 ng/mL (26-388); Free T3 1.88 pg/mL (2.18-3.98); Free T4 Free Thyroxine 0.82 ng/dL (0.76-1.46); Glucose 106 mg/dL (70-99); HDL Direct 63 mg/dL (40-60); Iron 53 ug/dL (65-175); LDL Cholesterol Calculated 45 mg/dL (<130); Osmolality Calculated 281 mOsm/kg (285-295); Prostate Specific Antigen 16.3 ng/mL (< OR = 4.0); Sodium 135 mmol/L (136-145); Total Protein 6.5 g/dL (6.4-8.2); Triglycerides 37 mg/dL (0-150)
[2022-06-07 15:36] LABS: Add Urine Microscopic? YES; Appearance Urine Clear (Clear); Bilirubin Urine Negative (Negative); Blood Urine Trace-Intact (Negative); Color Urine Light Yellow (Yellow); Glucose Urine UA Negative (Negative); Ketones Urine Negative (Negative); Leukocyte Esterase Ur 3+ LEU/UL (Negative); Nitrate Urine Negative (Negative); Protein Urine Negative (Negative); Urobilinogen Urine 0.2 mg/dL (0.2-1.0); pH Urine 6.5 (5.0-8.0)
[2022-06-07 15:55] LABS: Bacteria Urine Trace /hpf; RBC Urine 0-2 /hpf (0-2); Squamous Epithelial Cell Urine Rare /hpf (Few); WBC Urine >75 /hpf (0-3)
== END 2022-06-07 13:46 | disposition home or self-care (01) ==
LOC: CHSLAB 13:49
PROVIDERS: PCP Internal Medicine; Visit Provider Internal Medicine
DX: R73.01 Impaired fasting glucose (principal); Z85.46 Personal history of malignant neoplasm of prostate; I10 Essential (primary) hypertension; D50.9 Iron deficiency anemia, unspecified; N39.0 Urinary tract infection, site not specified; E03.9 Hypothyroidism, unspecified
CPT/HCPCS: 36415; 80053; 80061; 81001; 82550; 82728; 83036; 83540; 84153; 84439; 84443; 84481; 85025; 87077; 87086; 87088; 87186

== ENCOUNTER 2022-09-06 07:27 | Outpatient (CLI) | payer MEDICARE, SELFPAY ==
[2022-09-06 07:37] LABS: Basophils Absolute Auto 0.04 K/mm3 (0.00-0.10); Basophils Percent Auto 0.6 % (0.0-1.0); Eosinophils Absolute Auto 0.21 K/mm3 (0.02-0.50); Eosinophils Percent Auto 3.4 % (1.0-6.0); Hemoglobin 13.7 g/dL (12.4-15.3); Immature Granulocyte Absolute 0.03 K/mm3 (0.00-0.00); Immature Granulocyte Percent A 0.5 % (0.0-0.0); Lymphocytes Absolute Auto 1.31 K/mm3 (1.10-4.50); Mean Corpuscular HGB Conc 34.3 g/dL (32.0-36.0); Mean Corpuscular Hemoglobin 32.8 pg (27.0-31.0); Mean Corpuscular Volume 95.7 fL (78.0-102.0); Mean Platelet Volume 8.9 fl (8.7-11.0); Monocytes Percent Auto 12.8 % (2.0-11.0); Neutrophils Absolute Auto 3.9 K/mm3 (1.7-7.2); Neutrophils Percent Auto 61.7 % (50.0-70.0); Platelet Count Result 152 K/mm3 (150-420); Red Blood Count 4.18 M/mm3 (4.70-6.10); Red Cell Distribution Width 12.8 % (11.6-14.4); White Blood Count 6.3 K/mm3 (4.8-10.8)
[2022-09-06 08:37] LABS: Anion Gap 4 mmol/L (8-16); Blood Urea Nitrogen 15 mg/dL (7-18); Calcium 8.8 mg/dL (8.5-10.1); Carbon Dioxide 32 mmol/L (21-32); Chloride 98 mmol/L (98-108); Estimated Glomerular Filt Rate > 60; Ferritin 75 ng/mL (26-388); Glucose 115 mg/dL (70-99); Iron 83 ug/dL (65-175); Osmolality Calculated 279 mOsm/kg (285-295); Potassium 4.4 mmol/L (3.5-5.1); Prostate Specific Antigen 22.3 ng/mL (< OR = 4.0); Sodium 134 mmol/L (136-145)
== END 2022-09-06 07:28 | disposition home or self-care (01) ==
LOC: CHSLAB 07:29
PROVIDERS: PCP Internal Medicine; Visit Provider Internal Medicine
DX: D50.9 Iron deficiency anemia, unspecified (principal); E87.1 Hypo-osmolality and hyponatremia; C61 Malignant neoplasm of prostate
CPT/HCPCS: 36415; 80048; 82728; 83540; 84153; 85025

== ENCOUNTER 2022-12-14 06:58 | Outpatient (CLI) | payer MEDICARE, SELFPAY ==
[2022-12-14 07:12] LABS: Basophils Absolute Auto 0.04 K/mm3 (0.00-0.10); Basophils Percent Auto 0.6 % (0.0-1.0); Eosinophils Absolute Auto 0.28 K/mm3 (0.02-0.50); Eosinophils Percent Auto 4.2 % (1.0-6.0); Hematocrit 40.8 % (37.0-46.0); Hemoglobin 14.3 g/dL (12.4-15.3); Immature Granulocyte Absolute 0.02 K/mm3 (0.00-0.00); Immature Granulocyte Percent A 0.3 % (0.0-0.0); Lymphocytes Absolute Auto 1.49 K/mm3 (1.10-4.50); Lymphocytes Percent Auto 22.3 % (18.0-42.0); Mean Corpuscular Hemoglobin 33.5 pg (27.0-31.0); Mean Corpuscular Volume 95.6 fL (78.0-102.0); Mean Platelet Volume 8.6 fl (8.7-11.0); Monocytes Absolute Auto 0.75 K/mm3 (0.10-0.90); Monocytes Percent Auto 11.2 % (2.0-11.0); Neutrophils Absolute Auto 4.1 K/mm3 (1.7-7.2); Neutrophils Percent Auto 61.4 % (50.0-70.0); Platelet Count Result 141 K/mm3 (150-420); Red Blood Count 4.27 M/mm3 (4.70-6.10); Red Cell Distribution Width 12.7 % (11.6-14.4); White Blood Count 6.7 K/mm3 (4.8-10.8)
[2022-12-14 07:13] LABS: Appearance Urine Clear (Clear); Bilirubin Urine Negative (Negative); Blood Urine Trace-Intact (Negative); Color Urine Light Yellow (Yellow); Glucose Urine UA Negative (Negative); Ketones Urine Negative (Negative); Leukocyte Esterase Ur 2+ (Negative); Nitrate Urine Negative (Negative); Protein Urine Negative (Negative); Specific Grav Ur <= 1.005 (1.010-1.020); Urobilinogen Urine 0.2 mg/dL (0.2-1.0); pH Urine 6.5 (5.0-8.0)
[2022-12-14 07:18] LABS: Add Urine Microscopic? YES; Squamous Epithelial Cell Urine Occasional /hpf (Few)
[2022-12-14 07:19] LABS: Bacteria Urine Rare /hpf
[2022-12-14 08:41] LABS: Alanine Aminotransferase 14 U/L (16-63); Albumin Level 3.5 g/dL (3.4-5.0); Alkaline Phosphatase 102 U/L (46-116); Anion Gap 7 mmol/L (8-16); Aspartate Amino Transferase 15 U/L (15-37); Bilirubin,Total 0.5 mg/dL (0.00-1.00); Blood Urea Nitrogen 15 mg/dL (7-18); Carbon Dioxide 29 mmol/L (21-32); Chloride 98 mmol/L (98-108); Cholesterol 116 mg/dL (0-200); Creatine Kinase 57 U/L (39-308); Estimated Glomerular Filt Rate > 60; Ferritin 78 ng/mL (26-388); Glucose 96 mg/dL (70-99); HDL Direct 62 mg/dL (40-60); Iron 80 ug/dL (65-175); LDL Cholesterol Calculated 49 mg/dL (<130); Osmolality Calculated 278 mOsm/kg (285-295); Potassium 4.2 mmol/L (3.5-5.1); Sodium 134 mmol/L (136-145); Total Protein 6.7 g/dL (6.4-8.2); Triglycerides 25 mg/dL (0-150); Vitamin B12 643 pg/mL (193-986)
[2022-12-14 08:53] LABS: Hemoglobin A1C 5.6 % (<5.7)
== END 2022-12-14 06:59 | disposition home or self-care (01) ==
LOC: CHSLAB 07:00
PROVIDERS: PCP Internal Medicine; Visit Provider Internal Medicine
DX: G31.84 Mild cognitive impairment of uncertain or unknown etiology (principal); D50.9 Iron deficiency anemia, unspecified; I10 Essential (primary) hypertension; E78.2 Mixed hyperlipidemia; R73.01 Impaired fasting glucose; E87.1 Hypo-osmolality and hyponatremia; D64.9 Anemia, unspecified
CPT/HCPCS: 36415; 80053; 80061; 81001; 82550; 82607; 82728; 83036; 83540; 85025

== ENCOUNTER 2022-12-19 15:44 | Outpatient (CLI) | payer MEDICARE, OTHER, SELFPAY ==
--- NOTE | ~2022-12-19 | XR_ITS ---
EXAMINATION: XR lumbar spine 2-3V DATE: 12/19/2022 16:12 INDICATION: Low back pain. Prostate cancer. TECHNIQUE: 3 views of lumbar spine were obtained. COMPARISON: CT abdomen and pelvis 10/21/2021 FINDINGS: There is 11 degrees levoscoliosis of lumbar spine. There is mild chronic anterior wedging o f T11 and T12 vertebral bodies. There is moderately decreased disc height at T12-L1 and severely decr eased disc height from L1-L2 through L5-S1. There is interbody fusion at L2-L3. There is multilevel s evere facet joint osteoarthritis. There are brachytherapy seeds in the prostate. IMPRESSION: 1. Severe lumbar spondylosis. 2. Lumbar levoscoliosis. Reviewed, dictated and finalized at location A.
--- NOTE | ~2022-12-19 | XR_ITS ---
EXAM: XR pelvis 1-2V DATE: 12/19/2022 16:12 HISTORY: LOW BACK PAIN, PROSTATE CANCER . COMPARISON: None available. FINDINGS: Normal mineralization. No fracture or dislocation. Circumscribed lytic lesion in the right femoral neck, no aggressive features and not a typical appearance for prostate metastases, possible old enchondroma. Vascular calcifications Pelvic phleboliths. Lumbar degenerative change. Mild bilater al hip osteoarthritis. Prostate seeds. IMPRESSION: No acute osseous finding in the pelvis. No radiographic evidence of sclerotic osseous met astases. Reviewed, dictated and finalized at location K. IMPRESSION: No acute osseous finding in the pelvis. No radiographic evidence of sclerotic osseous metastases.
== END 2022-12-19 15:45 | disposition home or self-care (01) ==
LOC: CHSIMG 15:47
PROVIDERS: PCP Internal Medicine; Visit Provider Internal Medicine
DX: M54.50 Low back pain, unspecified (principal); Z85.46 Personal history of malignant neoplasm of prostate; R97.20 Elevated prostate specific antigen [PSA]; M43.06 Spondylolysis, lumbar region; M41.86 Other forms of scoliosis, lumbar region
CPT/HCPCS: 72100; 72170

== ENCOUNTER 2023-03-13 06:58 | Outpatient (CLI) | payer MEDICARE, SELFPAY ==
[2023-03-13 07:12] LABS: Basophils Absolute Auto 0.04 K/mm3 (0.00-0.10); Basophils Percent Auto 0.7 % (0.0-1.0); Eosinophils Percent Auto 3.5 % (1.0-6.0); Hemoglobin 14.5 g/dL (12.4-15.3); Immature Granulocyte Absolute 0.01 K/mm3 (0.00-0.00); Immature Granulocyte Percent A 0.2 % (0.0-0.0); Lymphocytes Absolute Auto 1.39 K/mm3 (1.10-4.50); Lymphocytes Percent Auto 24.1 % (18.0-42.0); Mean Corpuscular HGB Conc 33.7 g/dL (32.0-36.0); Mean Corpuscular Hemoglobin 32.4 pg (27.0-31.0); Mean Platelet Volume 8.7 fl (8.7-11.0); Monocytes Absolute Auto 0.66 K/mm3 (0.10-0.90); Monocytes Percent Auto 11.5 % (2.0-11.0); Neutrophils Absolute Auto 3.5 K/mm3 (1.7-7.2); Platelet Count Result 142 K/mm3 (150-420); Red Blood Count 4.48 M/mm3 (4.70-6.10); Red Cell Distribution Width 12.8 % (11.6-14.4); White Blood Count 5.8 K/mm3 (4.8-10.8)
[2023-03-13 07:15] LABS: Appearance Urine Slightly Cloudy (Clear); Bilirubin Urine Negative (Negative); Blood Urine Trace-Intact (Negative); Color Urine Light Yellow (Yellow); Glucose Urine UA Negative (Negative); Ketones Urine Negative (Negative); Leukocyte Esterase Ur 3+ (Negative); Nitrate Urine Negative (Negative); Protein Urine Negative (Negative); Urobilinogen Urine 0.2 mg/dL (0.2-1.0)
[2023-03-13 07:22] LABS: Add Urine Microscopic? YES; RBC Urine None seen /hpf (0-2)
[2023-03-13 07:23] LABS: Bacteria Urine Rare /hpf; Squamous Epithelial Cell Urine Occasional /hpf (Few)
[2023-03-13 08:06] LABS: Alanine Aminotransferase 20 U/L (16-63); Albumin Level 3.4 g/dL (3.4-5.0); Alkaline Phosphatase 102 U/L (46-116); Anion Gap 8 mmol/L (8-16); Aspartate Amino Transferase 17 U/L (15-37); Bilirubin,Total 0.5 mg/dL (0.00-1.00); Blood Urea Nitrogen 10 mg/dL (7-18); Carbon Dioxide 29 mmol/L (21-32); Chloride 97 mmol/L (98-108); Estimated Glomerular Filt Rate > 60; Ferritin 105 ng/mL (26-388); Glucose 97 mg/dL (70-99); Iron 99 ug/dL (65-175); Osmolality Calculated 277 mOsm/kg (285-295); Potassium 4.2 mmol/L (3.5-5.1); Sodium 134 mmol/L (136-145); Total Protein 6.5 g/dL (6.4-8.2)
== END 2023-03-13 06:59 | disposition home or self-care (01) ==
LOC: CHSLAB 07:00
PROVIDERS: PCP Internal Medicine; Visit Provider Internal Medicine
DX: R73.01 Impaired fasting glucose (principal); D50.9 Iron deficiency anemia, unspecified; I10 Essential (primary) hypertension; E87.1 Hypo-osmolality and hyponatremia
CPT/HCPCS: 36415; 80053; 81001; 82728; 83540; 85025

== ENCOUNTER 2023-09-11 06:52 | Outpatient (CLI) | payer MEDICARE, SELFPAY ==
[2023-09-11 07:06] LABS: Appearance Urine Sl Cloudy (Clear); Basophils Absolute Auto 0.04 K/mm3 (0.00-0.10); Basophils Percent Auto 0.7 % (0.0-1.0); Bilirubin Urine Negative (Negative); Blood Urine Trace-intact (Negative); Color Urine Light Yellow (Yellow); Eosinophils Absolute Auto 0.26 K/mm3 (0.02-0.50); Eosinophils Percent Auto 4.3 % (1.0-6.0); Glucose Urine UA Negative (Negative); Hematocrit 41.6 % (37.0-46.0); Hemoglobin 14.1 g/dL (12.4-15.3); Immature Granulocyte Absolute 0.02 K/mm3 (0.00-0.00); Immature Granulocyte Percent A 0.3 % (0.0-0.0); Ketones Urine Negative (Negative); Leukocyte Esterase Ur 3+ LEU/UL (Negative); Lymphocytes Absolute Auto 1.24 K/mm3 (1.10-4.50); Lymphocytes Percent Auto 20.6 % (18.0-42.0); Mean Corpuscular HGB Conc 33.9 g/dL (32-36); Mean Corpuscular Hemoglobin 32.6 pg (27.0-31.0); Mean Corpuscular Volume 96.3 fL (78.0-102.0); Mean Platelet Volume 8.8 fl (8.7-11.0); Monocytes Absolute Auto 0.67 K/mm3 (0.10-0.90); Monocytes Percent Auto 11.1 % (2.0-11.0); Neutrophils Absolute Auto 3.79 K/mm3 (1.70-7.20); Nitrate Urine Negative (Negative); Platelet Count Result 137 K/mm3 (150-420); Protein Urine Negative (Negative); Red Blood Count 4.32 M/mm3 (4.70-6.10); Red Cell Distribution Width 12.5 % (11.6-14.4); Urobilinogen Urine 0.2 mg/dL (0.2-1.0)
[2023-09-11 07:14] LABS: Hemoglobin A1C 5.4 % (<5.7)
[2023-09-11 07:32] LABS: Add Urine Microscopic? YES; RBC Urine None seen /hpf (0-2)
[2023-09-11 07:33] LABS: Bacteria Urine Trace /hpf; WBC Urine 21-30 /hpf (0-3)
[2023-09-11 08:34] LABS: Alanine Aminotransferase 20 U/L (16-63); Albumin Level 3.6 g/dL (3.4-5.0); Alkaline Phosphatase 100 U/L (46-116); Anion Gap 6 mmol/L (4-12); Aspartate Amino Transferase 15 U/L (15-37); Bilirubin,Total 0.8 mg/dL (0.00-1.00); Blood Urea Nitrogen 13 mg/dL (7-18); Calcium 9.2 mg/dL (8.5-10.1); Carbon Dioxide 33 mmol/L (21-32); Chloride 97 mmol/L (98-108); Cholesterol 114 mg/dL (0-200); Creatine Kinase 59 U/L (39-308); Estimated Glomerular Filt Rate > 60; Free T4 Free Thyroxine 1.04 ng/dL (0.76-1.46); Glucose 94 mg/dL (70-99); HDL Direct 69 mg/dL (40-60); LDL Cholesterol Calculated 41 mg/dL (<130); NT Pro B Type Natriuretic Pept 272 pg/mL (0-450); Osmolality Calculated 282 mOsm/kg (285-295); Potassium 4.4 mmol/L (3.5-5.1); Sodium 136 mmol/L (136-145); Thyroid Stimulating Hormone 1.25 uIU/mL (0.36-3.74); Total Protein 6.6 g/dL (6.4-8.2); Triglycerides < 22 mg/dL (0-150); Vitamin B12 635 pg/mL (193-986)
== END 2023-09-11 06:53 | disposition home or self-care (01) ==
LOC: CHSLAB 06:54
PROVIDERS: PCP Internal Medicine; Visit Provider Internal Medicine
DX: R73.01 Impaired fasting glucose (principal); I10 Essential (primary) hypertension; G31.84 Mild cognitive impairment of uncertain or unknown etiology; C61 Malignant neoplasm of prostate; E87.1 Hypo-osmolality and hyponatremia; E03.4 Atrophy of thyroid (acquired); N39.0 Urinary tract infection, site not specified; I50.9 Heart failure, unspecified
CPT/HCPCS: 36415; 80053; 80061; 81001; 82550; 82607; 83036; 83880; 84439; 84443; 85025; 87086; 87181

== ENCOUNTER 2024-03-14 07:06 | Outpatient (CLI) | payer MEDICARE, SELFPAY ==
[2024-03-14 07:34] LABS: Add Urine Microscopic? YES; Basophils Absolute Auto 0.06 K/mm3 (0.00-0.10); Basophils Percent Auto 0.7 % (0.0-1.0); Bilirubin Urine Negative (Negative); Blood Urine Negative (Negative); Color Urine Light Yellow (Yellow); Eosinophils Absolute Auto 0.22 K/mm3 (0.02-0.50); Eosinophils Percent Auto 2.7 % (1.0-6.0); Glucose Urine UA Negative (Negative); Hematocrit 40.2 % (37.0-46.0); Immature Granulocyte Absolute 0.03 K/mm3 (0.00-0.00); Immature Granulocyte Percent A 0.4 % (0.0-0.0); Ketones Urine Negative (Negative); Leukocyte Esterase Ur 3+ LEU/UL (Negative); Lymphocytes Absolute Auto 1.24 K/mm3 (1.10-4.50); Lymphocytes Percent Auto 15.1 % (18.0-42.0); Mean Corpuscular HGB Conc 34.8 g/dL (32-36); Mean Corpuscular Hemoglobin 32.6 pg (27.0-31.0); Mean Corpuscular Volume 93.5 fL (78.0-102.0); Mean Platelet Volume 8.8 fl (8.7-11.0); Monocytes Absolute Auto 0.81 K/mm3 (0.10-0.90); Monocytes Percent Auto 9.9 % (2.0-11.0); Neutrophils Absolute Auto 5.85 K/mm3 (1.70-7.20); Neutrophils Percent Auto 71.2 % (50.0-70.0); Nitrate Urine Negative (Negative); Platelet Count Result 149 K/mm3 (150-420); Protein Urine Negative (Negative); Red Cell Distribution Width 12.9 % (11.6-14.4); Urobilinogen Urine 0.2 mg/dL (0.2-1.0); White Blood Count 8.2 K/mm3 (4.8-10.8)
[2024-03-14 07:37] LABS: Appearance Urine Sl Cloudy (Clear)
[2024-03-14 07:42] LABS: RBC Urine None seen /hpf (0-2); WBC Clumps Urine Present /hpf; WBC Urine 21-30 /hpf (0-3)
[2024-03-14 07:43] LABS: Bacteria Urine Trace /hpf
[2024-03-14 07:56] LABS: Hemoglobin A1C 5.6 % (<5.7)
[2024-03-14 08:33] LABS: Alanine Aminotransferase 24 U/L (16-63); Albumin Level 3.5 g/dL (3.4-5.0); Alkaline Phosphatase 96 U/L (46-116); Anion Gap 7 mmol/L (4-12); Aspartate Amino Transferase 19 U/L (15-37); Bilirubin,Total 0.7 mg/dL (0.00-1.00); Blood Urea Nitrogen 12 mg/dL (7-18); Calcium 9.1 mg/dL (8.5-10.1); Carbon Dioxide 30 mmol/L (21-32); Chloride 99 mmol/L (98-108); Cholesterol 125 mg/dL (0-200); Creatine Kinase 56 U/L (39-308); Estimated Glomerular Filt Rate > 60; Ferritin 141 ng/mL (26-388); Free T3 2.11 pg/mL (2.18-3.98); Free T4 Free Thyroxine 0.99 ng/dL (0.76-1.46); Glucose 94 mg/dL (70-99); HDL Direct 66 mg/dL (40-60); Iron 92 ug/dL (65-175); LDL Cholesterol Calculated 54 mg/dL (<130); NT Pro B Type Natriuretic Pept 252 pg/mL (0-450); Osmolality Calculated 281 mOsm/kg (285-295); Potassium 4.3 mmol/L (3.5-5.1); Sodium 136 mmol/L (136-145); Thyroid Stimulating Hormone 1.08 uIU/mL (0.36-3.74); Total Protein 6.6 g/dL (6.4-8.2); Triglycerides 27 mg/dL (0-150)
[2024-03-14 15:17] LABS: Vitamin B12 564 pg/mL (193-986)
== END 2024-03-14 07:07 | disposition home or self-care (01) ==
LOC: CHSLAB 07:11
PROVIDERS: PCP Internal Medicine; Visit Provider Internal Medicine
DX: I10 Essential (primary) hypertension (principal); I25.10 Atherosclerotic heart disease of native coronary artery without angina pectoris; R73.01 Impaired fasting glucose; D50.9 Iron deficiency anemia, unspecified; E87.1 Hypo-osmolality and hyponatremia; E78.2 Mixed hyperlipidemia; G31.84 Mild cognitive impairment of uncertain or unknown etiology; I50.9 Heart failure, unspecified; R82.90 Unspecified abnormal findings in urine
CPT/HCPCS: 36415; 80053; 80061; 81001; 82550; 82607; 82728; 83036; 83540; 83880; 84439; 84443; 84481; 85025; 87086; 87181

== ENCOUNTER 2024-07-09 09:35 | Outpatient (CLI) | payer MEDICARE, OTHER, SELFPAY | END 2024-07-09 09:36 | disposition home or self-care (01) | LOC: ANHNEURO 09:37 | PROVIDERS: PCP Internal Medicine; Visit Provider Internal Medicine | DX: G56.02 Carpal tunnel syndrome, left upper limb (principal) | CPT/HCPCS: 95886; 95909 ==

== ENCOUNTER 2024-08-13 11:48 | Outpatient (CLI) | payer MEDICARE, OTHER, SELFPAY ==
--- NOTE | 2024-08-13 11:54 | ECHO_ITS ---
Patient Info Name: Yaw Polanco Age: 88 years : 1935 Gender: Male Ht: 72 in Wt: 210 lbs BSA: 2.22 m2 HR: 70 bpm BP: 121 / 65 mmHg Heart Rhythm: Sinus Rhythm Technical Quality: Fair Exam Date: 08/13/2024 11:09 AM Exam Location: [facility] Patient Status: Outpatient Admit Date: 08/13/2024 Staff Ordering Physician: Theodore Currie MD Auto Parker: Chata Alexandre RDCS Attending Provider: Theodore Currie MD Referring Physician: Rosey DALAL; Exam Type: CA echo doppler color flow Study Info Indications - CAD, Aortic valve stenosis Complete two-dimensional, color flow and Doppler transthoracic echocardiogram is performed. Summary 1. Complete two-dimensional, color flow and Doppler transthoracic echocardiogram is performed. 2. Left ventricular chamber dimension is normal. 3. Left ventricular systolic function is normal, estimated at 65-70%. 4. There is mild concentric increased left ventricular wall thickness. 5. The left ventricular diastolic function is abnormal. 6. E/e' 16 is elevated. 7. Left atrial chamber dimension is moderately enlarged. 8. Right atrial chamber dimension is moderately enlarged. 9. There is moderate aortic valve sclerosis. 10. There is mild aortic valve stenosis with a peak velocity of 258 cm/s, and aortic valve area of 1.6 cm2. 11. There is trace aortic valve regurgitation. 12. The mitral valve has mildly calcified annulus. 13. There is trace mitral valve regurgitation. 14. There is trace tricuspid valve regurgitation. 15. No pulmonary hypertension, estimated pulmonary arterial systolic pressure is 37 mmHg. 16. Dilated inferior vena cava with >50% collapse upon inspiration consistent with elevated right atrial pressure, 10 mmHg. Left Ventricle E/e' 16 is elevated. Left ventricular chamber dimension is normal. Left ventricular systolic function is normal, estimated at 65-70%. There is mild concentric increased left ventricular wall thickness. The left ventricular diastolic function is abnormal. Right Ventricle Right ventricular systolic function is normal and with normal TAPSE 2.1 cm. Right ventricular chamber dimension is normal. Left Atria Left atrial chamber dimension is moderately enlarged. Right Atria Right atrial chamber dimension is moderately enlarged. Aortic Valve There is mild aortic valve stenosis with a peak velocity of 258 cm/s, and aortic valve area of 1.6 cm2. The aortic valve is trileaflet. There is moderate aortic valve sclerosis. There is trace aortic valve regurgitation. Pulmonic Valve There is no pulmonic regurgitation. Mitral Valve The mitral valve has mildly calcified annulus. There is no mitral valve stenosis. There is trace mitral valve regurgitation. Tricuspid Valve There is trace tricuspid valve regurgitation. No pulmonary hypertension, estimated pulmonary arterial systolic pressure is 37 mmHg. Pericardium/Pleural There is no pericardial effusion. Inferior Vena Cava Dilated inferior vena cava with >50% collapse upon inspiration consistent with elevated right atrial pressure, 10 mmHg. Aorta The aortic root size at the sinus of Valsalva is normal. Left Ventricular Outflow Tract Name Value Normal LVOT 2D LVOT Diameter 2.3 cm LVOT Doppler LVOT Peak Velocity 106 cm/s LVOT Peak Gradient 4 mmHg LVOT Mean Gradient 0 mmHg LVOT VTI 27 cm LVOT VTI/AV VTI Ratio 0.4 LVOT Stroke Volume 109 ml Pulmonic Valve Name Value Normal RVOT Doppler RVOT Peak Gradient 1 mmHg PV Doppler PV Peak Velocity 118 cm/s PV Peak Gradient 6 mmHg Mitral Valve Name Value Normal MV Doppler MV Decel Stark 455 cm/s2 MV PHT 63 ms MV Area (PHT) 3.5 cm2 4.0-5.0 MV Diastolic Function MV E Peak Velocity 99 cm/s MV A Peak Velocity 96 cm/s MV E/A 1.0 MV Decel Time 217 ms Tricuspid Valve Name Value Normal TV Regurgitation Doppler TR Peak Velocity 259 cm/s TR Peak Gradient 27 mmHg Estimated PAP/RSVP RA Pressure 10 mmHg <=5 PA Systolic Pressure 37 mmHg <36 RV Systolic Pressure 37 mmHg <36 Aortic Valve Name Value Normal AV Doppler AV Peak Velocity 258 cm/s AV Peak Gradient 27 mmHg AV Mean Gradient 0 mmHg AV VTI 67 cm AV Area (Cont Eq VTI) 1.6 cm2 >=3.0 AV Area (Cont Eq Jorge A) 1.7 cm2 AV V1/V2 Ratio 0.41 AV Regurgitation 2D LVOT Area 4.0 cm2 Ventricles Name Value Normal LV Dimensions 2D/MM IVS Diastolic Thickness (2D) 1.2 cm 0.6-1.0 LVID Diastole (2D) 4.0 cm 4.2-5.8 LVIW Diastolic Thickness (2D) 1.0 cm 0.6-1.0 LVID Systole (2D) 2.6 cm 2.5-4.0 LVOT Diameter 2.3 cm LV Mass (2D Cubed) 148.57 g 88.00-224.00 LV Mass Index (2D Cubed) 67 g/m2 49-115 Relative Wall Thickness (2D) 0.52 LV Fractional Shortening/Ejection Fraction 2D/MM LV Fractional Shortening (2D) 35 % 25-43 LV EF (2D Teicholz) 65 % 52-72 LV Diastolic Volume (4C MOD) 164 ml LV EF (4C MOD) 62 % LV Diastolic Volume (2C MOD) 161 ml LV EF (2C MOD) 80 % LV Diastolic Volume (BP MOD) 167 ml 62-150 LV Diastolic Volume Index (BP MOD) 75 ml/m2 34-74 LV Systolic Volume (BP MOD) 46 ml 21-61 LV Systolic Volume Index (BP MOD) 21 ml/m2 11-31 LV EF (BP MOD) 73 % 52-72 LV Diastolic Length (4C) 8.9 cm LV Systolic Length (4C) 6.7 cm LV Stroke Volume (4C MOD) 101 ml Atria Name Value Normal LA Dimensions LA Volume (4C A-L) 77 ml LA Volume (BP A-L) 86 ml RA Dimensions RA Area (4C) 23.6 cm2 <=18.0 Report Signatures
--- OUTSIDE RECORDS SUMMARY | 2024-08-13 13:15 | XMS_ITS | Clinical Summary ---
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 Immunizations Name Administration Dates Next Due Influenza TIV (IM) 01/20/2021 Pneumococcal Conjugate 01/06/2019 Social History Tobacco Use Types Packs/Day Years Used Date Smoking Tobacco: Never Smokeless Tobacco: Never Alcohol Use Standard Drinks/Week Comments Not Currently 0 (1 standard drink = 0.6 oz pur e alcohol) Sex and Gender Information Value Date Recorded Sex Assigned at Not on file Gender Identity Not on file Sexual Orientation Not on file Last Filed Vital Signs Vital Sign Reading Time Taken Comments Blood Pressure 122/70 02/08/2021 1:55 PM CDT Pulse 72 02/08/2021 1:55 PM CDT Temperature 35.5 C (95.9 F) 02/08/2021 1:55 PM CDT Respiratory Rate - - Oxygen Saturation - - Inhaled Oxygen Concentration - - Weight 105 kg (232 lb) 02/08/2021 1:55 PM CDT Height 182.9 cm (6') 02/08/2021 1:55 PM CDT Body Mass Index 31.46 02/08/2021 1:55 PM CDT Plan of Treatment Health Maintenance Due Date Last Done Comments Pneumococcal PPSV23/PCV13 65 + Years / Low and Medium Risk (1 of 4 - PCV) 2002 Influenza Vaccine (Season Ended) 2025 01/21/20 21 [employer] Mobile Developer Relationship Specialty Start Date End Date Edith Xie MD [address] [place] [id number] PCP - General Internal Medicine 09/09/20
--- OUTSIDE RECORDS SUMMARY | 2024-08-13 13:15 | XMS_ITS | Encounter Summary ---
Author Organization [facility] Address [address] [place] [address] Phone Care Team Providers Care Internet Marketing Executive Name Role Phone Edith Xie MD Primary Care Provider + [phone] Himanshu Llamas MD Unavailable [phone] Jeffrey Taylor MD Unavailable [phone] Reason for Visit * Diagnostic Imaging (Routine) - Closed Specialty Diagnoses / Procedures Referred By Contac t Referred To Contact Diagnoses Carotid artery stenosis, symptomatic, right Procedures US Carotids Dup[place] [id number] [place] [address] [address] [address] Phone: tel: fax: [facility] (All Locations) Referral ID Status Reason Start Date Expiration Date Visits Re quested Visits Authorized [id number] Closed 08/07/2023 09/05/2024 1 1 Encounter Details Date Type Department Care Team (Latest Contact Info) Description 08/12/2024 1:45 PM CDT Ancillary Procedure [facility] Vascular Lab [address] [facility] Medical Office Building [address] [place] [address] Carotid artery stenosis, symptomatic, right Social History Tobacco Use Types Packs/Day Years Used Date Smoking Tobacco: Former Pipe Smokeless Tobacco: Never Comments:quit 25 + years ago AUDIT-C Answer Date Recorded Q1: How often do you have a drink containing alc ohol? Never 09/09/2021 Average Number of Drinks Not on file 022 Q3: How often do you have si x or more drinks on one occasion? 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 Gender Identity Not on file Sexual Orientation Not on file documented as of this encounter Plan of Treatment Pending Results Name Type Priority Associated Diagnoses Date /Time US Carotids Duplex Bilateral Imaging Schedule Routine, Read Routine (OP Routine) Carotid artery stenosis, symptomatic, right 08/12/2024 1:46 PM CDT documented as of this encounter Procedures Procedure Name Priority Date/Time Associated Diagnosis Comments US CAROTIDS DUPLEX BILATERAL Schedule Routine, Read Routine (OP Routine) 08/12/2024 1:46 PM CDT Carotid artery stenosis, symptomatic, right Procedure Note - 08/12/2024 1:46 PM CDTThis note is in progress. [facility] - Department of Vascular Surgery,Vascular Laboratory [address] [place] [address] Carotid Duplex Ultrasound Report Preliminary Patient Name: YAW POLANCO : 1935 (88y 8m) Study Date: 08/12/2024 1:25:40 PM Gender: M Tech: Location: [facility] Ref Provider: SARBJIT VACA Quality: Adequate Order Provider: SARBJIT VACA PROCEDURES: Carotid Report: Carotid duplex examination of the extracranial arterieswas performed using 2D, color and spectral Doppler. INDICATIONS: I65.21 Occlusion and stenosis of right carotid artery. MEASUREMENTS: Right Value Units Left ValueUnits RT Prox CCA PSV 90 cm/sec LT Prox CCA PSV 88cm/sec RT Prox CCA EDV 11 cm/sec LT Prox CCA EDV 14cm/sec RT Distal CCA PSV 62 cm/sec LT Distal CCA PSV 52cm/sec RT Distal CCA EDV 9 cm/sec LT Distal CCA EDV 14cm/sec RT Prox ICA PSV 36 cm/sec LT Prox ICA PSV 37cm/sec RT Prox ICA EDV 6 cm/sec LT Prox ICA EDV 11cm/sec RT Mid ICA PSV 43 cm/sec LT Mid ICA PSV 51cm/sec RT Mid ICA EDV 10 cm/sec LT Mid ICA EDV 15cm/sec RT Distal ICA PSV 52 cm/sec LT Distal ICA PSV 87cm/sec RT Distal ICA EDV 11 cm/sec LT Distal ICA EDV 26cm/sec RT ECA Prx PSV 103 cm/sec LT ECA Prx PSV 70cm/sec RT ICA/CCA 0.85 ratio LT ICA/CCA 1.69ratio RT VERT PSV 51 cm/sec LT VERT PSV 62cm/sec - FINDINGS: Performing Sawmill Hand: Vicky Tan RVT. Rt Common Carotid Artery: There is intimal thickening but no significantatherosclerotic plaque noted in the right common carotid artery. Rt Internal Carotid Artery: Duplex imaging of the right internal carotidartery is within normal limits without evidence for atherosclerotic disease. (stented). Rt External Carotid Artery: Patent right external carotid artery withevidence of atherosclerotic disease present. Rt Vertebral Artery: The right vertebral artery is patent with antegradeflow. Lt Common Carotid Artery: There is intimal thickening but no significantatherosclerotic plaque noted in the left common carotid artery. Lt Internal Carotid Artery: The plaque in the left internal carotid arteryappears to be heterogeneous, calcified and irregular. Atherosclerotic changes of theleft internal carotid artery without hemodynamically significant Doppler findings. <50%stenosis. Lt External Carotid Artery: Patent left external carotid artery withevidence of atherosclerotic disease present. Lt Vertebral Artery: The left vertebral artery is patent with antegradeflow. Comments: The stented right Internal Carotid Artery is patent andthroughout the stent a maximum peak systolic velocity 52 cm/sec, an end diastolic velocity of 11cm/sec, stented ICA/CCA ratio 0.85. CONCLUSIONS: 1. The stented right Internal Carotid Artery is patent and throughout thestent a maximum peak systolic velocity 52 cm/sec, an end diastolic velocity of 11 cm/sec,stented ICA/CCA ratio 0.85. 2. The left internal carotid artery disease is consistent with a less than50% stenosis. 3. No evidence of hemodynamically significant stenosis in the commoncarotid artery bilaterally. 4. Normal, antegrade flow is noted in bilateral vertebral arteries. HISTORY: Right transcervical carotid stent 07/15/21 CVA, HTN, CAD, CABG, HLD, AF, Former smoker. PREVIOUS STUDIES: Previous carotid ultrasound on 08/07/23 <50 bilat; patent stent Rt ICA; Antverts bilat. DISCLAIMER: The study images and the final report will be retained in the patientchart by the Vascular Laboratory for the legally required time period. This chartconstitutes the legal record of any testing performed. ATTESTATION: Electronically Signed By: 08/12/2024 1:40:06 PM CDT documented in this encounter Visit Diagnoses Diagnosis Carotid artery stenosis, symptomatic, right documented in this encounter Care Teams Internet Marketing Executive Relationship Specialty Start Date End Date Edith Xie MD [address] [place] [address] PCP - General Internal Medicine 04/27/20 [place] [address] [place] [address] Surgeon Cardiothoracic Surgery 08/19/21 Jeffrey Taylor MD [address] [facility] [address] [place] [address] Consulting Physician Cardiology 08/07/23 documented as of this encounter
--- OUTSIDE RECORDS SUMMARY | 2024-08-13 13:15 | XMS_ITS | Clinical Summary ---
Author Organization [address] Address [address] [place] [address] Care Team Providers Care Trimmer And Reinforcer Name Role Phone Edith Xie MD Primary Care Provider + [phone] Himanshu Llamas MD Unavailable [phone] Jeffrey Taylor MD Unavailable [phone] Allergies Active Allergy Reactions Criticality Noted Date Comments Jimmy Inhibitors Unknown 05/12/2021 Oxycodone Nausea only Low 06/29/2021 Venom-Honey Bee Swelling High 06/29/2021 Yellow Jacket Medications acetaminophen (TYLENOL) 500 mg tabletIndicatio ns:Neck pain, acute,Acute pain of both shoulders Take 2 tablets (1,000 mg total) by mouth 3 (three) times a day as needed for pain 2 Active docusate sodium (COLACE) 100 mg capsuleIndicati ons:constipatio n Take 2 capsules (200 mg total) by mouth as needed Active multivitamin capsuleIndicati ons:Vitamin Deficiency Prevention Take 1 capsule by mouth every morning Active aspirin 81 mg enteric coated tablet Take 1 tablet (81 mg total) by mouth daily Active tamsulosin (FLOMAX) 0.4 mg extended release capsule Take 1 capsule (0.4 mg total) by mouth daily after dinner 2 Active Linzess 72 mcg capsule 3 Active sodium chloride 1 gram tablet Take 2 tablets (2 g total) by mouth daily Active Bifidobacterium infantis (ALIGN) 4 mg capsule Take 1 capsule (4 mg total) by mouth daily Active cetirizine (ZyrTEC) 10 mg capsule Take 1 tablet by mouth as needed Active atorvastatin (LIPITOR) 40 mg tabletIndicatio ns:Coronary artery disease involving assiniboine and gros ventre tribes coronary artery of assiniboine and gros ventre tribes heart without angina pectoris TAKE ONE TABLET BY MOUTH DAILY 90 tablet 3 4 Active Additional Information Patient taking differently: 20 mg oral Daily, Reported on 08/12/2024 metoprolol tartrate (LOPRESSOR) 25 mg immediate release tablet TAKE HALF A TABLET BY MOUTH TWICE A DAY 90 tablet 1 4 Active Active Problems Problem Noted Date Diagnosed Date Essential hypertension 07/22/2024 Hx of CABG 10/26/2021 History of common carotid artery stent placement 10/26/2021 Hypercholesteremia 10/26/2021 History of atrial fibrillation 10/26/2021 Urinary retention 07/16/2021 Assessment & Plan (07/16/2021 4:10 PM PRE BILLING SPECIALIST): Postoperative urinary retention, failed 2 void trials - Martinez catheter replace - FU with his Urologist, Dr. Flavio Stephens on Wednesday 07/19. Coronary artery disease invo lving assiniboine and gros ventre tribes coronary artery of assiniboine and gros ventre tribes heart without angina pectoris 06/22/2021 Overview (06/22/2021): Added automatically from request for surgery [id number] Assessment & Plan (07/15/2021 4:03 PM PRE BILLING SPECIALIST): During routine cardiac work up found to have severe coronary disease. - Followed by cardiac surgery. Will undergo CABG 1 month following TCAR due to need for Plavix. - Monitor for chest pian, oxygen requirements. Monitor telemetry. - Continue aspirin and statin. - Restart metoprolol if BP and HR allows following carotid intervention. Paroxysmal ventricular tachycardia 05/12/2021 H/O: stroke 05/12/2021 Aortic valve stenosis, nonrheumatic 05/12/2021 Resolved Problems Problem Noted Date Diagnosed Date Resolved Date Dizziness 05/12/2021 10/26/2021 Carotid stenosis, right 05/12/2021 06/2 05/2021 Assessment & Plan (07/15/2021 4:01 PM PRE BILLING SPECIALIST): Patient with episode of right hemispheric TIA causing left leg weakness, found to have right carotid artery stenosis. - OR 07/15 for Right TCAR. - Continue aspirin and Plavix X1 month prior to holding Plavix for CABG. - Admit for close NV monitoring. - Use nicardipine or Phenylphrine if blood pressure not within goal. - Advance diet as tolerated. - Remove martinez in AM. - Continue statin. Chronic maxillary sinusitis 05/28/2020 10/26/2021 Chronic pansinusitis 05/12/2020 022 Encounters Date Type Department Care Team Description 08/12/2024 2:30 PM CDT Office Visit [facility] Surgery [address] [facility] Medical Office Building [address] [phone] Sarbjit Vaca MD Carotid artery stenosis, symptomatic, right 08/12/2024 1:45 PM CDT Ancillary Procedure [facility] Vascular Lab [address] [facility] Medical Office Building [address] [place] [address] Carotid artery stenosis, symptomatic, right 07/22/2024 11:00 AM CDT Office Visit [facility] Medical Group Cardiology [address] [place] [address] Theodore Currie MD Hx of CABG (Primary Dx); Coronary artery disease involving assiniboine and gros ventre tribes coronary artery of assiniboine and gros ventre tribes heart without angina pectoris; Aortic valve stenosis, nonrheumatic; Paroxysmal ventricular tachycardia (HCC); History of common carotid artery stent placement; Essential hypertension from Last 3 Months Surgical History Surgery Date Site/Laterality Comments SHOULDER SURGERY Right BACK SURGERY lumbar decompression CATARACT EXTRACTION Right HIP SURGERY Right KNEE ARTHROPLASTY Left CAROTID ARTERY ANGIOPLASTY Right Medical History Medical History Date Comments Allergic rhinitis Hypertension Sinusitis Neoplasm of prostate brachy naz mark Hx of colonic polyps Coronary artery disease GERD (gastroesophageal reflux disease) Sleep apnea CVA (cerebral vascular accident) (HCC) 04/2021 Vertigo improved since e liquis discontinued Hematuria resolved by hold ing plavix Family History Medical History Relation Name Comments aortic valve repleacment Brother 1 Prostate cancer Brother 2 COD Prostate cancer Father Heart disease Mother age 86 Stroke Mother Relation Name Status Comments Brother 1 Alive Brother 2 Father (Age 90) Mother (Age 86) Social History Tobacco Use Types Packs/Day Years Used Date Smoking Tobacco: Former Pipe Smokeless Tobacco: Never Tobacco Cessation:Counseling Given: Not Answered Comments:quit 25 + years ago AUDIT-C Answer [...] on file Legal Sex Male 2:26 AM PRE BILLING SPECIALIST Gender Identity Not on file Sexual Orientation Not on file Obstetrics History Last Filed Vital Signs Vital Sign Reading Time Taken Comments Blood Pressure 112/71 08/12/2024 1:42 PM CDT Pulse 64 08/12/2024 1:42 PM CDT Temperature 36.5 C (97.7 F) 08/12/2024 1:42 PM CDT Respiratory Rate 16 09/16/2021 7:00 AM CDT Oxygen Saturation 98% 08/12/2024 1:42 PM CDT Inhaled Oxygen Concentration - - Weight 97.3 kg (214 lb 6.4 oz) 08/12/2024 1:42 P M CDT Height 182.9 cm (6') 08/12/2024 1:42 PM CDT Body Mass Index 29.08 08/12/2024 1:42 PM CDT Plan of Treatment Health Maintenance Due Date Last Done Comments Depression Screening 1935 Hepatitis B Screening 11[birth year]29/1953 Zoster Vaccine (1 of 2) 11/29/1987 Well Visit 65+ 2002 Fall Risk Assessment 09/16/2022 09/16/2021 Covid-19 Vaccine (4 - 2023-2 5 season) 2024 04/08/2021, 07/01/2020, 06/10/2020 DTaP/Tdap/Td Vaccine (2 - Td or Tdap) 12/22/2024 12/22/2014, 02/28/1995 Influenza Vaccine (Season Ended) 2025 01/20/2021, 01/07/2021, 02/15/2019, Additional history exists Pneumococcal vaccine 65+ Completed 019, 03/19/2015, 03/04/2011 Medical Devices Implanted Type Area Movie Shot Camera Operator Device Identifier Shelf Expiration Date Model / Serial / Lot [employer] Sr-0940-Cs Enroute Uber Flex 9mm .078in 40mm 57cm Delivery System Angle Tip - [id number] Implanted:Qty: 1 on 07/15/2021 by Sarbjit Vaca MD at [facility] Right: Carotid [employer] [id number] 08/06/2023 SR-0940-C S / / [id number] [facility] 24-023- Drill-Free Maxdrive Threadlock Ts 2.3mm 17mm Self Retaining - [id number] Implanted:Qty: 6 on 09/09/2021 by Himanshu Llamas MD at [facility] N/A: Sternum [facility] 24-023-17 - / / [facility] 025-42 Plate Bone Titanium Football H1.8mm Sternal 6 Hole Lock Level 1 Nonsterile 2.3mm Screw Midline Mini Valve Sternotomy - [id number] Implanted:Qty: 1 on 09/09/2021 by Himanshu Llamas MD at [facility] N/A: Sternum [facility] 24-025-42 - / / Procedures Procedure Name Priority Date/Time Associated Diagnosis Comments US CAROTIDS DUPLEX BILATERAL Schedule Routine, Read Routine (OP Routine) 08/12/2024 1:46 PM CDT Carotid artery stenosis, symptomatic, right Procedure Note - 08/12/2024 1:46 PM CDTThis note is in progress. [facility] - Department of Vascular Surgery,Vascular Laboratory [address] [place] [address] Carotid Duplex Ultrasound Report Preliminary Patient Name: YAW CHAUDHRY : 1935 (88y 8m) Study Date: 08/12/2024 1:25:40 PM Gender: M Tech: [facility] Ref Provider: SARBJIT VACA Quality: Adequate [...] LT VERT PSV 62cm/sec - FINDINGS: Performing Leathersmith: Vicky Tan RVT. Rt Common Carotid Artery: [...] Electronically Signed By: 08/12/2024 1:40:06 PM CDT from Last 3 Months Insurance MEDICARE [employer] [place] [address] MEDICARE [place] [employer] MEDICARE [place] [employer] [place] Advance Directives For more information, please contact: [phone] * Full Code (Latest Code Status on File) Date Activated Date Inactivated Comments 09/09/2021 6:06 PM 09/16/2021 6:26 PM * Full Code Date Activated Date Inactivated Comments 07/15/2021 7:40 PM 07/16/2021 9:44 PM Care Teams Trimmer And Reinforcer Relationship Specialty Start Date End Date Edith Xie MD [address] [place] [address] PCP - General Internal Medicine 04/27/20 [place] [address] [facility] [address] [address] Surgeon Cardiothoracic Surgery 08/19/21 Jeffrey Taylor MD [address] [place] [id number] Consulting Physician Cardiology 08/07/23
--- OUTSIDE RECORDS SUMMARY | 2024-08-13 13:15 | XMS_ITS | Referral Summary ---
Author Organization [address] Address [address] [place] [address] Care Team Providers Care Asphalt Dauber Name Role Phone Edith Xie MD Primary Care Provider + [phone] Himanshu Llamas MD Unavailable [phone] Jeffrey Taylor MD Unavailable Encounters Date Type Department Care Team Description 08/12/2024 2:30 PM CDT Office Visit [facility] Surgery [address] [facility] Medical Office Building [address] [address] Sarbjit Vaca MD Carotid artery stenosis, symptomatic, right 08/12/2024 1:45 PM CDT Ancillary Procedure [facility] Vascular Lab [address] [facility] Medical Office Building [address] [address] Carotid artery stenosis, symptomatic, right 07/22/2024 11:00 AM CDT Office Visit [facility] Medical Group Cardiology [address] [facility] [address] [place] [address] Theodore Currie MD Hx of CABG (Primary Dx); Coronary artery disease involving tazlina coronary artery of tazlina heart without angina pectoris; Aortic valve stenosis, nonrheumatic; Paroxysmal ventricular tachycardia (HCC); History of common carotid artery stent placement; Essential hypertension from Last 3 Months Allergies Active Allergy Reactions Criticality Noted Date [...] 40 mg tabletIndicatio ns:Coronary artery disease involving tazlina coronary artery of tazlina heart without angina pectoris TAKE ONE TABLET [...] 07/16/2021 Assessment & Plan (07/16/2021 4:10 PM INTAKE COORDINATOR): Postoperative urinary retention, failed 2 void trials - Martinez catheter replace - FU with his Urologist, Dr. Flavio Stephens on Wednesday 07/19. Coronary artery disease invo lving tazlina coronary artery of tazlina heart without angina pectoris 06/22/2021 Overview (06/22/2021): Added automatically from request for surgery [id number] Assessment & Plan (07/15/2021 4:03 PM INTAKE COORDINATOR): During routine cardiac work up found to [...] Date Dizziness 05/12/2021 10/26/2021 Carotid stenosis, right 05/12/202110/07 Assessment & Plan (07/15/2021 4:01 PM INTAKE COORDINATOR): Patient with episode of right hemispheric TIA causing left leg weakness, found to have right carotid artery stenosis. - OR / for Right TCAR. - Continue aspirin and Plavix X1 month prior to holding Plavix for CABG. - Admit for close NV monitoring. - Use nicardipine or Phenylphrine if blood pressure not within goal. - Advance diet as tolerated. - Remove martinez in AM. - Continue statin. Chronic maxillary sinusitis 05/28/2020 10/26/2021 Chronic pansinusitis 05/12/2020 022 Social History Tobacco Use Types Packs/Day Years [...] on file Legal Sex Male 2:26 AM INTAKE COORDINATOR Gender Identity Not on file Sexual Orientation [...] 08/12/2024 1:42 PM CDT Plan of Treatment Not on file Medical Devices Implanted Type Area Photographic Equipment Technician Device Identifier Shelf Expiration Date Model / Serial / Lot [employer] Sr-0940-Cs Enroute Uber Flex 9mm .078in 40mm 57cm Delivery System Angle Tip - [id number] Implanted:Qty: 1 on 07/15/2021 by Sarbjit Vaca MD at [facility] Right: Carotid [employer] [id number] 08/06/2023 SR-0940-C S / / [id number] [facility] 24-023-17 Drill-Free Maxdrive Threadlock Ts 2.3mm 17mm Self Retaining - [id number] Implanted:Qty: 6 on 09/09/2021 by Himanshu Llamas MD at [facility] N/A: Sternum [facility] 24-023-17 -91 / / [facility] -025-42 Plate Bone [employer] Football H1.8mm Sternal 6 Hole Lock Level 1 Nonsterile 2.3mm Screw Midline Mini Valve Sternotomy - [id number] Implanted:Qty: 1 on 09/09/2021 by Himanshu Llamas MD at [facility] N/A: [facility] 24-025-42 -09 / / Procedures Procedure Name Priority Date/Time Associated Diagnosis Comments US CAROTIDS DUPLEX BILATERAL Schedule Routine, Read Routine (OP Routine) 08/12/2024 1:46 PM CDT Carotid artery stenosis, symptomatic, right Procedure Note - 08/12/2024 1:46 PM CDTThis note is in progress. [facility] - Department of Vascular Surgery,Vascular Laboratory [address] [place] [address] Carotid Duplex Ultrasound Report Preliminary Patient Name: YAW POLANCO : 1935 (88y 8m) Study Date: 08/12/2024 1:25:40 PM Gender: M Tech: Location: [facility] Ref Provider: SARBJIT VACA Quality: Adequate Order [...] LT VERT PSV 62cm/sec - FINDINGS: Performing Pottery Machine Operator: Vicky Tan RVT. Rt Common Carotid Artery: [...] CDT from Last 3 Months Insurance MEDICARE [facility] MEDICARE [facility] [place] [address] MEDICARE [facility] [place] [address] Advance Directives For more information, please contact: [phone] * Full Code (Latest Code Status on File) Date Activated Date Inactivated Comments 09/09/2021 6:06 PM 09/16/2021 6:26 PM * Full Code Date Activated Date Inactivated Comments 07/15/2021 7:40 PM 07/16/2021 9:44 PM Care Teams Asphalt Dauber Relationship Specialty Start Date End Date Edith Xie MD [address] [place] [address] PCP - General Internal Medicine 04/27/20 [place] [address] [facility] [address] [address] Surgeon Cardiothoracic Surgery 08/19/21 Jeffrey Taylor MD [address] [facility] [address] [place] [address] Consulting Physician Cardiology 08/07/23
--- OUTSIDE RECORDS SUMMARY | 2024-08-13 13:15 | XMS_ITS | CONTINUITY OF CARE DOCUMENT ---
Author Name januaryjanuary Address Unknown Organization [facility] Address [address] [place] [address] Phone [phone] Care Team Providers Care Event Marketing Specialist Name Role Phone Louie SAVAGE, Gloria Unavailable DONNA SAVAGE, LEXUS [place] Unavailable [phone] JONNATHAN SAVAGE, ELISSA Unavailable INSURANCE PROVIDERS Payer name Policy type / Coverage type [place] red constitution party ID [facility] Blue [facility] [id number] [place] [employer] Medicare [id number]
--- OUTSIDE RECORDS SUMMARY | 2024-08-13 13:15 | XMS_ITS | Encounter Summary ---
Author Organization [facility] Address [address] [place] [address] Phone Care Team Providers Care Operational Review Sergeant Name Role Phone Edith Xie MD Primary Care Provider + [phone] Himanshu Llamas MD Unavailable [phone] Jeffrey Taylor MD Unavailable [phone] Reason for Referral * Diagnostic Imaging (Routine) - Authorized Specialty Diagnoses / Procedures Referred By Kwabena eubanks Referred To Contact Diagnoses Carotid artery stenosis, symptomatic, right Procedures [place] [address] [address] [facility] 1 [facility] [address] [place] [address] Phone: tel: fax: [facility] (All Locations) Referral ID Status Reason Start Date Expiration Date V isits Requested Visits Authorized [id number] Authorized 08/12/2024 09/11/2025 1 1 Reason for Visit * Consultation (Routine) - Authorized Specialty Diagnoses / Procedures Referred By Kwabena eubanks Referred To Contact Vascular Surgery Diagnoses Carotid artery stenosis, symptomatic, right Edith Xie MD [address] [place] [address] Phone: tel: fax: [place] [address] [address], [place] [address] Phone: tel: fax: Referral ID Status Reason Start Date Expiration Date Visits Requested Visits Authorized [id number] Authorized Specialty Services Required 08/02/2024 09/01/2025 12 12 Encounter Details Date Type Department Care Team (Late st Contact Info) Description 08/12/2024 2:30 PM CDT Office Visit [facility] Surgery [id number] [place] [address] Medical Office Building [address] [place] [phone] [place] [address] [facility] [address] [address] Carotid artery stenosis, symptomatic, right Social History [...] on file 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 Gender Identity Not on file Sexual Orientation Not on file documented as of this encounter Last Filed Vital Signs Vital Sign Reading Time Taken Comments Blood Pressure 112/71 08/12/2024 1:42 PM CDT Pulse 64 08/12/2024 1:42 PM CDT Temperature 36.5 C (97.7 F) 08/12/2024 1:42 PM CDT Respiratory Rate - - Oxygen Saturation 98% 08/12/2024 1:42 PM CDT Inhaled Oxygen Concentration - - Weight 97.3 kg (214 lb 6.4 oz) 08/12/2024 1:42 P M CDT Height 182.9 cm (6') 08/12/2024 1:42 PM CDT Body Mass Index 29.08 08/12/2024 1:42 PM CDT documented in this encounter Patient Instructions * Patient Instructions* Sarbjit Roebrtson MD - 08/12/2024 2:30 PM CDT Carotid duplex documented in this encounter Progress Notes * Sarbjit Robertson MD - 08/12/2024 2:30 PM CDT Patient: Yaw Polanco Date of : 1935 Date of Service: 08/12/2024 Return Office Visit Consultation at the request of Edith Xie MD for an opinion regarding carotid artery disease. I have personally taken a history, examined the patient and determined the assessment and plan asoutlined below. CHIEF COMPLAINT: Carotid stenosis HISTORY OF PRESENT ILLNESS: Patient is a 88 y.o. male and has a history of coronary artery disease,HTN, sleep apnea, vertigo, and GERD who presents following right TCAR on 07/15/21 for symptomatic right hemispheric TIA causing left sided weakness. He continues on full dose aspirin and statin as Plavix caused hematuria. No TIA, stroke or amaurosis fugax since the last visit. Carotid duplex shows patent right carotid artery stent with less than 50% stenosis bilaterally. Past Medical History: Diagnosis Date Allergic rhinitis Coronary artery disease CVA (cerebral vascular accident) ([facility]) 04/2021 GERD (gastroesophageal reflux disease) Hematuria resolved by holding plavix Hx of colonic polyps Hypertension Neoplasm of prostate brachy surgery Sinusitis Sleep apnea Vertigo improved since eliquis discontinued Past Surgical History: Procedure Laterality Date BACK SURGERY lumbar decompression CAROTID ARTERY ANGIOPLASTY Right CATARACT EXTRACTION Right HIP SURGERY Right KNEE ARTHROPLASTY Left SHOULDER SURGERY Right Family History Problem Relation Age of Onset Heart disease Mother age 86 Stroke Mother Prostate cancer Father Other (aortic valve repleacment) Brother Prostate cancer Brother COD Social History Tobacco Use Smoking status: Former Types: Pipe Smokeless tobacco: Never Tobacco comments: quit 25 + years ago Substance and Sexual Activity Drug use: Not Currently Sexual activity: Defer Alcohol Use: Not At Risk (09/09/2021) AUDIT-C Frequency of Alcohol Consumption: Never Average Number of Drinks: Not on file Frequency of Binge Drinking: Never Allergies as of 08/12/2024 - Reviewed 08/12/2024 Allergen Reaction Noted Venom-honey bee Swelling 06/29/2021 Jimmy inhibitors Unknown 05/12/2021 Oxycodone Nausea only 06/29/2021 Current Outpatient Medications: acetaminophen (TYLENOL) 500 mg tablet, Take 2 tablets (1,000 mg total) by mouth 3 (three) times a day as needed for pain, Disp: , Rfl: aspirin 81 mg enteric coated tablet, Take 1 tablet (81 mg total) by mouth daily, Disp: , Rfl: atorvastatin (LIPITOR) 40 mg tablet, TAKE ONE TABLET BY MOUTH DAILY (Patient taking differently: Take 0.5 tablets (20 mg total) by mouth daily), Disp: 90 tablet, Rfl: 3 Bifidobacterium infantis (ALIGN) 4 mg capsule, Take 1 capsule (4 mg total) by mouth daily, Disp: , Rfl: cetirizine (ZyrTEC) 10 mg capsule, Take 1 tablet by mouth as needed, Disp: , Rfl: docusate sodium (COLACE) 100 mg capsule, Take 2 capsules (200 mg total) by mouth as needed, Disp: ,Rfl: metoprolol tartrate (LOPRESSOR) 25 mg immediate release tablet, TAKE HALF A TABLET BY MOUTH TWICE ADAY, Disp: 90 tablet, Rfl: 1 multivitamin capsule, Take 1 capsule by mouth every morning, Disp: , Rfl: sodium chloride 1 gram tablet, Take 2 tablets (2 g total) by mouth daily, Disp: , Rfl: tamsulosin (FLOMAX) 0.4 mg extended release capsule, Take 1 capsule (0.4 mg total) by mouth daily after dinner, Disp: , Rfl: Linzess 72 mcg capsule, , Disp: , Rfl: REVIEW OF SYSTEMS: The patient???s vascular health history form was reviewed and signed by me dated 08/12/2024 The form was scanned into Media. PHYSICAL EXAMINATION: VITAL SIGNS: Vitals BP 112/71 (BP Location: Left arm, Patient Position: Sitting) Pulse 64 Temp 36.5 ??C (97.7 ??F) (Temporal) Ht 182.9 cm (6') Wt 97.3 kg (214 lb 6.4 oz) SpO2 98% BMI 29.08 kg/m?? HENT: Normocephalic and atraumatic. Extraocular movements are intact. Moist mucus membranes. EYES: Pupils are equal and reactive to light bilaterally. NECK: Supple with no lymphadenopathy CHEST: Symmetric chest expansion with no accessory muscle usage HEART: Regular rate and rhythm. ABDOMEN: Soft, nontender, nondistended. VASCULAR: Palpable radial pulse, palpable common femoral artery pulses bilaterally. No bruit heard MUSCULOSKELETAL: Warm, well perfused NEURO: Grossly intact motor and sensory exam. SKIN: No visible rashes. No wounds noted. VASCULAR LABS: I personally reviewed the report and images of: CAROTID DUPLEX Patient Active Problem List Diagnosis Paroxysmal ventricular tachycardia (HCC) H/O: stroke Aortic valve stenosis, nonrheumatic Coronary artery disease involving [place] coronary artery of [place] heart without angina pectoris Urinary retention Hx of CABG History of common carotid artery stent placement Hypercholesteremia History of atrial fibrillation Essential hypertension ASSESSMENT/PLAN: Yaw Polanco is a 88 y.o. male patient with high-grade symptomatic right carotid artery stenosiswith right hemispheric TIA causing left leg weakness in setting of baseline significant coronary artery disease. He is now s/p right TCAR on 07/15/21. - Prior to surgery, he had an episode of right hemispheric TIA with left-sided leg weakness that lasted for a few hours. No new episodes of TIA, amaurosis fugax since then - He continues on full dose aspirin and statin. - carotid duplex shows widely patent right ICA stent with less than 50% stenosis bilaterally - follow-up in 1 year with carotid duplex Sarbjit Robertson MD documented in this encounter Plan of Treatment Scheduled Orders Name Type Priority Associated Diagnoses Orde r Schedule US Carotids Duplex Bilateral Imaging Schedule Routine, Read Routine (OP Routine) Carotid artery stenosis, symptomatic, right Expected: 08/12/2025 (Approximate), Expires: 02/11/2026 documented as of this encounter Visit Diagnoses Diagnosis Carotid artery stenosis, symptomatic, right documented in this encounter Orders Outpatient Referral Count Last Ordered Date Fir st Ordered Date AMB REFERRAL TO VASCULAR SURGERY 1 08/13/19 25 documented in this encounter Care Teams Operational Review Sergeant Relationship Specialty Start Date End Date Edith Xie MD [address] [place] [address] PCP - General Internal Medicine 04/27/20 [place] [address] [address] [facility] [address] [place] [address] Surgeon Cardiothoracic Surgery 08/19/21 Jeffrey Taylor MD [address] [facility] [address] [place] [address] Consulting Physician Cardiology 08/07/23 documented as of this encounter
== END 2024-08-13 11:49 | disposition home or self-care (01) ==
PROVIDERS: PCP Internal Medicine; Visit Provider Internal Medicine Cardiovascular Disease
DX: I25.10 Atherosclerotic heart disease of native coronary artery without angina pectoris (principal); I35.0 Nonrheumatic aortic (valve) stenosis
CPT/HCPCS: 93306

== ENCOUNTER 2024-09-10 06:54 | Outpatient (CLI) | payer MEDICARE, OTHER, SELFPAY ==
--- OUTSIDE RECORDS SUMMARY | 2024-09-10 06:59 | XMS_ITS | Referral Summary ---
Author Organization [facility] [address] [place] [address] Address [address] [place] [address] Care Team Providers Care Game Farm Supervisor Name Role Phone Edith Xie MD Primary Care Provider [phone] Himanshu Llamas MD Unavailable [phone] Jeffrey Taylor MD Unavailable [phone] Encounters Date Type Department Care Team Description 08/15/2024 Results Follow-Up [facility] Medical Group Cardiology [address] [facility] [address] [place] [phone] Theodore Currie MD 08/13/2024 Orders Only [facility] Health Information Management [address] [place] [address] Theodore Currie MD 08/12/2024 2:30 PM CDT Office Visit [facility] Surgery [address] [place] [address] Medical Office Building [address] [place] [phone] Sarbjit Vaca MD Carotid artery stenosis, symptomatic, right 08/12/2024 1:45 PM CDT Ancillary Procedure [facility] Vascular Lab [address] [place] [address] Office [address] [place] [phone] Carotid artery stenosis, symptomatic, right 07/22/2024 11:00 AM CDT Office Visit [facility] Medical Group Cardiology [address] [facility] [address] [place] [phone] Theodore Currie MD Hx of CABG (Primary Dx); Coronary artery disease involving [place] coronary artery of [place] heart without angina pectoris; Aortic valve stenosis, [...] 40 mg tabletIndicatio ns:Coronary artery disease involving [place] coronary artery of [place] heart without angina pectoris TAKE ONE TABLET [...] 07/16/2021 Assessment & Plan (07/16/2021 4:10 PM SALES AGENT BUSINESS SERVICES): Postoperative urinary retention, failed 2 void trials - Martinez catheter replace - FU with his Urologist, Dr. Flavio Stephens on Wednesday 07/19. Coronary artery disease invo lving [place] coronary artery of [place] heart without angina pectoris 06/22/2021 Overview (06/22/2021): Added automatically from request for surgery [id number] Assessment & Plan (07/15/2021 4:03 PM SALES AGENT BUSINESS SERVICES): During routine cardiac work up found to [...] 05/12/202110/07 Assessment & Plan (07/15/2021 4:01 PM SALES AGENT BUSINESS SERVICES): Patient with episode of right hemispheric TIA [...] on file Legal Sex Male 2:26 AM SALES AGENT BUSINESS SERVICES Gender Identity Not on file Sexual Orientation [...] on file Medical Devices Implanted Type Area Engineer Of System Development Device Identifier Shelf Expiration Date Model / Serial / Lot [employer] Sr-0940-[id number] Enroute Uber Flex 9mm .078in 40mm 57cm Delivery System Angle Tip - [id number] Implanted:Qty: 1 on 07/15/2021 by Sarbjit Vaca MD at [facility] Right: Carotid [employer] [id number] 08/06/2023 SR-0940-C S / / [id number] [facility] 24-023-17 Drill-Free Maxdrive Threadlock Ts 2.3mm 17mm Self Retaining - [id number] Implanted:Qty: 6 on 09/09/2021 by Himanshu Llamas MD at [facility] N/A: [facility] 24-023-17 -91 / / Cristina 025-42 Plate Bone Titanium Football H1.8mm Sternal 6 Hole Lock Level 1 Nonsterile 2.3mm Screw Midline Mini Valve Sternotomy - [id number] Implanted:Qty: 1 on 09/09/2021 by Himanshu Llamas MD at [facility] N/A: Piedad Evans 24-025-42 -09 / / Procedures Procedure Name Priority Date/Time Associated Diagnosis Comments CARDIOLOGY DOCUMENT SCAN 08/13/2024 US CAROTIDS DUPLEX BILATERAL Schedule Routine, Read Routine (OP Routine) 08/12/2024 1:46 PM CDT Carotid artery stenosis, symptomatic, right from Last 3 Months Results * Cardiology Document Scan (08/13/2024) Anatomical Region Laterality Modality Other Theodore Currie MD CV CARDIAC SERVICES PROCEDURES Final Result * US Carotids Duplex Bilateral (08/12/2024 1:46 PM CDT) Anatomical Region Laterality Modality Vascular Bilateral Ultrasound 08/12/2024 1:25 PM CDT Narrative 08/15/2024 4:09 PM CDT [facility] - Department of Vascular Surgery, Vascular Laboratory [address] [place] [address] Carotid Duplex Ultrasound Report Patient Name: YAW CHAUDHRY : 1935 (88y 8m) Study Date: 08/12/2024 1:25:40 PM Gender: M Tech: Location: [facility] Ref Provider: SARBJIT VACA Quality: Adequate Order Provider: SARBJIT VACA PROCEDURES: Carotid Report: Carotid duplex examination of the extracranial arteries was performed using 2D, color and spectral Doppler. INDICATIONS: I65.21 Occlusion and stenosis of right carotid artery. MEASUREMENTS: Right Value Units Left Value Units RT Prox CCA PSV 90 cm/sec LT Prox CCA PSV 88 cm/sec RT Prox CCA EDV 11 cm/sec LT Prox CCA EDV 14 cm/sec RT Distal CCA PSV 62 cm/sec LT Distal CCA PSV 52 cm/sec RT Distal CCA EDV 9 cm/sec LT Distal CCA EDV 14 cm/sec RT Prox ICA PSV 36 cm/sec LT Prox ICA PSV 37 cm/sec RT Prox ICA EDV 6 cm/sec LT Prox ICA EDV 11 cm/sec RT Mid ICA PSV 43 cm/sec LT Mid ICA PSV 51 cm/sec RT Mid ICA EDV 10 cm/sec LT Mid ICA EDV 15 cm/sec RT Distal ICA PSV 52 cm/sec LT Distal ICA PSV 87 cm/sec RT Distal ICA EDV 11 cm/sec LT Distal ICA EDV 26 cm/sec RT ECA Prx PSV 103 cm/sec LT ECA Prx PSV 70 cm/sec RT ICA/CCA 0.85 ratio LT ICA/CCA 1.69 ratio RT VERT PSV 51 cm/sec LT VERT PSV 62 cm/sec FINDINGS: Performing Bridge Toll Collector: Vicky Tan RVT. Rt Common Carotid Artery: There is intimal thickening but no significant atherosclerotic plaque noted in the right common carotid artery. Rt Internal Carotid Artery: Duplex imaging of the right internal carotid artery is within normal limits without evidence for atherosclerotic disease. (stented). Rt External Carotid Artery: Patent right external carotid artery with evidence of atherosclerotic disease present. Rt Vertebral Artery: The right vertebral artery is patent with antegrade flow. Lt Common Carotid Artery: There is intimal thickening but no significant atherosclerotic plaque noted in the left common carotid artery. Lt Internal Carotid Artery: The plaque in the left internal carotid artery appears to be heterogeneous, calcified and irregular. Atherosclerotic changes of the left internal carotid artery without hemodynamically significant Doppler findings. <50% stenosis. Lt External Carotid Artery: Patent left external carotid artery with evidence of atherosclerotic disease present. Lt Vertebral Artery: The left vertebral artery is patent with antegrade flow. Comments: The stented right Internal Carotid Artery is patent and throughout the stent a maximum peak systolic velocity 52 cm/sec, an end diastolic velocity of 11 cm/sec, stented ICA/CCA ratio 0.85. CONCLUSIONS: 1. The stented right Internal Carotid Artery is patent and throughout the stent a maximum peak systolic velocity 52 cm/sec, an end diastolic velocity of 11 cm/sec, stented ICA/CCA ratio 0.85. 2. The left internal carotid artery disease is consistent with a less than 50% stenosis. 3. No evidence of hemodynamically significant stenosis in the common carotid artery bilaterally. 4. Normal, antegrade flow is noted in bilateral vertebral arteries. HISTORY: Right transcervical carotid stent 07/15/21 CVA, HTN, CAD, CABG, HLD, AF, Former smoker. PREVIOUS STUDIES: Previous carotid ultrasound on 08/07/23 <50 bilat; patent stent Rt ICA; Ant verts bilat. DISCLAIMER: The study images and the final report will be retained in the patient chart by the Vascular Laboratory for the legally required time period. This chart constitutes the legal record of any testing performed. ATTESTATION: I have reviewed and interpreted the pertinent images and measurements of this study. I attest to the conclusions in the final report that is provided above. Electronically Signed By: Sarbjit BENTLEY OR 08/15/2024 4:08:26 PM CDT Procedure Note Sarbjit Vaca MD - 08/15/2024 [facility] - Department of Vascular Surgery,Vascular Laboratory [address] [place] [address] Carotid Duplex Ultrasound Report Patient Name: YAW CHAUDHRY : 1935 (88y 8m) Study Date: 08/12/2024 1:25:40 PM Gender: M Tech: Location: [facility] Ref Provider: SARBJIT VACA Quality: Adequate Order Provider: SARBJIT VACA PROCEDURES: Carotid Report: Carotid duplex examination of the extracranial arterieswas performed using 2D, color and spectral Doppler. INDICATIONS: I65.21 Occlusion and stenosis of right carotid artery. MEASUREMENTS: Right Value Units Left Value Units RT Prox CCA PSV 90 cm/sec LT Prox CCA PSV 88 cm/sec RT Prox CCA EDV 11 cm/sec LT Prox CCA EDV 14 cm/sec RT Distal CCA PSV 62 cm/sec LT Distal CCA PSV 52 cm/sec RT Distal CCA EDV 9 cm/sec LT Distal CCA EDV 14 cm/sec RT Prox ICA PSV 36 cm/sec LT Prox ICA PSV 37 cm/sec RT Prox ICA EDV 6 cm/sec LT Prox ICA EDV 11 cm/sec RT Mid ICA PSV 43 cm/sec LT Mid ICA PSV 51 cm/sec RT Mid ICA EDV 10 cm/sec LT Mid ICA EDV 15 cm/sec RT Distal ICA PSV 52 cm/sec LT Distal ICA PSV 87 cm/sec RT Distal ICA EDV 11 cm/sec LT Distal ICA EDV 26 cm/sec RT ECA Prx PSV 103 cm/sec LT ECA Prx PSV 70 cm/sec RT ICA/CCA 0.85 ratio LT ICA/CCA 1.69 ratio RT VERT PSV 51 cm/sec LT VERT PSV 62 cm/sec FINDINGS: Performing Bridge Toll Collector: Vicky Tan RVT. Rt Common Carotid Artery: [...] legal record of any testing performed. ATTESTATION: I have reviewed and interpreted the pertinent images and measurements ofthis study. I attest to the conclusions in the final report that is provided above. Electronically Signed By: Sarbjit AQUINO 08/15/2024 4:08:26 PM CDT Sarbjit Vaca MD [facility] PROCEDURES Final Resu lt from Last 3 Months Insurance MEDICARE [facility] [place] [address] MEDICARE [facility] MEDICARE [facility] Advance Directives For more information, please contact: [phone] * Full Code (Latest Code Status on File) Date Activated Date Inactivated Comments 09/09/2021 6:06 PM 09/16/2021 6:26 PM * Full Code Date Activated Date Inactivated Comments 07/15/2021 7:40 PM 07/16/2021 9:44 PM Care Teams Game Farm Supervisor Relationship Specialty Start Date End Date Edith Xie MD [address] [place] [address] PCP - General Internal Medicine 04/27/20 [place] [address] [address] [facility] [address] [place] [address] Surgeon Cardiothoracic Surgery 08/19/21 Jeffrey Taylor MD [address] [facility] [address] [place] [address] Consulting Physician Cardiology 08/07/23
--- OUTSIDE RECORDS SUMMARY | 2024-09-10 06:59 | XMS_ITS | Clinical Summary ---
Author Organization [facility] Address [address], [place] [address] Phone Care Team Providers Care Flume Ride Operator Name Role Phone Edith Xie MD Primary Care Provider [phone] Allergies No known active allergies Medications losartan (COZAAR) 50 MG tablet 09/15/2020 Active EPINEPHrine (EPIPEN) 0.3 MG/0.3ML injection syringe 01/07/2021 Active Active Problems Problem Noted Date Diagnosed Date Essential hypertension 10/07/2020 Hyposmolality and/or hyponatremia 10/01/2020 Chronic pansinusitis 05/12/2020 Immunizations Immunization Administration Dates Next Due Influenza TIV (IM) 01/20/2021 Pneumococcal Conjugate 01/06/2019 Social History Tobacco Use Types Packs/Day Years Used Date Smoking Tobacco: Never Smokeless Tobacco: Never Alcohol Use Standard Drinks/Week Comments Not Currently 0 (1 standard drink = 0.6 oz pur e alcohol) Sex and Gender Information Value Date Recorded Sex Assigned at Not on file Legal Sex Male 9:57 AM MDT Gender Identity Not on file Sexual Orientation [...] Medium Risk (1 of 4 - PCV) 11/29/1987 Influenza Vaccine (Season Ended) 2025 01/21/20 21 Insurance MEDICARE [employer] MEDICARE SUPPLEMENT Care Teams Flume Ride Operator Relationship Specialty Start Date End Date Edith Xie MD [address] [place] [address] PCP - General Internal Medicine 09/09/20
--- OUTSIDE RECORDS SUMMARY | 2024-09-10 06:59 | XMS_ITS | CONTINUITY OF CARE DOCUMENT ---
Author Name raviobedjanuary Address Unknown Organization [facility] Address [address] [facility] [address] [place] [address] Phone [phone] Care Team Providers Care Mechanical Inspector Name Role Phone Louie SAVAGE, Gloria Unavailable DONNA SAVAGE, LEXUS Norton Unavailable [phone] JONNATHAN SAVAGE, ELISSA Unavailable INSURANCE PROVIDERS Payer name Policy type / Coverage type [place] red constitution party ID [facility] [id number] [place] MEDICARE Medicare [id number]
--- OUTSIDE RECORDS SUMMARY | 2024-09-10 06:59 | XMS_ITS | Encounter Summary ---
Author Organization [facility] Healthcare Address [address] [place] [address] Care Team Providers Care Multiple Coil Winder Name Role Phone Edith Xie MD Primary Care Provider + [phone] Himanshu Llamas MD Unavailable [phone] Jeffrey Taylor MD Unavailable [phone] Encounter Details Date Type Department Care Team (Late st Contact Info) Description 08/15/2024 Results Follow-Up [facility] Medical Group Cardiology [address] [place] [address] Theodore Currie MD [address] [place] [id number] Social History Tobacco Use Types Packs/Day Years [...] on file Legal Sex Male 2:26 AM DRY CLEANER HAND Gender Identity Not on file Sexual Orientation Not on file documented as of this encounter Plan of Treatment Not on file documented as of this encounter Visit Diagnoses Not on filedocumented in this encounter Care Teams Multiple Coil Winder Relationship Specialty Start Date End Date Edith Xie MD [address] [place] [address] PCP - General Internal Medicine 04/27/20 [place] [address] [address] [facility] [address] [place] [address] Surgeon Cardiothoracic Surgery 08/19/21 Jeffrey Taylor MD [address] [facility] [address] [place] [address] Consulting Physician Cardiology 08/07/23 documented as of this encounter
--- OUTSIDE RECORDS SUMMARY | 2024-09-10 06:59 | XMS_ITS | Clinical Summary ---
Author Organization [address] Address [address] [place] [address] Care Team Providers Care Director Of Land Acquisition Name Role Phone Edith Xie MD Primary Care Provider + [phone] Himanshu Llamas MD Unavailable Jeffrey Taylor MD Unavailable [phone] Allergies Active Allergy Reactions Criticality Noted Date [...] 40 mg tabletIndicatio ns:Coronary artery disease involving twenty-nine palms coronary artery of twenty-nine palms heart without angina pectoris TAKE ONE TABLET [...] 07/16/2021 Assessment & Plan (07/16/2021 4:10 PM JUNIOR WEB DESIGNER): Postoperative urinary retention, failed 2 void trials - Martinez catheter replace - FU with his Urologist, Dr. Flavio Stephens on Wednesday 07/19. Coronary artery disease invo lving twenty-nine palms coronary artery of twenty-nine palms heart without angina pectoris 06/22/2021 Overview (06/22/2021): Added automatically from request for surgery [id number] Assessment & Plan (07/15/2021 4:03 PM JUNIOR WEB DESIGNER): During routine cardiac work up found to [...] 05/2021 Assessment & Plan (07/15/2021 4:01 PM JUNIOR WEB DESIGNER): Patient with episode of right hemispheric TIA [...] Department Care Team Description 08/15/2024 Results Follow-Up [facility] Cardiology [address] [facility] [address] [place] [address] Theodore Currie MD 08/13/2024 Orders Only [facility] Health Information Management [address] [place] [address] Theodore Currie MD 08/12/2024 2:30 PM CDT Office Visit [facility] Surgery [address] [place] [address] Medical Office Building [address] [place] [phone] Sarbjit Vaca MD Carotid artery stenosis, symptomatic, right 08/12/2024 1:45 PM CDT Ancillary Procedure [facility] Vascular Lab [address] [place] [address] Office Building [address] [place] [phone] Carotid artery stenosis, symptomatic, right 07/22/2024 11:00 AM CDT Office Visit [facility] Cardiology [address] [place] [address] Theodore Currie MD Hx of CABG (Primary Dx); Coronary artery disease involving twenty-nine palms coronary artery of twenty-nine palms heart without angina pectoris; Aortic valve stenosis, [...] disease) Sleep apnea CVA (cerebral vascular accident) ([facility]) 04/2021 Vertigo improved since e liquis discontinued [...] on file Legal Sex Male 2:26 AM JUNIOR WEB DESIGNER Gender Identity Not on file Sexual Orientation [...] Fall Risk Assessment 09/16/2022 09/16/2021 Covid-19 Vaccine (2023- 5 season) 2024 04/08/2021, 07/01/2020, 06/10/2020 DTaP/Tdap/Td Vaccine (2 - Td or Tdap) 12/22/2024 12/22/2014, 02/28/1995 Influenza Vaccine (Season Ended) 2025 01/20/2021, 01/07/2021, 02/15/2019, Additional history exists Pneumococcal vaccine 65+ Completed 019, 03/19/2015, 03/04/2011 Medical Devices Implanted Type Area Personal Lines Sales Executive Device Identifier Shelf Expiration Date Model / Serial / Lot [employer] Inc Sr-0940-Cs Enroute Uber Flex 9mm .078in 40mm 57cm Delivery System Angle Tip - [id number] Implanted:Qty: 1 on 07/15/2021 by Sarbjit Vaca MD at [facility] Right: Carotid [employer] [id number] 08/06/2023 SR-0940-C S / / [id number] [facility] 24-023-17 Drill-Free Maxdrive Threadlock Ts 2.3mm 17mm Self Retaining - [id number] Implanted:Qty: 6 on 09/09/2021 by Himanshu Llamas MD at [facility] N/A: Sternum [facility] 24-023-17 -91 / / [facility] -025-42 Plate Bone Titanium Football H1.8mm Sternal 6 Hole Lock Level 1 Nonsterile 2.3mm Screw Midline Mini Valve Sternotomy - [id number] Implanted:Qty: 1 on 09/09/2021 by Himanshu Llamas MD at [facility] N/A: Sternum [facility] 24-025-42 - / / Procedures Procedure Name Priority Date/Time Associated Diagnosis Comments CARDIOLOGY DOCUMENT SCAN 08/13/2024 US CAROTIDS DUPLEX BILATERAL Schedule Routine, Read Routine (OP Routine) 08/12/2024 1:46 PM CDT Carotid artery stenosis, symptomatic, right from Last 3 Months Results * Cardiology Document Scan (08/13/2024) Anatomical Region Laterality Modality Other us Theodore Currie MD CV CARDIAC SERVICES PROCEDURES Final Result * US Carotids Duplex Bilateral (08/12/2024 1:46 PM CDT) Anatomical Region Laterality Modality Vascular Bilateral Ultrasound 08/12/2024 1:25 PM CDT Narrative 08/15/2024 4:09 PM CDT [facility] - Department of Vascular Surgery, Vascular Laboratory [address] [place] [address] Carotid Duplex Ultrasound Report Patient Name: YAW CHAUDHRY : 1935 (88y 8m) Study Date: 08/12/2024 1:25:40 PM Gender: M Tech: AC Location: [facility] Ref Provider: SARBJIT VACA Quality: [...] LT VERT PSV 62 cm/sec FINDINGS: Performing Etcher Machine: Vicky Tan RVT. Rt Common Carotid Artery: [...] Procedure Note Sarbjit Vaca MD - 08/15/2024 [facility] - Department of Vascular Surgery,Vascular Laboratory [address] [place] [address] Carotid Duplex Ultrasound Report Patient Name: YAW CHAUDHRY : 1935 (88y 8m) Study Date: 08/12/2024 1:25:40 PM Gender: M Tech: Location: [facility] Provider: SARBJIT VACA Quality: Adequate Order Provider: [...] LT VERT PSV 62 cm/sec FINDINGS: Performing Etcher Machine: Vicky Tan RVT. Rt Common Carotid Artery: [...] By: Sarbjit AQUINO 08/15/2024 4:08:26 PM CDT us Sarbjit Vaca MD [facility] PROCEDURES Final Resu lt from Last 3 Months Insurance MEDICARE [facility] MEDICARE [facility] MEDICARE [facility] Advance Directives For more information, please contact: [phone] * Full Code (Latest Code Status on File) Date Activated Date Inactivated Comments 09/09/2021 6:06 PM 09/16/2021 6:26 PM * Full Code Date Activated Date Inactivated Comments 07/15/2021 7:40 PM 07/16/2021 9:44 PM Care Teams Director Of Land Acquisition Relationship Specialty Start Date End Date Edith Xie MD [address] [place] [address] PCP - General Internal Medicine 04/27/20 [place] [address] [address] [place] [address] Surgeon Cardiothoracic Surgery 08/19/21 Jeffrey Taylor MD [address] [place] [address] Consulting Physician Cardiology 08/07/23
[2024-09-10 07:12] LABS: Add Urine Microscopic? YES; Appearance Urine Clear (Clear); Bilirubin Urine Negative (Negative); Blood Urine Negative (Negative); Color Urine Light Yellow (Yellow); Glucose Urine UA Negative (Negative); Ketones Urine Negative (Negative); Leukocyte Esterase Ur 2+ (Negative); Nitrate Urine Negative (Negative); Protein Urine Negative (Negative); Urobilinogen Urine 0.2 mg/dL (0.2-1.0)
[2024-09-10 07:24] LABS: Hematocrit 42.2 % (37.0-46.0); Mean Corpuscular HGB Conc 33.2 g/dL (32-36); Mean Corpuscular Hemoglobin 31.5 pg (27.0-31.0); Mean Platelet Volume 9.2 fl (8.7-11.0); Platelet Count Result 144 K/mm3 (150-420); Red Blood Count 4.44 M/mm3 (4.70-6.10); Red Cell Distribution Width 12.9 % (11.6-14.4)
[2024-09-10 07:40] LABS: Hemoglobin A1C 5.8 % (<5.7)
[2024-09-10 07:55] LABS: RBC Urine 0-2 /hpf (0-2)
[2024-09-10 07:56] LABS: Bacteria Urine Trace /hpf; Squamous Epithelial Cell Urine Rare /hpf (Few)
[2024-09-10 08:37] LABS: Alanine Aminotransferase 22 U/L (16-63); Albumin Level 3.6 g/dL (3.4-5.0); Alkaline Phosphatase 91 U/L (46-116); Anion Gap 6 mmol/L (4-12); Aspartate Amino Transferase 18 U/L (15-37); Bilirubin,Total 0.6 mg/dL (0.00-1.00); Blood Urea Nitrogen 13 mg/dL (7-18); Calcium 8.9 mg/dL (8.5-10.1); Carbon Dioxide 30 mmol/L (21-32); Chloride 95 mmol/L (98-108); Cholesterol 128 mg/dL (0-200); Creatine Kinase 53 U/L (39-308); Estimated Glomerular Filt Rate > 60; Ferritin 107 ng/mL (26-388); Glucose 99 mg/dL (70-99); HDL Direct 69 mg/dL (40-60); Iron 83 ug/dL (65-175); LDL Cholesterol Calculated 55 mg/dL (<130); Osmolality Calculated 272 mOsm/kg (285-295); Potassium 4.1 mmol/L (3.5-5.1); Sodium 131 mmol/L (136-145); Total Protein 6.7 g/dL (6.4-8.2); Triglycerides 22 mg/dL (0-150)
== END 2024-09-10 06:55 | disposition home or self-care (01) ==
LOC: CHSLAB 06:57
PROVIDERS: PCP Internal Medicine; Visit Provider Internal Medicine
DX: I25.10 Atherosclerotic heart disease of native coronary artery without angina pectoris (principal); I10 Essential (primary) hypertension; E78.2 Mixed hyperlipidemia; C61 Malignant neoplasm of prostate; R73.01 Impaired fasting glucose; D50.9 Iron deficiency anemia, unspecified
CPT/HCPCS: 36415; 80053; 80061; 81001; 82550; 82728; 83036; 83540; 85027

== ENCOUNTER 2024-09-17 07:35 | Outpatient (CLI) | payer MEDICARE, SELFPAY ==
--- OUTSIDE RECORDS SUMMARY | 2024-09-17 07:38 | XMS_ITS | Clinical Summary ---
Author Organization [facility] Address [address] [address] Phone Care Team Providers Care Delivery Table Operator Name Role Phone Edith Xie MD Primary Care Provider [phone] Allergies No known active allergies Medications losartan [...] [employer] [place] MEDICARE SUPPLEMENT Care Teams Delivery Table Operator Relationship Specialty Start Date End Date Edith Xie MD [address] [place] [address] PCP - General Internal Medicine 09/09/20
--- OUTSIDE RECORDS SUMMARY | 2024-09-17 07:38 | XMS_ITS | CONTINUITY OF CARE DOCUMENT ---
Author Name januaryjanuary Address Unknown Organization [facility] Address [address] [facility] [address] [place] [address] Phone [phone] Care Team Providers Care Plastics Repairer Name Role Phone Louie SAVAGE, Gloria Unavailable DONNA SAVAGE, LEXUS Norton Unavailable [phone] JONNATHAN SAVAGE, ELISSA Unavailable INSURANCE PROVIDERS Payer name Policy type / Coverage type [place] red democrat ID [facility] Blue [facility] [id number] [place] MEDIC[place] Medicare [id number]
--- OUTSIDE RECORDS SUMMARY | 2024-09-17 07:39 | XMS_ITS | Clinical Summary ---
Author Organization [address] Address [address] [place] [address] Care Team Providers Care Oil Well Services Dispatcher Name Role Phone Edith Xie MD Primary Care Provider + [phone] Himanshu Llamas MD Unavailable [phone] Jeffrey Taylor MD Unavailable [phone] Allergies Active Allergy Reactions Criticality Noted Date Comments Jimmy Inhibitors Unknown 05/12/2021 Oxycodone Nausea only Low 06/29/2021 Venom-Honey Bee Swelling High 06/29/2021 Yellow Jacket Medications acetaminophen (TYLENOL) 500 mg tabletIndicati ons:Neck pain, acute,Acute pain of both shoulders Take 2 tablets (1,000 mg total) by mouth 3 (three) times a day as needed for pain 2 Active docusate sodium (COLACE) 100 mg capsuleIndicat ions:constipat ion Take 2 capsules (200 mg total) by mouth as needed Active multivitamin capsuleIndicat ions:Vitamin Deficiency Prevention Take 1 capsule by mouth [...] (2 g total) by mouth daily Active Bifidobacteriu m infantis (ALIGN) 4 mg capsule Take 1 capsule (4 mg total) by mouth daily Active cetirizine (ZyrTEC) 10 mg capsule Take 1 tablet by mouth as needed Active atorvastatin (LIPITOR) 40 mg tabletIndicati ons:Coronary artery disease involving [place] coronary artery of [place] heart without angina pectoris TAKE ONE TABLET BY MOUTH DAILY 90 tablet 3 4 Active Additional Information Patient taking differently: 20 mg oral Daily, Reported on 08/12/2024 metoprolol tartrate (LOPRESSOR) 25 mg immediate release tablet Take 0.5 tablets (12.5 mg total) by mouth 2 (two) times a day 90 tablet 1 5 Active metoprolol tartrate (LOPRESSOR) 25 mg immediate release tablet TAKE HALF A TABLET BY MOUTH TWICE A DAY 90 tablet 1 4 09/11/19 25 Discontin ued(Reord er) Active Problems Problem Noted Date Diagnosed Date Essential hypertension 07/22/2024 Hx of CABG 10/26/2021 History of common carotid artery stent placement 10/26/2021 Hypercholesteremia 10/26/2021 History of atrial fibrillation 10/26/2021 Urinary retention 07/16/2021 Assessment & Plan (07/16/2021 4:10 PM DAIRY TESTER): Postoperative urinary retention, failed 2 void trials - Martinez catheter replace - FU with his Urologist, Dr. Flavio Stephens on Wednesday 07/19. Coronary artery disease invo lving [place] coronary artery of [place] heart without angina pectoris 06/22/2021 Overview (06/22/2021): Added automatically from request for surgery [id number] Assessment & Plan (07/15/2021 4:03 PM DAIRY TESTER): During routine cardiac work up found to [...] 05/12/202110/07 Assessment & Plan (07/15/2021 4:01 PM DAIRY TESTER): Patient with episode of right hemispheric TIA [...] Department Care Team Description 08/15/2024 Results Follow-Up [facility] [address] [place] [phone] Theodore Currie MD 08/13/2024 Orders Only [facility] Health Information Management [address] [place] [address] Theodore Currie MD 08/12/2024 2:30 PM CDT Office Visit [facility] Surgery [address] [place] [address] Medical Office Building [address] [place] [phone] Sarbjit Vaca MD Carotid artery stenosis, symptomatic, right 08/12/2024 1:45 PM CDT Ancillary Procedure [facility] Vascular Lab [address] [place] [address] Medical Office Building [address] [place] [phone] Carotid artery stenosis, symptomatic, right 07/22/2024 11:00 AM CDT Office Visit [facility] Cardiology [address] [facility] [address] [place] [phone] Theodore Currie MD Hx of CABG (Primary Dx); Coronary artery disease involving [place] coronary artery of [place] heart without angina pectoris; Aortic valve stenosis, [...] disease) Sleep apnea CVA (cerebral vascular accident) ([facility]) 04/2021 Vertigo improved since e liquis discontinued [...] on file Legal Sex 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 Gender Identity Not on file Sexual Orientation [...] 03/19/2015, 03/04/2011 Medical Devices Implanted Type Area Wire Bender Hand Device Identifier Shelf Expiration Date Model / Serial / Lot [employer] Sr-0940-Cs Enroute Uber Flex 9mm .078in 40mm 57cm Delivery System Angle Tip - [id number] Implanted:Qty: 1 on 07/15/2021 by Sarbjit Vaca MD at [facility] Right: Carotid [employer] [id number] 08/06/2023 SR-0940-C S / / [id number] Located Within [facility] 24-023-17 Drill-Free Maxdrive Threadlock Ts 2.3mm 17mm Self Retaining - [id number] Implanted:Qty: 6 on 09/09/2021 by Himanshu Llamas MD at [facility] N/A: Sternum [facility] 24-023-17 -91 / / [facility] 24-025-42 Plate Bone Titanium Football H1.8mm Sternal 6 Hole Lock Level 1 Nonsterile 2.3mm Screw Midline Mini Valve Sternotomy - [id number] Implanted:Qty: 1 on 09/09/2021 by Himanshu Llamas MD at [facility] N/A: Sternum Located Within [facility] 24-025-42 - / / Procedures Procedure [...] PM CDT Narrative 08/15/2024 4:09 PM CDT [facility] - Department of Vascular Surgery, Vascular Laboratory [address] [place] [address] Carotid Duplex Ultrasound Report Patient Name: YAW CHAUDHRY : 1935 (88y 8m) Study Date: 08/12/2024 1:25:40 PM Gender: M Tech: Location: [facility] Ref Provider: SARBJIT VACA Quality: [...] LT VERT PSV 62 cm/sec FINDINGS: Performing General Labor: Vicky Tan RVT. Rt Common Carotid Artery: [...] Procedure Note Sarbjit Vaca MD - 08/15/2024 [facility] - Department of Vascular Surgery,Vascular Laboratory [address] [place] [address] Carotid Duplex Ultrasound Report Patient Name: YAW CHAUDHRY : 1935 (88y 8m) Study Date: 08/12/2024 1:25:40 PM Gender: M Tech: Location: [facility] Ref Provider: SARBJIT VACA Quality: [...] LT VERT PSV 62 cm/sec FINDINGS: Performing General Labor: Vicky Tan RVT. Rt Common Carotid Artery: [...] Sarbjit [place]ENT[place] 08/15/2024 4:08:26 PM CDT us Sarbjit Vaca MD [facility] PROCEDURES Final Resu lt from Last 3 Months Insurance MEDICARE [employer] [place] MEDICARE [employer] [place] MEDICARE [facility] [facility] Advance Directives For more information, please contact: [phone] * Full Code (Latest Code Status on File) Date Activated Date Inactivated Comments 09/09/2021 6:06 PM 09/16/2021 6:26 PM * Full Code Date Activated Date Inactivated Comments 07/15/2021 7:40 PM 07/16/2021 9:44 PM Care Teams Oil Well Services Dispatcher Relationship Specialty Start Date End Date Edith Xie MD [address] [place] [address] PCP - General Internal Medicine 04/27/20 [place] [address] [address] [address] Surgeon Cardiothoracic Surgery 08/19/21 Jeffrey Taylor MD [address] [facility] [address] [place] [phone] Consulting Physician Cardiology 08/07/23
--- OUTSIDE RECORDS SUMMARY | 2024-09-17 07:39 | XMS_ITS | Encounter Summary ---
Author Organization [facility] Healthcare Address [address] [place] [address] Care Team Providers Care Repair Welder Name Role Phone Edith Xie MD Primary Care Provider + [phone] Himanshu Llamas MD Unavailable [phone] Jeffrey Taylor MD Unavailable [phone] Encounter Details Date Type Department Care Team (Late st Contact Info) Description 08/15/2024 Results Follow-Up [facility] Medical Group Cardiology [address] [place] [address] Theodore Currie MD [address] [place] [address] Social History Tobacco Use Types Packs/Day [...] on file 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 Gender Identity Not on file Sexual Orientation Not on file documented as of this encounter Plan of Treatment Not on file documented as of this encounter Visit Diagnoses Not on filedocumented in this encounter Care Teams Repair Welder Relationship Specialty Start Date End Date Edith Xie MD [address] [place] [address] PCP - General Internal Medicine 04/27/20 [place] [address] [address] [facility] [address] [place] [address] Surgeon Cardiothoracic Surgery 08/19/21 Jeffrey Taylor MD [address] [facility] [address] [place] [address] Consulting Physician Cardiology 08/07/23 documented as of this encounter
--- OUTSIDE RECORDS SUMMARY | 2024-09-17 07:39 | XMS_ITS | Referral Summary ---
Author Organization [facility] [address] [place] [address] Address [address] [place] [address] Care Team Providers Care Assembler Metal Furniture Name Role Phone Edith Xie MD Primary Care Provider + [phone] Himanshu Llamas MD Unavailable [phone] Jeffrey Taylor MD Unavailable [phone] Encounters Date Type Department Care Team Description 08/15/2024 Results Follow-Up [facility] Medical Group Cardiology [address] [facility] [address] [place] [phone] Theodore Currie MD 08/13/2024 Orders Only [facility] Health Information Management [address] [place] [address] Theodore Currie MD 08/12/2024 2:30 PM CDT Office Visit [facility] Surgery [address] [place] [address] Medical Office Building [address] [place] [phone] Sarbjit Vaca MD Carotid artery stenosis, symptomatic, right 08/12/2024 1:45 PM CDT Ancillary Procedure [facility] Vascular Lab [address] [place] [address] Office Building [address] [place] [phone] Carotid artery stenosis, symptomatic, right 07/22/2024 11:00 AM CDT Office Visit [facility] Medical Group Cardiology [address] [facility] [address] [place] [phone] Theodore Currie MD Hx of CABG (Primary Dx); Coronary artery disease involving [place] coronary artery of [place] heart without angina pectoris; Aortic valve stenosis, [...] 40 mg tabletIndicati ons:Coronary artery disease involving [place] coronary artery of [place] heart without angina pectoris TAKE ONE TABLET [...] 07/16/2021 Assessment & Plan (07/16/2021 4:10 PM PLANT NURSERY WORKER): Postoperative urinary retention, failed 2 void trials - Martinez catheter replace - FU with his Urologist, Dr. Flavio Stephens on Wednesday 07/19. Coronary artery disease invo lving [place] coronary artery of [place] heart without angina pectoris 06/22/2021 Overview (06/22/2021): Added automatically from request for surgery [id number] Assessment & Plan (07/15/2021 4:03 PM PLANT NURSERY WORKER): During routine cardiac work up found to [...] Date Dizziness 05/12/2021 10/26/2021 Carotid stenosis, right 05/12/2021/2 05/2021 Assessment & Plan (07/15/2021 4:01 PM PLANT NURSERY WORKER): Patient with episode of right hemispheric TIA [...] Average Number of Drinks Not on file Q3: How often do you have si x or more drinks on one occasion? 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 Gender Identity Not on file Sexual Orientation [...] on file Medical Devices Implanted Type Area Car Lot Attendant Device Identifier Shelf Expiration Date Model / Serial / Lot [employer] Sr-0940-Cs Enroute Uber Flex 9mm .078in 40mm 57cm Delivery System Angle Tip - [id number] Implanted:Qty: 1 on 07/15/2021 by Sarbjit Vaca MD at [facility] Right: Carotid [employer] [id number] 08/06/2023 SR-0940-C S / / [id number] [employer] 24-023-17 Drill-Free Maxdrive Threadlock Ts 2.3mm 17mm Self Retaining - [id number] Implanted:Qty: 6 on 09/09/2021 by Himanshu Llamas MD at [facility] N/A: Sternum Cristina Michel 24-023-17 -91 / / [facility] 24-025-42 Plate Bone Titanium Football H1.8mm Sternal 6 Hole Lock Level 1 Nonsterile 2.3mm Screw Midline Mini Valve Sternotomy - [id number] Implanted:Qty: 1 on 09/09/2021 by Himanshu Llamas MD at [facility] N/A: [facility] 24-025-42 -09 / / Procedures Procedure [...] PM CDT Narrative 08/15/2024 4:09 PM CDT [facility] - Department of Vascular Surgery, Vascular Laboratory [address] [place] [address] Carotid Duplex Ultrasound Report Patient Name: YAW CHAUDHRY : 1935 (88y 8m) Study Date: 08/12/2024 1:25:40 PM Gender: M Tech: Location: [facility] Ref Provider: SARBJIT VACA Quality: Adequate [...] LT VERT PSV 62 cm/sec FINDINGS: Performing Corporate Secretary: Vicky Tan RVT. Rt Common Carotid Artery: [...] Procedure Note Sarbjit Vaca MD - 08/15/2024 [facility] - Department of Vascular Surgery,Vascular Laboratory [address] [place] [address] Carotid Duplex Ultrasound Report Patient Name: YAW CHAUDHRY : 1935 (88y 8m) Study Date: 08/12/2024 1:25:40 PM Gender: M Tech: Location: [facility] Provider: SARBJIT VACA Quality: Adequate Order [...] LT VERT PSV 62 cm/sec FINDINGS: Performing Corporate Secretary: JEMAL KnappT. Rt Common Carotid Artery: There is intimal [...] 4:08:26 PM CDT us Sarbjit Vaca MD [facility] Final Resu lt from Last 3 Months Insurance MEDICARE [facility] MEDICARE [facility] MEDICARE [facility] Advance Directives For more information, please contact: [phone] * Full Code (Latest Code Status on File) Date Activated Date Inactivated Comments 09/09/2021 6:06 PM 09/16/2021 6:26 PM * Full Code Date Activated Date Inactivated Comments 07/15/2021 7:40 PM 07/16/2021 9:44 PM Care Teams Assembler Metal Furniture Relationship Specialty Start Date End Date Edith Xie MD [address] [place] [address] PCP - General Internal Medicine 04/27/20 [place] [address] [address] [place] [address] Surgeon Cardiothoracic Surgery 08/19/21 Jeffrey Taylor MD [address] [address] Consulting Physician Cardiology 08/07/23
[2024-09-17 08:19] LABS: Add Urine Microscopic? YES; Appearance Urine Clear (Clear); Bilirubin Urine Negative (Negative); Blood Urine Negative (Negative); Color Urine Light Yellow (Yellow); Glucose Urine UA Negative (Negative); Ketones Urine Negative (Negative); Leukocyte Esterase Ur 3+ (Negative); Nitrate Urine Negative (Negative); Protein Urine Negative (Negative); Specific Grav Ur <= 1.005 (1.010-1.020); Urobilinogen Urine 0.2 mg/dL (0.2-1.0); pH Urine 6.5 (5.0-8.0)
[2024-09-17 08:24] LABS: RBC Urine None seen /hpf (0-2)
[2024-09-17 08:25] LABS: Bacteria Urine Trace /hpf
== END 2024-09-17 07:36 | disposition home or self-care (01) ==
LOC: CHSLAB 07:37
PROVIDERS: PCP Internal Medicine; Visit Provider Internal Medicine
DX: R82.81 Pyuria (principal)
CPT/HCPCS: 81001; 87077; 87086; 87088; 87181

== ENCOUNTER 2024-10-01 08:11 | Outpatient (CLI) | payer MEDICARE, SELFPAY ==
--- OUTSIDE RECORDS SUMMARY | 2024-10-01 08:15 | XMS_ITS | CONTINUITY OF CARE DOCUMENT ---
Author Name januaryjanuary Address Unknown Organization [facility] Address [address] [facility] [address] [place] [address] Phone [phone] Care Team Providers Care Tourist Agent Name Role Phone Louie SAVAGE, Gloria Unavailable DONNA SAVAGE, LEXUS Norton Unavailable [phone] JONNATHAN SAVAGE, ELISSA Unavailable [phone] INSURANCE PROVIDERS Payer name Policy type / Coverage type [place] red green party ID [facility] Blue [facility] [id number] [place] MEDICARE Medicare [id number]
--- OUTSIDE RECORDS SUMMARY | 2024-10-01 08:15 | XMS_ITS | Clinical Summary ---
Author Organization [address] Address [address] [place] [address] Care Team Providers Care Technology Architect Name Role Phone Edith Xie MD Primary Care Provider + [phone] Himanshu Llamas MD Unavailable Jeffrey Taylor MD Unavailable [phone] Allergies Active Allergy Reactions Criticality Noted Date [...] 40 mg tabletIndicati ons:Coronary artery disease involving [place] coronary artery of [place] heart without angina pectoris TAKE ONE TABLET [...] 07/16/2021 Assessment & Plan (07/16/2021 4:10 PM SITE SAFETY MANAGER): Postoperative urinary retention, failed 2 void trials - Martinez catheter replace - FU with his Urologist, Dr. Flavio Stephens on Wednesday 07/19. Coronary artery disease invo lving [place] coronary artery of [place] heart without angina pectoris 06/22/2021 Overview (06/22/2021): Added automatically from request for surgery [id number] Assessment & Plan (07/15/2021 4:03 PM SITE SAFETY MANAGER): During routine cardiac work up found to [...] 05/12/202110/07 Assessment & Plan (07/15/2021 4:01 PM SITE SAFETY MANAGER): Patient with episode of right hemispheric TIA [...] Department Care Team Description 08/15/2024 Results Follow-Up [facility] Cardiology [address] [place] [phone] Theodore Currie MD Cardiology Document Scan 08/13/2024 Orders Only [facility] Information Management [address] [place] [address] Theodore Currie MD 08/12/2024 2:30 PM CDT Office Visit [facility] Surgery [address] [place] [address] Medical Office Building [address] [place] [phone] Sarbjit Vaca MD Carotid artery stenosis, symptomatic, right 08/12/2024 1:45 PM CDT Ancillary Procedure [facility] Vascular Lab [address] [place] [address] Medical Office Building [address] [place] [phone] Carotid artery stenosis, symptomatic, right 07/22/2024 11:00 AM CDT Office Visit [facility] Cardiology [address] [place] [phone] Theodore Currie MD Hx of CABG (Primary Dx); Coronary artery disease involving [place] coronary artery of [place] heart without angina pectoris; Aortic valve stenosis, [...] disease) Sleep apnea CVA (cerebral vascular accident) (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 Gender Identity Not on file Sexual Orientation [...] 03/19/2015, 03/04/2011 Medical Devices Implanted Type Area Wood Tile Installer Device Identifier Shelf Expiration Date Model / Serial / Lot [employer] Sr-0940-Cs Enroute Uber Flex 9mm .078in 40mm 57cm Delivery System Angle Tip - [id number] Implanted:Qty: 1 on 07/15/2021 by Sarbjit Vaca MD at [facility] Right: Carotid [employer] [id number] 08/06/2023 SR-0940-C S / / [id number] [facility] 24-023-17 Drill-Free Maxdrive Threadlock Ts 2.3mm 17mm Self Retaining - [id number] Implanted:Qty: 6 on 09/09/2021 by Himanshu Llamas MD at [facility] N/A: Sternum [facility] 24-023-17 - / / [facility] 24-025-42 Plate Bone Titanium Football H1.8mm Sternal 6 Hole Lock Level 1 Nonsterile 2.3mm Screw Midline Mini Valve Sternotomy - [id number] Implanted:Qty: 1 on 09/09/2021 by Himanshu Llamas MD at [facility] N/A: Sternum [facility] 24-025-42 - Procedures Procedure Name Priority Date/Time Associated Diagnosis [...] PM CDT Narrative 08/15/2024 4:09 PM CDT [facility] - Department of Vascular Surgery, Vascular Laboratory [address] [place] [address] Carotid Duplex Ultrasound Report Patient Name: YAW CHAUDHRY : 1935 (88y 8m) Study Date: 08/12/2024 1:25:40 PM Gender: M Tech: Location: [facility] Ref Provider: SARBJIT VACA Quality: Adequate Order [...] LT VERT PSV 62 cm/sec FINDINGS: Performing Card Brusher: Vicky Tan RVT. Rt Common Carotid Artery: [...] Procedure Note Sarbjit Vaca MD - 08/15/2024 [facility] - Department of Vascular Surgery,Vascular Laboratory [address] [place] [address] Carotid Duplex Ultrasound Report Patient Name: YAW CHAUDHRY : 1935 (88y 8m) Study Date: 08/12/2024 1:25:40 PM Gender: M Tech: Location: [facility] Ref Provider: SARBJIT VACA Quality: Adequate Order [...] LT VERT PSV 62 cm/sec FINDINGS: Performing Card Brusher: Vicky Tan RVT. Rt Common Carotid Artery: [...] 4:08:26 PM CDT us [facility]aca MD [facility] Final Resu lt from Last 3 Months Insurance MEDICARE [facility] Address: [address] [place] [address] [employer] [place] MED[employer] [place] [employer] [place] Advance Directives For more information, please contact: [phone] * Full Code (Latest Code Status on File) Date Activated Date Inactivated Comments 09/09/2021 6:06 PM 09/16/2021 6:26 PM * Full Code Date Activated Date Inactivated Comments 07/15/2021 7:40 PM 07/16/2021 9:44 PM Care Teams Technology Architect Relationship Specialty Start Date End Date Edith Xie MD [address] [place] [address] PCP - General Internal Medicine 04/27/20 Himanshu Llamas MD [address] [place] [address] Surgeon Cardiothoracic Surgery 08/19/21 Jeffrey Taylor MD [address] [facility] [address] [place] [id number] Consulting Physician Cardiology 08/07/23
--- OUTSIDE RECORDS SUMMARY | 2024-10-01 08:15 | XMS_ITS | Referral Summary ---
Author Organization [facility] [address] [place] [address] Address [address] [place] [address] Care Team Providers Care Manager Party Name Role Phone Edith Xie MD Primary Care Provider + [phone] Himanshu Llamas MD Unavailable [phone] Jeffrey Taylor MD Unavailable Encounters Date Type Department Care Team Description 08/15/2024 Results Follow-Up [facility] Cardiology [address] [place] [phone] Theodore Currie MD Cardiology Document Scan 08/13/2024 Orders Only [facility] Health Information Management [address] [place] [address] Theodore Currie MD 08/12/2024 2:30 PM CDT Office Visit [facility] Surgery [address] [place] [address] Medical Office Building 1 [address], [place] [address] Sarbjit Vaca MD Carotid artery stenosis, symptomatic, right 08/12/2024 1:45 PM CDT Ancillary Procedure [facility] Vascular Lab [address] [facility] Office Building [address], [place] [address] Carotid artery stenosis, symptomatic, right 07/22/2024 11:00 AM CDT Office Visit [facility] Medical Group Cardiology [address] [place] [phone] Theodore Currie MD Hx of CABG (Primary Dx); Coronary artery disease involving [place] coronary artery of [place] heart without angina pectoris; Aortic valve stenosis, [...] 40 mg tabletIndicati ons:Coronary artery disease involving [place] coronary artery of [place] heart without angina pectoris TAKE ONE TABLET [...] TWICE A DAY 90 tablet 1 4 05/06/20 25 Discontin ued(Reord er) Active Problems Problem Noted Date Diagnosed Date Essential hypertension 07/22/2024 Hx of CABG 10/26/2021 History of common carotid artery stent placement 10/26/2021 Hypercholesteremia 10/26/2021 History of atrial fibrillation 10/26/2021 Urinary retention 07/16/2021 Assessment & Plan (07/16/2021 4:10 PM SENIOR PRINCIPAL ARCHITECT): Postoperative urinary retention, failed 2 void trials - Martinez catheter replace - FU with his Urologist, Dr. Flavio Stephens on Wednesday 07/19. Coronary artery disease invo lving [place] coronary artery of [place] heart without angina pectoris 06/22/2021 Overview (06/22/2021): Added automatically from request for surgery [id number] Assessment & Plan (07/15/2021 4:03 PM SENIOR PRINCIPAL ARCHITECT): During routine cardiac work up found to [...] Date Dizziness 05/12/2021 10/26/2021 Carotid stenosis, right 05/12/20212 05/2021 Assessment & Plan (07/15/2021 4:01 PM SENIOR PRINCIPAL ARCHITECT): Patient with episode of right hemispheric TIA [...] on file Legal Sex Male 2:26 AM SENIOR PRINCIPAL ARCHITECT Gender Identity Not on file Sexual Orientation [...] on file Medical Devices Implanted Type Area Skate Shop Attendant Device Identifier Shelf Expiration Date Model / Serial / Lot [employer] Sr-0940-Cs Enroute Uber Flex 9mm .078in 40mm 57cm Delivery System Angle Tip - [id number] Implanted:Qty: 1 on 07/15/2021 by Sarbjit Vaca MD at [facility] Right: Carotid [employer] [id number] 08/06/2023 SR-0940-C S / / [id number] [facility] 24-023-17 Drill-Free Maxdrive Threadlock Ts 2.3mm 17mm Self Retaining - [id number] Implanted:Qty: 6 on 09/09/2021 by Himanshu Llamas MD at [facility] N/A: Sternum [facility] 24-023-17 -91 / / [facility] 24-025-42 Plate Bone Titanium Football H1.8mm Sternal 6 Hole Lock Level 1 Nonsterile 2.3mm Screw Midline Mini Valve Sternotomy - [id number] Implanted:Qty: 1 on 09/09/2021 by Himanshu Llamas MD at [facility] N/A: Sternum [facility] 24-025-42 -09 / / Procedures Procedure [...] - Department of Vascular Surgery, Vascular Laboratory [address] [place] [address] Carotid Duplex Ultrasound Report Patient Name: YAW CHAUDHRY : 1935 (88y 8m) Study Date: 08/12/2024 1:25:40 PM Gender: M Tech: Location: [facility] Provider: SARBJIT VACA Quality: Adequate Order [...] LT VERT PSV 62 cm/sec FINDINGS: Performing Venetian Blind Maker: Vicky Tan RVT. Rt Common Carotid Artery: [...] Medicine - Department of Vascular Surgery,Vascular Laboratory [address] [place] [address] Carotid Duplex Ultrasound Report Patient Name: YAW CHAUDHRY : 1935 (88y 8m) Study Date: 08/12/2024 1:25:40 PM Gender: M Tech: Location: [facility] Provider: SARBJIT VACA Quality: Adequate Order [...] LT VERT PSV 62 cm/sec FINDINGS: Performing Venetian Blind Maker: JEMAL KnappT. Rt Common Carotid Artery: There [...] 08/15/2024 4:08:26 PM CDT Sarbjit Vaca MD [facility] PROCEDURES Final Resu lt from Last 3 Months Insurance MEDICARE [facility] [place] [address] MEDICARE [facility] MEDICARE [facility] [place] [id number] Advance Directives For more information, please contact: [phone] * Full Code (Latest Code Status on File) Date Activated Date Inactivated Comments 09/09/2021 6:06 PM 09/16/2021 6:26 PM * Full Code Date Activated Date Inactivated Comments 07/15/2021 7:40 PM 07/16/2021 9:44 PM Care Teams Manager Party Relationship Specialty Start Date End Date Edith Xie MD [address] [place] [address] PCP - General Internal Medicine 04/27/20 Himanshu Llamas MD [address] [place] [address] Surgeon Cardiothoracic Surgery 08/19/21 Jeffrey Taylor MD [address] [address] Consulting Physician Cardiology 08/07/23
--- OUTSIDE RECORDS SUMMARY | 2024-10-01 08:15 | XMS_ITS | Encounter Summary ---
Author Organization [facility] Healthcare Address [address] [place] [address] Care Team Providers Care Basket Hand Weaver Name Role Phone Edith Xie MD Primary Care Provider + [phone] Himanshu Llamas MD Unavailable [phone] Jeffrey Taylor MD Unavailable [phone] Encounter Details Date Type Department Care Team (Late st Contact Info) Description 08/15/2024 Results Follow-Up [facility] Medical Group Cardiology [address] [place] [address] Theodore Currie MD [address] [place] [address] Cardiology Document Scan Social History Tobacco Use Types Packs/Day Years [...] on file Legal Sex Male 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
--- OUTSIDE RECORDS SUMMARY | 2024-10-01 08:15 | XMS_ITS | Clinical Summary ---
Author Organization [facility] Address [address] [address] Phone Care Team Providers Care Weaver Needle Loom Name Role Phone Eidth Xie MD Primary Care Provider [phone] Allergies No known active allergies Medications losartan [...] [employer] [place] MEDICARE SUPPLEMENT Care Teams Weaver Needle Loom Relationship Specialty Start Date End Date Edith Xie MD [address] [place] [address] PCP - General Internal Medicine 09/09/20
[2024-10-01 08:28] LABS: Add Urine Microscopic? NO; Appearance Urine Clear (Clear); Bilirubin Urine Negative (Negative); Blood Urine Negative (Negative); Color Urine Light Yellow (Yellow); Glucose Urine UA Negative (Negative); Ketones Urine Negative (Negative); Leukocyte Esterase Ur Negative (Negative); Nitrate Urine Negative (Negative); Protein Urine Negative (Negative); Urobilinogen Urine 0.2 mg/dL (0.2-1.0)
== END 2024-10-01 08:12 | disposition home or self-care (01) ==
PROVIDERS: PCP Internal Medicine; Visit Provider Internal Medicine
DX: N39.0 Urinary tract infection, site not specified (principal)
CPT/HCPCS: 81003; 87086

== ENCOUNTER 2024-10-21 12:52 | Outpatient (CLI) | payer MEDICARE, SELFPAY ==
[2024-10-21 13:31] LABS: Anion Gap 1 mmol/L (4-12); Blood Urea Nitrogen 11 mg/dL (9-20); Calcium 8.7 mg/dL (8.4-10.2); Carbon Dioxide 31 mmol/L (22-30); Chloride 99 mmol/L (98-107); Estimated Glomerular Filt Rate > 60; Glucose 94 mg/dL (65-110); Osmolality Calculated 271 mOsm/kg (285-295); Potassium 4.6 mmol/L (3.4-5.0); Sodium 131 mmol/L (137-145)
--- OUTSIDE RECORDS SUMMARY | 2024-10-21 13:46 | XMS_ITS | Clinical Summary ---
Author Organization [address] Address [address] [place] [address] Care Team Providers Care Helper Driver Name Role Phone Edith Xie MD Primary Care Provider + [phone] Himanshu Llamas MD Unavailable Jeffrey Taylor MD Unavailable [phone] Allergies Active Allergy Reactions Criticality Noted Date [...] 40 mg tabletIndicatio ns:Coronary artery disease involving [place] coronary artery of [place] heart without angina pectoris TAKE ONE TABLET BY MOUTH DAILY 90 tablet 3 4 Active Additional Information Patient taking differently: 20 mg oral Daily, Reported on 08/12/2024 metoprolol tartrate (LOPRESSOR) 25 mg immediate release tablet Take 0.5 tablets (12.5 mg total) by mouth 2 (two) times a day 90 tablet 1 5 Active Active Problems Problem Noted Date Diagnosed Date Essential hypertension 07/22/2024 Hx of CABG 10/26/2021 History of common carotid artery stent placement 10/26/2021 Hypercholesteremia 10/26/2021 History of atrial fibrillation 10/26/2021 Urinary retention 07/16/2021 Assessment & Plan (07/16/2021 4:10 PM TEXTILES AND CLOTHING TEACHER): Postoperative urinary retention, failed 2 void trials - Martinez catheter replace - FU with his Urologist, Dr. Flavio Stephens on Wednesday 07/19. Coronary artery disease invo lving [place] coronary artery of [place] heart without angina pectoris 06/22/2021 Overview (06/22/2021): Added automatically from request for surgery [id number] Assessment & Plan (07/15/2021 4:03 PM TEXTILES AND CLOTHING TEACHER): During routine cardiac work up found to [...] 05/2021 Assessment & Plan (07/15/2021 4:01 PM TEXTILES AND CLOTHING TEACHER): Patient with episode of right hemispheric TIA [...] Department Care Team Description 08/15/2024 Results Follow-Up [facility] Medical Group Cardiology [address] [facility] [address] [place] [address] Theodore Currie MD Cardiology Document Scan 08/13/2024 Orders Only [facility] Health Information Management [address] [place] [address] Theodore Currie MD 08/12/2024 2:30 PM CDT Office Visit [facility] Surgery [address] [place] [address] Medical Office Building [address] [place] [phone] Sarbjit Vaca MD Carotid artery stenosis, symptomatic, right 08/12/2024 1:45 PM CDT Ancillary Procedure [facility] Vascular Lab [address] [place] [address] Medical Office Building [address], [place] [address] Carotid artery stenosis, symptomatic, right 07/22/2024 11:00 AM CDT Office Visit [facility] Medical [facility] Cardiology [address] [place] [address] Theodore Currie MD Hx of CABG (Primary Dx); Coronary artery disease involving [place] coronary artery of [place] heart without angina pectoris; Aortic valve stenosis, [...] on file Legal Sex Male 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 Gender Identity Not on file Sexual Orientation [...] 03/19/2015, 03/04/2011 Medical Devices Implanted Type Area Sharemilker Device Identifier Shelf Expiration Date Model / Serial / Lot [employer] Sr-0940-Cs Enroute Uber Flex 9mm .078in 40mm 57cm Delivery System Angle Tip - [id number] Implanted:Qty: 1 on 07/15/2021 by Sarbjit Vaca MD at [facility] Right: Carotid [employer] [id number] 08/06/2023 SR-0940-C S / / [id number] [facility] 24-023-17 Drill-Free Maxdrive Threadlock Ts 2.3mm 17mm Self Retaining - [id number] Implanted:Qty: 6 on 09/09/2021 by Himanshu Llamas MD at [facility] N/A: Sternum [facility] 24-023-17 -91 / / [facility] 24-025-42 Plate Bone Titanium Football H1.8mm Sternal 6 Hole Lock Level 1 Nonsterile 2.3mm Screw Midline Mini Valve Sternotomy - [id number] Implanted:Qty: 1 on 09/09/2021 by Himanshu Llamas MD at [facility] N/A: Sternum [facility] 24-025-42 - / / Procedures Procedure Name [...] PM CDT Narrative 08/15/2024 4:09 PM CDT [facility] - Department of Vascular Surgery, Vascular Laboratory [address] [place] [address] Carotid Duplex Ultrasound Report Patient Name: YAW CHAUDHRY : 1935 (88y 8m) Study Date: 08/12/2024 1:25:40 PM Gender: M Tech: Location: [facility] Ref Provider: SARBJIT VACA Quality: Adequate [...] LT VERT PSV 62 cm/sec FINDINGS: Performing Supervisor Blood: Vicky Tan RVT. Rt Common Carotid Artery: [...] Procedure Note Sarbjit Vaca MD - 08/15/2024 [facility] - Department of Vascular Surgery,Vascular Laboratory [address] [place] [address] Carotid Duplex Ultrasound Report Patient Name: YAW CHAUDHRY : 1935 (88y 8m) Study Date: 08/12/2024 1:25:40 PM Gender: M Tech: Location: [facility] Provider: SARBJIT VACA Quality: Adequate Order [...] LT VERT PSV 62 cm/sec FINDINGS: Performing Supervisor Blood: Vicky Tan RVT. Rt Common Carotid Artery: [...] 4:08:26 PM CDT us Sarbjit Vaca MD [facility] PROCEDURES Final Resu lt from Last 3 Months Insurance MEDICARE [facility] [employer] [place] MEDICARE [facility] [facility] [place]IC[facility] Advance Directives For more information, please contact: [phone] * Full Code (Latest Code Status on File) Date Activated Date Inactivated Comments 09/09/2021 6:06 PM 09/16/2021 6:26 PM * Full Code Date Activated Date Inactivated Comments 07/15/2021 7:40 PM 07/16/2021 9:44 PM Care Teams Helper Driver Relationship Specialty Start Date End Date Edith Xie MD [address] [place] [address] PCP - General Internal Medicine 04/27/20 Himanshu Llamas MD [address] [place] [address] Surgeon Cardiothoracic Surgery 08/19/21 Jeffrey Taylor MD [address] [place] [address] [place] [address] [place] [address] Consulting Physician Cardiology 08/07/23
--- OUTSIDE RECORDS SUMMARY | 2024-10-21 13:46 | XMS_ITS | Referral Summary ---
Author Organization [facility] [id number] [place] [address] Address [address] [place] [address] Care Team Providers Care Sailor Name Role Phone Edith Xie MD Primary Care Provider + [phone] Himanshu Llamas MD Unavailable [phone] Jeffrey Taylor MD Unavailable Encounters Date Type Department Care Team Description 08/15/2024 Results Follow-Up [facility] Medical Group Cardiology [address] [place] [id number] Theodore Currie MD Cardiology Document Scan 08/13/2024 Orders Only [facility] Health Information Management [address] [place] [address] Theodore Currie MD 08/12/2024 2:30 PM CDT Office Visit [facility] Surgery [address] [place] [address] Medical Office Building [address], [place] [address] Sarbjit Vaca MD Carotid artery stenosis, symptomatic, right 08/12/2024 1:45 PM CDT Ancillary Procedure [facility] Vascular Lab [address] [facility] Office Building [address], [place] [address] Carotid artery stenosis, symptomatic, right 07/22/2024 11:00 AM CDT Office Visit [facility] Medical Group Cardiology [address] [place] [phone] Theodore Currie MD Hx of CABG (Primary Dx); Coronary artery disease involving [place] coronary artery of [place] heart without angina pectoris; Aortic valve stenosis, [...] 40 mg tabletIndicatio ns:Coronary artery disease involving [place] coronary artery of [place] heart without angina pectoris TAKE ONE TABLET [...] 07/16/2021 Assessment & Plan (07/16/2021 4:10 PM DEPUTY PROSECUTING ATTORNEY): Postoperative urinary retention, failed 2 void trials - Martinez catheter replace - FU with his Urologist, Dr. Flavio Stephens on Wednesday 07/19. Coronary artery disease invo lving [place] coronary artery of [place] heart without angina pectoris 06/22/2021 Overview (06/22/2021): Added automatically from request for surgery [id number] Assessment & Plan (07/15/2021 4:03 PM DEPUTY PROSECUTING ATTORNEY): During routine cardiac work up found to [...] 05/2021 Assessment & Plan (07/15/2021 4:01 PM DEPUTY PROSECUTING ATTORNEY): Patient with episode of right hemispheric TIA [...] on file Legal Sex Male 2:26 AM DEPUTY PROSECUTING ATTORNEY Gender Identity Not on file Sexual Orientation [...] on file Medical Devices Implanted Type Area Environmental Health Physician Device Identifier Shelf Expiration Date Model / Serial / Lot Toopher Sr-0940-Cs Enroute Uber Flex 9mm .078in 40mm 57cm Delivery System Angle Tip - [id number] Implanted:Qty: 1 on 07/15/2021 by Sarbjit Vaca MD at [facility] Right: Carotid [employer] [id number] 08/06/2023 SR-0940-C S / / [id number] [facility] 24-023-17 Drill-Free Maxdrive Threadlock Ts 2.3mm 17mm Self Retaining - [id number] Implanted:Qty: 6 on 09/09/2021 by Himanshu Llamas MD at [facility] N/A: Sternum [facility] 24-023-17 -91 / / [facility] 24-025-42 Plate Bone Titanium Football H1.8mm Sternal 6 Hole Lock Level 1 Nonsterile 2.3mm Screw Midline Mini Valve Sternotomy - [id number] Implanted:Qty: 1 on 09/09/2021 by Himanshu Llamas MD at [facility] N/A: Sternum Cristina Anand 24-025-42 -09 / / Procedures Procedure Name [...] PM CDT Narrative 08/15/2024 4:09 PM CDT [facility] - Department of Vascular Surgery, Vascular Laboratory [address] [place] [address] Carotid Duplex Ultrasound Report Patient Name: YAW CHAUDHRY : 1935 (88y 8m) Study Date: 08/12/2024 1:25:40 PM Gender: M Tech: Location: [facility] Provider: SARBJIT VACA Quality: Adequate Order [...] LT VERT PSV 62 cm/sec FINDINGS: Performing Steamtable Attendant Railroad: Vicky Tan RVT. Rt Common Carotid Artery: [...] Procedure Note Sarbjit Vaca MD - 08/15/2024 [facility] - Department of Vascular Surgery,Vascular Laboratory [address] [place] [address] Carotid Duplex Ultrasound Report Patient Name: YAW CHAUDHRY : 1935 (88y 8m) Study Date: 08/12/2024 1:25:40 PM Gender: M Tech: Location: [facility] Provider: SARBJIT VACA Quality: Adequate Order [...] LT VERT PSV 62 cm/sec FINDINGS: Performing Steamtable Attendant Railroad: Vicky Tan RVT. Rt Common Carotid Artery: [...] 08/15/2024 4:08:26 PM CDT Sarbjit Vaca MD [facility] PROCEDURES Final Resu lt from Last 3 Months Insurance MEDICARE [facility] MEDICARE [employer] MEDICARE [employer] [place] Advance Directives For more information, please contact: [phone] * Full Code (Latest Code Status on File) Date Activated Date Inactivated Comments 09/09/2021 6:06 PM 09/16/2021 6:26 PM * Full Code Date Activated Date Inactivated Comments 07/15/2021 7:40 PM 07/16/2021 9:44 PM Care Teams Sailor Relationship Specialty Start Date End Date Edith Xie MD [address] [place] [address] PCP - General Internal Medicine 04/27/20 Himanshu Llamas MD [address] [place] [address] Surgeon Cardiothoracic Surgery 08/19/21 Jeffrey Taylor MD [address] [place] [address] [facility] C, [place] [address] [place] [address] Consulting Physician Cardiology 08/07/23
--- OUTSIDE RECORDS SUMMARY | 2024-10-21 13:46 | XMS_ITS | Clinical Summary ---
Author Organization [facility] Address [address] [place] [address] Phone Care Team Providers Care Receptionist/Telephone Operator Name Role Phone Edith Xie MD Primary Care Provider [phone] Allergies No known active allergies Medications losartan [...] [employer] MEDICARE SUPPLEMENT Care Teams Receptionist/Telephone Operator Relationship Specialty Start Date End Date Edith Xie MD [address] [place] [address] PCP - General Internal Medicine 09/09/20
--- OUTSIDE RECORDS SUMMARY | 2024-10-21 13:46 | XMS_ITS | CONTINUITY OF CARE DOCUMENT ---
Author Name januaryjanuary Address Unknown Organization [facility] Address [address] [facility] [address] [place] [address] Phone [phone] Care Team Providers Care Grounds And Nursery Specialist Name Role Phone Louie SAVAGE, Gloria Unavailable [phone] DONNA SAVAGE, LEXUS Norton Unavailable JONNATHAN SAVAGE, ELISSA Unavailable INSURANCE PROVIDERS Payer name Policy type / Coverage type Carmel red democrat ID [facility] Blue [facility] [id number] [place] Medicare [id number]
== END 2024-10-21 12:53 | disposition home or self-care (01) ==
LOC: CHSLAB 12:55
PROVIDERS: PCP Internal Medicine; Visit Provider Internal Medicine
DX: E87.1 Hypo-osmolality and hyponatremia (principal)
CPT/HCPCS: 36415; 80048

== ENCOUNTER 2024-11-01 13:56 | Emergency (ER) | payer MEDICARE, OTHER, SELFPAY ==
--- NOTE | ~2024-11-01 | CT_ITS ---
CT brain wo con Ordering provider: Naresh Vidales MD History: 88 years Male with . Anterior head injury w/ laceration above Lt. brow . Comparison: April 16, 2021 Technique: CT of the head without contrast. Radiation reduction technique utilized The dose-length pr oduct was 681 mGy-cm. FINDINGS: BRAIN PARENCHYMA AND CSF SPACES: Mild leukoaraiosis and diffuse cortical atrophy. Mild atheromatous d isease. No midline shift, mass effect or hemorrhage. The brain parenchyma and CSF spaces are otherwi se normal. VISUALIZED PARANASAL SINUSES: Well aerated. MASTOIDS: Well aerated. BONES: The bones appear intact. SOFT TISSUES: Visualized nasopharynx is normal. Small hematoma seen in the left frontal scalp. Other diggs, Superficial soft tissues are normal. IMPRESSION: No acute intracranial findings. Reviewed, dictated and finalized at location A.
[2024-11-01 13:56] VITALS: BP 162/79; PULSE 91; RESP 16; TEMP 36.2; O2SAT 98
--- NOTE | 2024-11-01 14:03 | ED.WOUNDLAC ---
HPI - Wound/Laceration General Chief Complaint: Wound/Laceration Stated Complaint: forehead laceration Time Seen by Provider: 11/01/24 14:02 Source: patient Mode of arrival: ambulatory Limitations: no limitations History of Present Illness HPI narrative: patient is an 88-year-old male with a left forehead laceration after the attic door fell onto his head. He was trying to close the attic fan and door with a cane and it came back and hit him in the head. no LOC. No nausea vomiting. No other injuries. No neck pain. Onset (ago): hour(s) ( One) Location: face ( left frontal) Place: home Patient tetanus UTD: No Context: accidental Associated symptoms: none Treatments prior to arrival: other ( none) Related Data Home Medications ?Medication ?Instructions ?Recorded ?Confirmed ?Last Taken ?Type tamsulosin 0.4 mg capsule (Flomax) 0.4 mg PO DAILY 07/24/21 04/06/22 Unknown History acetaminophen 500 mg tablet 500 mg PO Q6H PRN 03/10/22 04/06/22 Unknown History (Tylenol Extra Strength) multivitamin (Daily Multi-Vitamin 1 tablet PO DAILY 03/10/22 04/06/22 Unknown History tablet) Bifidobacterium infantis 4 mg 4 mg PO DAILY 08/16/23 Unknown History capsule atorvastatin 40 mg tablet 40 mg PO DAILY 08/16/23 Unknown History cetirizine 10 mg capsule (Zyrtec) 10 mg PO DAILY PRN 08/16/23 Unknown History docusate sodium 100 mg capsule 100 mg PO DAILY 08/16/23 Unknown History metoprolol tartrate 25 mg tablet 12.5 mg PO BID 08/16/23 Unknown History Allergies Allergy/AdvReac Type Severity Reaction Status Date / Time adhesive Allergy Unknown Rash Verified 11/01/24 14:20 bee venom protein (honey bee) Allergy Unknown swelling, Verified 11/01/24 14:20 SOB DEMAR Inhibitors Allergy Unknown Verified 11/01/24 14:20 oxycodone AdvReac Nausea Verified 11/01/24 14:20 Review of Systems Review of Systems: All systems reviewed & are unremarkable except as noted in HPI and below Constitutional: Constitutional: Reports no additional constitutional complaints Eyes: Eyes: Reports no additional eye complaints ENT: Reports system reviewed and no additional complaints, except as documented Cardiovascular: Cardiovascular: Reports no additional cardiovascular complaints Respiratory: Respiratory: Reports no additional respiratory complaints Gastrointestinal: Gastrointestinal: Reports no additional gastrointestinal complaints Genitourinary: Genitourinary: Reports no additional male genitourinary complaints Musculoskeletal: Musculoskeletal: Reports no additional musculoskeletal complaints Integumentary/Breasts: Skin/Breast: Reports system reviewed and no additional complaints, except as docu Neurologic: Reports system reviewed and no additional complaints, except as documented Psychiatric: Psychiatric: Reports no additional psychiatric complaints Endocrine: Endocrine: Reports no additional endocrine complaints Hematologic/Lymphatic: Hematologic/Lymphatic: Reports no additional hematologic/lymphatic complaints Allergic/Immunologic: Allergic/Immunologic: Reports no additional allergic/immunologic complaints [facility] Past Medical History Medical History UTI (urinary tract infection) Carotid artery disease S/p transcarotid artery revascularization 07/15/2021 History of brachytherapy 2009 Prostate cancer Coronary artery disease Urinary retention Aortic stenosis 04/2021 echo: EF 77%, moderate , SRINIVASAN 1.5 cm2, mean grad 17 mmHg History of stroke 04/16/2021 right frontal stroke, full recovery. Hypertension GERD (gastroesophageal reflux disease) Sessile colonic polyp Surgical History Surgical History History of hip surgery in early s, due to ligament injury History of heart surgery September 2021 Previous back surgery Times 2 History of knee replacement left Family History Family History Mother Heart disease age 86 Cerebrovascular accident Father Malignant neoplasm of prostate Sibling Aortic valve replaced Malignant neoplasm of prostate Social History Social History Social History: Mr. Polanco lives at home with his . He is independent in all his daily activities. He has been retired for 23 years from [employer]. He states he has been in good health all his life. He designates his as his surrogate decision maker and would like to be a full code. Smoking status: Never smoker Second hand tobacco smoke exposure: No Additional smoking assessment comments: Smoked 1 cigar/day for 5 yrs over 35 yrs ago Alcohol intake: former Substance use: never Substance use type: does not use Do You Feel Safe in your Home?: Yes Lack of Transportation: No Lack of Food: Never True Current Housing: I Have Housing Concerned About Future Housing: No Difficulty Paying Gas/Electric Bills: No Difficulty Paying for Meds: No Currently Unemployed: No Education: High School Diploma/GED Difficulty w/ Childcare or Family Care: No Living arrangements: with family Occupation/Education: retired Spiritual care concerns: No Exam Const: General: healthy appearing Nutritional Appearance: well nourished Orientation/consciousness: patient oriented x3 HENMT: Head: normal to inspection Ears: external ears normal Face/Nose/Sinus: Normal external nose present Eyes: Conjunctivae: conjunctivae normal Pupils: Equal, round and reactive pupils present EOM: EOMs intact bilaterally Neck: Neck: normal visual inspection Chest: Chest palpation & inspection: normal inspection of the chest Resp: Effort & Inspection: normal respiratory effort and not labored Auscultation: clear to auscultation bilaterally and no crackles Cardio: Rate: regular rate Rhythm: regular rhythm Heart sounds: no murmurs GI: Inspection: non-distended GI Palp: Yes Soft to palpation and No Tenderness to palpation present (GI) Auscultation: normal bowel sounds Back/Spine/Pelvis: Back: no CVA tenderness Skin: General skin exam: normal color Rashes: no rashes Wounds: wound noted Other: left frontal forehead/ scalp has a curve laceration at 3 cm with light bleeding and no infection Neuro: General: patient oriented x3, moves all extremities, no meningeal signs, no focal motor deficits and CN's II-XI intact bilaterally Cranial nerves: Yes Nystagmus not present Speech: normal speech Gait exam (Neuro): Normal gait present Other: GCS is 15 Extrem: General: normal to inspection Psych: Mental Status: mental status grossly normal Affect: normal affect Attitude: cooperative Course Vital Signs Vital signs: Vital Signs Temperature 36.2 C L 11/01/24 13:56 Pulse Rate 91 11/01/24 13:56 Respiratory Rate 16 11/01/24 13:56 Blood Pressure 162/79 H 11/01/24 13:56 Pulse Oximetry 98 11/01/24 13:56 Oxygen Delivery Room Air 11/01/24 13:56 Temperature 36.2 C L 11/01/24 13:56 Pulse Rate 91 11/01/24 13:56 Respiratory Rate 16 11/01/24 13:56 Blood Pressure 162/79 H 11/01/24 13:56 Pulse Oximetry 98 11/01/24 13:56 Oxygen Delivery Room Air 11/01/24 13:56 Procedures Other Procedure Procedure 1: Other Procedure: Left frontal scalp forehead wound repair: Area cleaned with chlorhexidine/Betadine, area anesthetized with 5 cc of lidocaine, area re cleaned, 4-0 nylon PS 3 with 9 running sutures, antibiotic ointment and a clean bandage placed, patient tolerated procedure well and no complications MDM - Wound/Laceration MDM Narrative Medical decision making narrative: patient is an 88-year-old male with a left frontal laceration from an attic fanned door. We will suture close this area. We will give him a tetanus shot. Imaging Data Attestation: I personally reviewed and interpreted this imaging study as follows: Radiologist's impression: CT scan of the brain is negative for acute process Discharge Plan Discharge Clinical Impression: Forehead laceration Qualifiers: Encounter type: initial encounter Qualified Code(s): S01.81XA - Laceration without foreign body of other part of head, initial encounter Patient Disposition: Home Condition: Stable Instructions: Laceration (ED), Care For Your Stitches (ED) Additional Instructions: please follow-up with the primary doctor in the next week. Have sutures removed at follow-up in 7-10 days. Use antibiotic ointment to the area daily. Patient Language: Arabic Prescriptions: No Action multivitamin [Daily Multi-Vitamin] Tablet 1 tablet PO DAILY acetaminophen [Tylenol Extra Strength] 500 mg tablet 500 mg PO Q6H PRN atorvastatin 40 mg tablet 40 mg PO DAILY Bifidobacterium infantis 4 mg capsule 4 mg PO DAILY docusate sodium 100 mg capsule 100 mg PO DAILY metoprolol tartrate 25 mg tablet 12.5 mg PO BID Zyrtec 10 mg capsule 10 mg PO DAILY PRN tamsulosin [Flomax] 0.4 mg Capsule 0.4 mg PO DAILY Patient Comments: @ 1700 sodium chloride 1 gram Tablet 1,000 mg PO BIDWMEAL Qty: 0 0RF aspirin [Children's Aspirin] 81 mg Tablet,Chewable 81 mg PO DAILY@0800 Qty: 0 0RF Follow-up/Referrals: Edith Xie MD [Primary Care Provider] - Time of Disposition: 15:20
[2024-11-01] MEDS: NEOMYCIN/POLYMYXIN/BACITRACIN OINTMENT PACKET 1 PACKET TOPICAL (14:23)
[2024-11-01] MEDS: TETANUS,DIPHTHERIA,AC PERTUSSIS ADULT 0.5 ML (ADACEL) IM (14:24)
[2024-11-01] MEDS: LIDOCAINE 1% LOCAL INJ 10 ML VIAL INFILTRATE (14:24)
== END 2024-11-01 15:23 | disposition home or self-care (01) ==
PROVIDERS: Emergency Provider Emergency Medicine; PCP Internal Medicine
DX: S01.81XA Laceration without foreign body of other part of head, initial encounter (principal); I25.10 Atherosclerotic heart disease of native coronary artery without angina pectoris; Z85.46 Personal history of malignant neoplasm of prostate; Z86.73 Personal history of transient ischemic attack (TIA), and cerebral infarction without residual deficits; I10 Essential (primary) hypertension; Z23 Encounter for immunization; W22.8XXA Striking against or struck by other objects, initial encounter
CPT/HCPCS: 12001; 70450; 90471; 90715; 99284; J2003

== ENCOUNTER 2024-11-11 08:20 | Outpatient (CLI) | payer MEDICARE, OTHER, SELFPAY ==
--- OUTSIDE RECORDS SUMMARY | 2024-11-11 08:23 | XMS_ITS | Clinical Summary ---
Author Organization [facility] Address [address] [address] Phone Care Team Providers Care Tenter Feeder Name Role Phone Edith Xie MD Primary Care Provider [phone] Allergies No known active allergies Medications losartan [...] / Low and Medium Risk (1 of 2 - PCV) 11/29/1987 Influenza Vaccine (#1) 2025 01/20/2021 Insurance MEDICARE [employer] MEDICARE SUPPLEMENT Care Teams Tenter Feeder Relationship Specialty Start Date End Date Edith Xie MD [address] [place] [address] PCP - General Internal Medicine 09/09/20
--- OUTSIDE RECORDS SUMMARY | 2024-11-11 08:23 | XMS_ITS | Referral Summary ---
Author Organization [address] Address [address] [place] [address] Care Team Providers Care Library Consultant Name Role Phone Edith Xie MD Primary Care Provider [phone] Himanshu Llamas MD Unavailable [phone] Jeffrey Taylor MD Unavailable Encounters Date Type Department Care Team Description 08/15/2024 Results Follow-Up [facility] Medical Group Cardiology [address] [place] [address] Theodore Currie MD Cardiology Document Scan 08/13/2024 Orders Only [facility] Health Information Management [address] [place] [address] Theodore Currie MD 08/12/2024 2:30 PM CDT Office Visit [facility] Surgery [address] [place] [address] Medical Office Building [address] [place] [address] Sarbjit Vaca MD Carotid artery stenosis, symptomatic, right 08/12/2024 1:45 PM CDT Ancillary Procedure [facility] Vascular Lab [address] [place] [address] Office Building [address] [place] [address] Carotid artery stenosis, symptomatic, right from Last 3 Months Allergies Active Allergy [...] 40 mg tabletIndicatio ns:Coronary artery disease involving [place] coronary artery of [place] heart without angina pectoris TAKE ONE TABLET [...] 07/16/2021 Assessment & Plan (07/16/2021 4:10 PM REINFORCEMENT MAKER): Postoperative urinary retention, failed 2 void trials - Martinez catheter replace - FU with his Urologist, Dr. Flavio Stephens on Wednesday 07/19. Coronary artery disease invo lving [place] coronary artery of [place] heart without angina pectoris 06/22/2021 Overview (06/22/2021): Added automatically from request for surgery [id number] Assessment & Plan (07/15/2021 4:03 PM REINFORCEMENT MAKER): During routine cardiac work up found to [...] 05/12/202110/07 Assessment & Plan (07/15/2021 4:01 PM REINFORCEMENT MAKER): Patient with episode of right hemispheric TIA [...] on file Legal Sex Male 2:26 AM REINFORCEMENT MAKER Gender Identity Not on file Sexual Orientation [...] on file Medical Devices Implanted Type Area Shade Hanger Device Identifier Shelf Expiration Date Model / Serial / Lot [employer] Sr-0940-Cs Enroute Uber Flex 9mm .078in 40mm 57cm Delivery System Angle Tip - [id number] Implanted:Qty: 1 on 07/15/2021 by Sarbjit Vaca MD at [facility] Right: Carotid [employer] [id number] 08/06/2023 SR-0940-C S / / [id number] [facility] 24-023-17 Drill-Free Maxdrive Threadlock Ts 2.3mm 17mm Self Retaining - [id number] Implanted:Qty: 6 on 09/09/2021 by Himanshu Llamas MD at [facility] N/A: Sternum [facility] 24-023-17 -91 / / [facility] -42 Plate Bone Titanium Football H1.8mm Sternal 6 Hole Lock Level 1 Nonsterile 2.3mm Screw Midline Mini Valve Sternotomy - [id number] Implanted:Qty: 1 on 09/09/2021 by Himanshu Llamas MD at [facility] N/A: Sternum [facility] 24-025-42 -09 / / Procedures Procedure [...] PM CDT Narrative 08/15/2024 4:09 PM CDT [facility] - Department of Vascular Surgery, Vascular Laboratory [address] [place] [address] Carotid Duplex Ultrasound Report Patient Name: YAW CHAUDHRY : 1935 (88y 8m) Study Date: 08/12/2024 1:25:40 PM Gender: M Tech: Location: [facility] Provider: SARBJIT VACA Quality: Adequate Order [...] LT VERT PSV 62 cm/sec FINDINGS: Performing Shipmaster: Vicky Tan RVT. Rt Common Carotid Artery: [...] Procedure Note Sarbjit Vaca MD - 08/15/2024 [facility] - Department of Vascular Surgery,Vascular Laboratory [address] [place] [address] Carotid Duplex Ultrasound Report Patient Name: YAW CHAUDHRY : 1935 (88y 8m) Study Date: 08/12/2024 1:25:40 PM Gender: M Tech: Location: [facility] Provider: SARBJIT VACA Quality: Adequate Order [...] LT VERT PSV 62 cm/sec FINDINGS: Performing Shipmaster: Vicky Tan RVT. Rt Common Carotid Artery: [...] 4:08:26 PM CDT us Sarbjit Vaca MD [facility] PROCEDURES Final Resu lt from Last 3 Months Insurance MEDICARE [employer] [employer] [place] MEDICARE [facility] MEDICARE [place] [employer] [place] Advance Directives For more information, please contact: [phone] * Full Code (Latest Code Status on File) Date Activated Date Inactivated Comments 09/09/2021 6:06 PM 09/16/2021 6:26 PM * Full Code Date Activated Date Inactivated Comments 07/15/2021 7:40 PM 07/16/2021 9:44 PM Care Teams Library Consultant Relationship Specialty Start Date End Date Edith Xie MD [address] [place] [address] PCP - General Internal Medicine 04/27/20 Himanshu Llamas MD [address] [place] [address] Surgeon Cardiothoracic Surgery 08/19/21 Jeffrey Taylor MD [address] [place], [place] [place], [place] [id number] Consulting Physician Cardiology 08/07/23
--- OUTSIDE RECORDS SUMMARY | 2024-11-11 08:23 | XMS_ITS | Clinical Summary ---
Author Organization [address] Address [address] [place] [address] Care Team Providers Care Plastic Mould Maker Name Role Phone Edith Xie MD Primary Care Provider + [phone] Himanshu Llamas MD Unavailable Jeffrey Taylor MD Unavailable [phone] Allergies Active Allergy Reactions Criticality Noted Date [...] 40 mg tabletIndicatio ns:Coronary artery disease involving [place] coronary artery of [place] heart without angina pectoris TAKE ONE [...] 07/16/2021 Assessment & Plan (07/16/2021 4:10 PM WIRE SPIRAL BINDER): Postoperative urinary retention, failed 2 void trials - Martinez catheter replace - FU with his Urologist, Dr. Flavio Stephens on Wednesday 07/19. Coronary artery disease invo lving [place] coronary artery of [place] heart without angina pectoris 06/22/2021 Overview (06/22/2021): Added automatically from request for surgery [id number] Assessment & Plan (07/15/2021 4:03 PM WIRE SPIRAL BINDER): During routine cardiac work up found to [...] 05/2021 Assessment & Plan (07/15/2021 4:01 PM WIRE SPIRAL BINDER): Patient with episode of right hemispheric TIA [...] Department Care Team Description 08/15/2024 Results Follow-Up [facility] Cardiology [address] [place] [id number] Theodore Currie MD Cardiology Document Scan 08/13/2024 Orders Only [facility] Health Information Management [address] [place] [address] Theodore Currie MD 08/12/2024 2:30 PM CDT Office Visit [facility] Surgery [address] [place] [address] Medical Office Building [address], [place] [address] Sarbjit Vaca MD Carotid artery stenosis, symptomatic, right 08/12/2024 1:45 PM CDT Ancillary Procedure [facility] Vascular Lab [address] [place] [address] Medical Office Building [address], [place] [address] Carotid artery stenosis, symptomatic, right from Last 3 Months Surgical History Surgery Date Site/Laterality Comments SHOULDER SURGERY Right BACK SURGERY lumbar decompression CATARACT EXTRACTION Right HIP SURGERY Right KNEE ARTHROPLASTY Left CAROTID ARTERY ANGIOPLASTY Right Medical History Medical History Date Comments Allergic rhinitis Hypertension Sinusitis Neoplasm of prostate brachy naz mark Hx of colonic polyps Coronary artery disease GERD (gastroesophageal reflux disease) Sleep apnea CVA (cerebral vascular accident) ([facility]) 04/2021 Vertigo improved since e liquis discontinued [...] on file Legal Sex Male 2:26 AM WIRE SPIRAL BINDER Gender Identity Not on file Sexual Orientation [...] Fall Risk Assessment 09/16/2022 09/16/2021 Covid-19 Vaccine (2023-2 5 season) 2024 04/08/2021, 07/01/2020, 06/10/2020 DTaP/Tdap/Td Vaccine (2 - Td or Tdap) 12/22/2024 12/22/2014, 02/28/1995 Influenza Vaccine (Season Ended) 2025 01/20/2021, 01/07/2021, 02/15/2019, Additional history exists Pneumococcal vaccine 65+ Completed 019, 03/19/2015, 03/04/2011 Medical Devices Implanted Type Area Automotive Refinisher Device Identifier Shelf Expiration Date Model / Serial / Lot [employer] Sr-0940-Cs Enroute Uber Flex 9mm .078in 40mm 57cm Delivery System Angle Tip - [id number] Implanted:Qty: 1 on 07/15/2021 by Sarbjit Vaca MD at [facility] Right: Carotid [employer] [id number] 08/06/2023 SR-0940-C S / / [id number] [facility] 24-023-17 Drill-Free Maxdrive Threadlock Ts 2.3mm 17mm Self Retaining - [id number] Implanted:Qty: 6 on 09/09/2021 by Himanshu Llamas MD at N/A: Sternum [facility] 24-023-17 -91 / / [facility] 025-42 Plate Bone Titanium Football H1.8mm Sternal 6 Hole Lock Level 1 Nonsterile 2.3mm Screw Midline Mini Valve Sternotomy - [id number] Implanted:Qty: 1 on 09/09/2021 by Himanshu Llamas MD at N/A: Sternum [facility] 24-025-42 -09 / / Procedures Procedure Name [...] PM CDT Narrative 08/15/2024 4:09 PM CDT [facility] - Department of Vascular Surgery, Vascular Laboratory [address] [place] [address] Carotid Duplex Ultrasound Report Patient Name: NESHA CHAUDHRY : 1935 (88y 8m) Study Date: 08/12/2024 1:25:40 PM Gender: M Tech: Location: [facility] Ref Provider: SARBJIT VACA Quality: Adequate [...] LT VERT PSV 62 cm/sec FINDINGS: Performing Fisher Reef Net: Vicky Tan RVT. Rt Common Carotid Artery: [...] Procedure Note Sarbjit Vaca MD - 08/15/2024 [facility] - Department of Vascular Surgery,Vascular Laboratory [address] [place] [address] Carotid Duplex Ultrasound Report Patient Name: NESHA CHAUDHRY : 1935 (88y 8m) Study Date: 08/12/2024 1:25:40 PM Gender: M Tech: Location: [facility] Ref Provider: SARBJIT VACA Quality: Adequate [...] LT VERT PSV 62 cm/sec FINDINGS: Performing Fisher Reef Net: Vicky Tan RVT. Rt Common Carotid Artery: [...] 08/15/2024 4:08:26 PM CDT Sarbjit Vaca MD [facility] PROCEDURES Final Resu lt from Last 3 Months Insurance MEDICARE [facility] MEDICARE [facility] MEDICARE [facility] Advance Directives For more information, please contact: [phone] * Full Code (Latest Code Status on File) Date Activated Date Inactivated Comments 09/09/2021 6:06 PM 09/16/2021 6:26 PM * Full Code Date Activated Date Inactivated Comments 07/15/2021 7:40 PM 07/16/2021 9:44 PM Care Teams Plastic Mould Maker Relationship Specialty Start Date End Date Edith Xie MD [address] [place] [address] PCP - General Internal Medicine 04/27/20 Himanshu Llamas MD [address] [place] [address] Surgeon Cardiothoracic Surgery 08/19/21 Jeffrey Taylor MD [address], [address] [place] [address] Consulting Physician Cardiology 08/07/23
[2024-11-11 08:52] LABS: Anion Gap 3 mmol/L (4-12); Blood Urea Nitrogen 13 mg/dL (9-20); Calcium 8.7 mg/dL (8.4-10.2); Carbon Dioxide 30 mmol/L (22-30); Chloride 97 mmol/L (98-107); Estimated Glomerular Filt Rate > 60; Glucose 92 mg/dL (65-110); Osmolality Calculated 270 mOsm/kg (285-295); Potassium 4.1 mmol/L (3.4-5.0); Sodium 130 mmol/L (137-145)
== END 2024-11-11 08:21 | disposition home or self-care (01) ==
PROVIDERS: PCP Internal Medicine; Visit Provider Internal Medicine
DX: E87.1 Hypo-osmolality and hyponatremia (principal)
CPT/HCPCS: 36415; 80048

== ENCOUNTER 2024-11-19 13:41 | Outpatient (CLI) | payer MEDICARE, OTHER, SELFPAY ==
--- OUTSIDE RECORDS SUMMARY | 2024-11-19 13:45 | XMS_ITS | Referral Summary ---
Author Organization [address] Address [address] [place] [address] Care Team Providers Care Hand Drawer In Name Role Phone Edith Xie MD Primary Care Provider + [phone] Himanshu Llamas MD Unavailable Jeffrey Taylor MD Unavailable [phone] Allergies Active Allergy Reactions Criticality Noted Date [...] 40 mg tabletIndicatio ns:Coronary artery disease involving [place] coronary artery of [place] heart without angina pectoris TAKE ONE TABLET [...] 07/16/2021 Assessment & Plan (07/16/2021 4:10 PM CAR HOSTLER): Postoperative urinary retention, failed 2 void trials - Martinez catheter replace - FU with his Urologist, Dr. Flavio Stephens on Wednesday 07/19. Coronary artery disease invo lving [place] coronary artery of [place] heart without angina pectoris 06/22/2021 Overview (06/22/2021): Added automatically from request for surgery [id number] Assessment & Plan (07/15/2021 4:03 PM CAR HOSTLER): During routine cardiac work up found to [...] 05/2021 Assessment & Plan (07/15/2021 4:01 PM CAR HOSTLER): Patient with episode of right hemispheric TIA [...] on file Legal Sex Male 2:26 AM CAR HOSTLER Gender Identity Not on file Sexual Orientation [...] on file Medical Devices Implanted Type Area Pattern Cutter Device Identifier Shelf Expiration Date Model / Serial / Lot [facility] Sr-0940-Cs Enroute Uber Flex 9mm .078in 40mm 57cm Delivery System Angle Tip - [id number] Implanted:Qty: 1 on 07/15/2021 by Sarbjit Robertson MD at [facility] Right: Carotid [employer] [id number] 08/06/2023 SR-0940-C S / / [id number] [facility] 24-023-17 Drill-Free Maxdrive Threadlock Ts 2.3mm 17mm Self Retaining - [id number] Implanted:Qty: 6 on 09/09/2021 by Himanshu Llamas MD at [facility] N/A: Sternum [place] --17 -91 / / [place] Plate Bone Titanium Football H1.8mm Sternal 6 Hole Lock Level 1 Nonsterile 2.3mm Screw Midline Mini Valve Sternotomy - [id number] Implanted:Qty: 1 on 09/09/2021 by Himanshu Llamas MD at [facility] N/A: Sternum [place] - / / Insurance MEDICARE [facility] Address: [facility] [address] [place] [address] [facility] MEDICARE [employer] [place] MEDICARE [place] [address] Advance Directives For more information, please contact: [phone] * Full Code (Latest Code Status on File) Date Activated Date Inactivated Comments 09/09/2021 6:06 PM 09/16/2021 6:26 PM * Full Code Date Activated Date Inactivated Comments 07/15/2021 7:40 PM 07/16/2021 9:44 PM Care Teams Hand Drawer In Relationship Specialty Start Date End Date Edith Xie MD [address] [place] [address] PCP - General Internal Medicine 04/27/20 Himanshu Llamas MD [address] [place] [address] Surgeon Cardiothoracic Surgery 08/19/21 Jeffrey Taylor MD [address], [address] [place] [address] Consulting Physician Cardiology 08/07/23
--- OUTSIDE RECORDS SUMMARY | 2024-11-19 13:45 | XMS_ITS | Clinical Summary ---
Author Organization [facility] Address [address] [address] Phone Care Team Providers Care Senior Analyst Market Intelligence Name Role Phone Edith Xie MD Primary Care Provider [phone] Allergies No known active allergies Medications losartan [...] [employer] [place] MEDICARE SUPPLEMENT Care Teams Senior Analyst Market Intelligence Relationship Specialty Start Date End Date Edith Xie MD [address] [place] [address] PCP - General Internal Medicine 09/09/20
--- OUTSIDE RECORDS SUMMARY | 2024-11-19 13:45 | XMS_ITS | Clinical Summary ---
Author Organization [address] Address [address] [place] [address] Care Team Providers Care Tobacco Sample Puller Name Role Phone Edith Xie MD Primary Care Provider + [phone] Himanshu Llamas MD Unavailable Jeffrey Taylor MD Unavailable [phone] Allergies Active Allergy Reactions Criticality Noted Date [...] 40 mg tabletIndicatio ns:Coronary artery disease involving [place] coronary artery of [place] heart without angina pectoris TAKE ONE TABLET [...] 07/16/2021 Assessment & Plan (07/16/2021 4:10 PM ROUTE INSPECTOR): Postoperative urinary retention, failed 2 void trials - Martinez catheter replace - FU with his Urologist, Dr. Flavio Stephens on Wednesday 07/19. Coronary artery disease invo lving [place] coronary artery of [place] heart without angina pectoris 06/22/2021 Overview (06/22/2021): Added automatically from request for surgery [id number] Assessment & Plan (07/15/2021 4:03 PM ROUTE INSPECTOR): During routine cardiac work up found to [...] 05/2021 Assessment & Plan (07/15/2021 4:01 PM ROUTE INSPECTOR): Patient with episode of right hemispheric TIA [...] sinusitis 05/28/2020 10/26/2021 Chronic pansinusitis 05/12/2020 022 Surgical History Surgery Date Site/Laterality Comments SHOULDER SURGERY Right BACK SURGERY lumbar decompression CATARACT EXTRACTION Right HIP SURGERY Right KNEE ARTHROPLASTY Left CAROTID ARTERY ANGIOPLASTY Right Medical History Medical History Date Comments Allergic rhinitis Hypertension Sinusitis Neoplasm of prostate brachy naz mark Hx of colonic polyps Coronary artery disease GERD (gastroesophageal reflux disease) Sleep apnea CVA (cerebral vascular accident) ([facility]) 04/2021 Vertigo improved since e liquis [...] on file Legal Sex Male 2:26 AM ROUTE INSPECTOR Gender Identity Not on file Sexual Orientation [...] 03/19/2015, 03/04/2011 Medical Devices Implanted Type Area Outside Sales Associate Device Identifier Shelf Expiration Date Model / Serial / Lot [employer] Sr-0940-Cs Enroute Uber Flex 9mm .078in 40mm 57cm Delivery System Angle Tip - [id number] Implanted:Qty: 1 on 07/15/2021 by Sarbjit Robertson MD at [facility] Right: Carotid [employer] [id number] 08/06/2023 SR-0940-C S / / [id number] [employer] 24-023-17 Drill-Free Maxdrive Threadlock Ts 2.3mm 17mm Self Retaining - [id number] Implanted:Qty: 6 on 09/09/2021 by Himanshu Llamas MD at [facility] N/A: Sternum Cristina Michel 24-023-17 -91 / / Cristina Michel 24-025-42 Plate Bone Titanium Football H1.8mm Sternal 6 Hole Lock Level 1 Nonsterile 2.3mm Screw Midline Mini Valve Sternotomy - [id number] Implanted:Qty: 1 on 09/09/2021 by Himanshu Llamas MD at [facility] N/A: Sternum [place] 24-025-42 -09 / / Insurance MEDICARE [place] [address] [employer] MEDICARE [employer] [place] Advance Directives For more information, please contact: [phone] * Full Code (Latest Code Status on File) Date Activated Date Inactivated Comments 09/09/2021 6:06 PM 09/16/2021 6:26 PM * Full Code Date Activated Date Inactivated Comments 07/15/2021 7:40 PM 07/16/2021 9:44 PM Care Teams Tobacco Sample Puller Relationship Specialty Start Date End Date Edith Xie MD [address] [place] [address] PCP - General Internal Medicine 04/27/20 Himanshu Llamas MD [address] [place] [address] Surgeon Cardiothoracic Surgery 08/19/21 Jeffrey Taylor MD [address] [facility] [address], [address] [place] [address] Consulting Physician Cardiology 08/07/23
[2024-11-19 14:19] LABS: Anion Gap 4 mmol/L (4-12); Blood Urea Nitrogen 14 mg/dL (9-20); Calcium 8.5 mg/dL (8.4-10.2); Carbon Dioxide 28 mmol/L (22-30); Chloride 99 mmol/L (98-107); Estimated Glomerular Filt Rate > 60; Glucose 81 mg/dL (65-110); Osmolality Calculated 271 mOsm/kg (285-295); Potassium 4.6 mmol/L (3.4-5.0); Sodium 131 mmol/L (137-145)
== END 2024-11-19 13:42 | disposition home or self-care (01) ==
PROVIDERS: PCP Internal Medicine; Visit Provider Internal Medicine
DX: E87.1 Hypo-osmolality and hyponatremia (principal); N39.0 Urinary tract infection, site not specified
CPT/HCPCS: 36415; 80048

== ENCOUNTER 2024-11-29 00:17 | Day surgery (SDC) | payer MEDICARE, OTHER, SELFPAY ==
[2024-11-21 15:12] VITALS: BMI 28.7
--- NOTE | 2024-11-21 15:28 | PC.NURSE ---
Report to the Outpatient Waiting Room, entrance under the green pavilion located off [facility], at time __0700am on date ___11/29/24____. Planned Procedure Time: __0900am .? Time changes happen often and if your time is changed the preop area will call you the afternoon before. - You and your visitor will be asked to self-screen and do not enter if you have any COVID symptoms. Please call surgeon if you need to reschedule. - A mask is optional within the hospital at this time. Patients may no FOOD OR DRINK after midnight until time of surgery and no smoking, or chewing tobacco (or any form of nicotine). No chewing gum, candy or mints. Take only the following medications with a SIP of water on the morning of surgery: Metoprolol and Tylenol DO NOT STOP ANY OF YOUR OTHER PRESCRIPTION MEDICATIONS PRIOR TO SURGERY EXCEPT THE FOLLOWING Hold all vitamins and supplements for 3 days per anesthesiologist. Date of last dose 11/26/24 Medications to discontinue per physician Aspirin to be instructed by Dr Robles, left message w office to call pt with instructions. Date to take last dose Pending Please no make-up, nail burmese, hairspray, perfume, deodorant, or body powder the day of surgery.? No jewelry (including any body piercings) or valuables the day of surgery, leave them at home.? Please take a shower or bath the night before, or the morning of, surgery with an antibacterial soap. (GOLD DIAL)? Wear comfortable, loose fitting clothing.? - Jewelry must be removed prior to entering the operating room.? Rings and piercings that are not removed may be cut off. - The hospital will not accept responsibility for valuables.? - Please leave all valuables, including medications, at home the day of surgery. If you are going home after surgery, a licensed auto parts delivery driver must drive you home.? - NO public transportation without another adult if you receive anesthesia. - We recommend that an adult stay with you for 24 hours following discharge. - We also recommend that you do not drive, make important decision, drink alcoholic beverages, or take any drugs that were not prescribed by your health care provider for at least 24 hours after your discharge time. Follow any additional instructions given to you from your surgeon. Telephone instructions given to ___Patient and asked if any additional questions and then verbalized understanding. Patient advised to call surgeon office or pre surgery nurse liaison [phone] if any additional questions.
--- OUTSIDE RECORDS SUMMARY | 2024-11-29 00:20 | XMS_ITS | Clinical Summary ---
Author Organization [address] Address [address] [place] [address] Care Team Providers Care Resident Director Name Role Phone Edith Xie MD Primary Care Provider + [phone] Himanshu Llamas MD Unavailable Jeffrey Taylor MD Unavailable [phone] Allergies Active Allergy Reactions Criticality Noted Date [...] 40 mg tabletIndicatio ns:Coronary artery disease involving enterprise coronary artery of enterprise heart without angina pectoris TAKE ONE TABLET [...] 07/16/2021 Assessment & Plan (07/16/2021 4:10 PM AFTER SCHOOL PROGRAM COORDINATOR): Postoperative urinary retention, failed 2 void trials - Martinez catheter replace - FU with his Urologist, Dr. Flavio Stephens on Wednesday 07/19. Coronary artery disease invo lving enterprise coronary artery of enterprise heart without angina pectoris 06/22/2021 Overview (06/22/2021): Added automatically from request for surgery [id number] Assessment & Plan (07/15/2021 4:03 PM AFTER SCHOOL PROGRAM COORDINATOR): During routine cardiac work up found [...] 05/2021 Assessment & Plan (07/15/2021 4:01 PM AFTER SCHOOL PROGRAM COORDINATOR): Patient with episode of right hemispheric [...] apnea CVA (cerebral vascular accident) ([facility]) 04/2021 Vertigo improved since e liquis [...] on file Legal Sex Male 2:26 AM AFTER SCHOOL PROGRAM COORDINATOR Gender Identity Not on file Sexual [...] or Tdap) 12/22/2024 12/22/2014, 02/28/1995 Influenza Vaccine (#1) 2025 , 01/07/2021, 02/15/2019, Additional history exists Pneumococcal vaccine 65+ Completed 019, 03/19/2015, 03/04/2011 Medical Devices Implanted Type Area Cooking Casing And Drying Supervisor Device Identifier Shelf Expiration Date Model / Serial / Lot [employer] Sr-0940-Cs Enroute Uber Flex 9mm .078in 40mm 57cm Delivery System Angle Tip - [id number] Implanted:Qty: 1 on 07/15/2021 by Sarbjit Robertson MD at [facility] Right: Carotid [employer] [id number] 08/06/2023 SR-0940-C S / / [id number] [employer] 24-023-17 Drill-Free Maxdrive Threadlock Ts 2.3mm 17mm Self Retaining - [id number] Implanted:Qty: 6 on 09/09/2021 by Himanshu Llamas MD at [facility] N/A: Sternum Cristina Michel 24-023-17 -91 / / Cristina Michel 24-025-42 Plate Bone Titanium Football H1.8mm Sternal 6 Hole Lock Level 1 Nonsterile 2.3mm Screw Midline Mini Valve Sternotomy - [id number] Implanted:Qty: 1 on 09/09/2021 by Himanshu Llamas MD at [facility] N/A: Sternum [place] 24-025-42 -09 / / Insurance MEDICARE [place] [address] [employer] MEDICARE [employer] [place] Advance Directives For more information, please contact: [phone] * Full Code (Latest Code Status on File) Date Activated Date Inactivated Comments 09/09/2021 6:06 PM 09/16/2021 6:26 PM * Full Code Date Activated Date Inactivated Comments 07/15/2021 7:40 PM 07/16/2021 9:44 PM Care Teams Resident Director Relationship Specialty Start Date End Date Edith Xie MD [address] [place] [address] PCP - General Internal Medicine 04/27/20 Himanshu Llamas MD [address] [place] [address] Surgeon Cardiothoracic Surgery 08/19/21 Jeffrey Taylor MD [address] [facility] [address], [address] [place] [address] Consulting Physician Cardiology 08/07/23
--- OUTSIDE RECORDS SUMMARY | 2024-11-29 00:20 | XMS_ITS | Referral Summary ---
Author Organization [address] Address [address] [place] [address] Care Team Providers Care Batch Mixer Name Role Phone Edith Xie MD Primary Care Provider + [phone] Himanshu Llamas MD Unavailable [phone] Jeffrey Taylor MD Unavailable [phone] Allergies Active Allergy Reactions Criticality Noted Date [...] 40 mg tabletIndicatio ns:Coronary artery disease involving [place] coronary artery of [place] heart without angina pectoris TAKE ONE TABLET [...] 07/16/2021 Assessment & Plan (07/16/2021 4:10 PM NEUROPSYCHIATRIC AIDE): Postoperative urinary retention, failed 2 void trials - Martinez catheter replace - FU with his Urologist, Dr. Flavio Stephens on Wednesday 07/19. Coronary artery disease invo lving [place] coronary artery of [place] heart without angina pectoris 06/22/2021 Overview (06/22/2021): Added automatically from request for surgery [id number] Assessment & Plan (07/15/2021 4:03 PM NEUROPSYCHIATRIC AIDE): During routine cardiac work up found to [...] 05/2021 Assessment & Plan (07/15/2021 4:01 PM NEUROPSYCHIATRIC AIDE): Patient with episode of right hemispheric TIA [...] on file Legal Sex Male 2:26 AM NEUROPSYCHIATRIC AIDE Gender Identity Not on file Sexual Orientation [...] on file Medical Devices Implanted Type Area Deckhand Oyster Dredge Device Identifier Shelf Expiration Date Model / Serial / Lot [facility] Sr-0940-Cs Enroute Uber Flex 9mm .078in 40mm 57cm Delivery System Angle Tip - [id number] Implanted:Qty: 1 on 07/15/2021 by Sarbjit Robertson MD at [facility] Right: Carotid [employer] [id number] 08/06/2023 SR-0940-C S / / [id number] [facility] 24-023-17 Drill-Free Maxdrive Threadlock Ts 2.3mm 17mm Self Retaining - [id number] Implanted:Qty: 6 on 09/09/2021 by Himanshu Llamas MD at [facility] N/A: Sternum [facility] --17 -91 / / [facility] Plate Bone Titanium Football H1.8mm Sternal 6 Hole Lock Level 1 Nonsterile 2.3mm Screw Midline Mini Valve Sternotomy - [id number] Implanted:Qty: 1 on 09/09/2021 by Himanshu Llamas MD at [facility] N/A: Sternum [facility] - / / Insurance MEDICARE [facility] Address: [facility] [address] [place] [address] [facility] MEDICARE [employer] [place] MEDICARE [place] [address] Advance Directives For more information, please contact: [phone] * Full Code (Latest Code Status on File) Date Activated Date Inactivated Comments 09/09/2021 6:06 PM 09/16/2021 6:26 PM * Full Code Date Activated Date Inactivated Comments 07/15/2021 7:40 PM 07/16/2021 9:44 PM Care Teams Batch Mixer Relationship Specialty Start Date End Date Edith Xie MD [address] [place] [address] PCP - General Internal Medicine 04/27/20 Himanshu Llamas MD [address] [place] [address] Surgeon Cardiothoracic Surgery 08/19/21 Jeffrey Taylor MD [address], [address] [place] [address] Consulting Physician Cardiology 08/07/23
--- OUTSIDE RECORDS SUMMARY | 2024-11-29 00:20 | XMS_ITS | Clinical Summary ---
Author Organization [facility] Address [address], [place] [address] Phone Care Team Providers Care Impregnating Helper Name Role Phone Edith Xie MD Primary Care Provider [phone] Allergies No known active allergies Medications losartan [...] [employer] [place] MEDICARE SUPPLEMENT Care Teams Impregnating Helper Relationship Specialty Start Date End Date Edith Xie MD [address] [place] [address] PCP - General Internal Medicine 09/09/20
--- NOTE | 2024-11-29 06:50 | WPDHPUPDATE1 ---
History and Physical Update Update Date/Time: 11/29/24 06:50 Patient seen and examined in pre-operative holding area. No interval change in medical history or symptoms. Patient recalls previous discussion of benefits and alternatives to procedure. Continues to desire to proceed with left endoscopic possible open carpal tunnel release. Reviewed procedure, post-op expectations and risks including but not limited to bleeding, infection, injury to tendon/nerve/vessel, decreased hand function, stiffness, RSD, no change or worsening of symptoms. I discussed the possible use of assistants and their participation in the case. Patient stated understanding and signed the consent form wishing to proceed.
--- NOTE | 2024-11-29 06:51 | P.OP_ITS ---
Procedure Note - Detailed Date of Procedure 11/29/24 Pre-op Diagnosis Lt Carpal Tunnel syndrome Post-op Diagnosis Same Procedure Performed left ectr Surgeon Xiomy Robles MD Dyed Raw Stock Blower Feeder riccardo valladares pa-c Anesthesia MAC Description of Procedure INFORMED CONSENT: The patient was seen and examined and marked in the pre-op area.? The patient signed the consent form. PROCEDURE IN DETAIL:The patient taken back to OR on the stretcher in supine position. Time out performed with anesthesia, surgeon and staff agreeing on patient's name site and surgery to be performed SCDs were placed on the lower extremities and inflated. A tourniquet was placed on left} upper extremity and antibiotics given IV After anesthesia administered sedation I injected {4}cc 1%lido with epi and 0.5% marcaine plain at the operative site The?{left upper extremity}?was prepped and draped in sterile fashion the??{left upper extremity} was? exsanguinated with Esmarch bandage and tourniquet inflated to 250mmHg I made a transverse incision in the {left} volar distal wrist crease through skin and dermis with 15 blade scalpel.? Littler scissors spread down to antebrachial fascia. A small incision was made in antebrachial fascia allowing access to Carpal tunnel. I proceeded with sequential dilation staying in line with the ring finger and hugging the hook of the hamate.? I then used the synovial elevator to free any adhesions from the underside of the transverse carpal ligament. Next I was able to insert the Microaire endoscopic carpal tunnel device with direct visualization of the transverse fibers on the monitor though noting a significant amount of synovitis within the carpal tunnel and I proceeded with complete segmental retrograde release of the ligament in its entirety.? I irrigated with normal saline and closed with 4-0 monocryl for dermis and subcuticular closure. A dressing of Dermabond, 4x4, shawna, and a volar splint was applied for patient safety, security, and comfort and secured with an cal bandage after the tourniquet was let down noting the hand was warm and well perfused. The patient was then awaken from anesthesia and transferred to the recovery room in stable condition.? Complications - none EBL- 0cc Disposition - home in stable condition Riccardo Jaiden PA-C was essential for positioning, retraction, closure and dressing placement [facility] Billing Surgery - Charge Forward: Surgery Billing ([id number] for riccardo)
[2024-11-29 07:40] VITALS: BP 156/86; PULSE 67; RESP 20; TEMP 36.6; O2SAT 100
[2024-11-29] MEDS: ACETAMINOPHEN 500 MG TABLET 1000 MG PO (08:07)
[2024-11-29 08:09] LABS: Sodium 131 mmol/L (137-145)
--- NOTE | 2024-11-29 08:58 | P.PNAN_ITS ---
Anes - Initial Pre Proc Eval Procedure: Operation Date: 11/29/24 09:00 Proposed Procedures p Left Endoscopic Carpal Tunnel Release Possible Open - Xiomy Robles MD Date/Time: 11/29/24 08:58 Surgeon: Xiomy Robles MD Pre Op Diagnosis: Lt Carpal Tunnel Patient Data Age: 89 Gender: M Height: 1.83 m Weight: 97.8 kg Last Vital Signs Temp 36.6 C 11/29/24 07:40 Pulse 67 11/29/24 07:40 Resp 20 11/29/24 07:40 BP 156/86 H 11/29/24 07:40 Pulse Ox 100 11/29/24 07:40 O2 Del Method Room Air 11/29/24 07:40 Allergies Allergy/AdvReac Type Severity Reaction Status Date / Time adhesive Allergy Unknown Rash Verified 11/29/24 07:49 bee venom protein (honey bee) Allergy Unknown swelling, Verified 11/29/24 07:49 SOB oxycodone AdvReac Nausea Verified 11/29/24 07:49 Home Medications ?Medication ?Instructions ?Recorded ?Confirmed ?Type tamsulosin 0.4 mg capsule (Flomax) 0.4 mg PO DAILY 07/24/21 11/29/24 History sodium chloride 1 gram tablet 1,000 mg PO BIDWMEAL #0 tabs 07/25/21 11/29/24 Rx aspirin 81 mg chewable tablet 81 mg PO DAILY@0800 #0 tabs 09/27/21 11/29/24 Rx (Children's Aspirin) acetaminophen 500 mg tablet 500 mg PO Q6H PRN pain 03/10/22 11/21/24 History (Tylenol Extra Strength) multivitamin (Daily Multi-Vitamin 1 tablet PO DAILY 03/10/22 11/29/24 History tablet) Bifidobacterium infantis 4 mg 4 mg PO DAILY 08/16/23 11/29/24 History capsule atorvastatin 40 mg tablet 40 mg PO DAILY 08/16/23 11/29/24 History cetirizine 10 mg capsule (Zyrtec) 10 mg PO DAILY PRN allergy symptoms 08/16/23 11/29/24 History metoprolol tartrate 25 mg tablet 12.5 mg PO BID 08/16/23 11/29/24 History tramadol 50 mg tablet 50 mg PO Q6H PRN pain #12 tabs 11/29/24 Rx Laboratory Tests 11/29/24 07:41 Sodium 131 L mmol/L (137-145) Patient hx anesthesia problems: none Family hx anesthesia problems: none Results Review: All pre-operative results and documents have been reviewed as part of the pre- operative evaluation. [facility] Past Medical History Medical History UTI (urinary tract infection) Carotid artery disease S/p transcarotid artery revascularization 07/15/2021 History of brachytherapy 2009 Prostate cancer Coronary artery disease Urinary retention Aortic stenosis 04/2021 echo: EF 77%, moderate , SRINIVASAN 1.5 cm2, mean grad 17 mmHg History of stroke 04/16/2021 right frontal stroke, full recovery. Hypertension GERD (gastroesophageal reflux disease) Sessile colonic polyp Surgical History Surgical History History of hip surgery in early s, due to ligament injury History of heart surgery September 2021 Previous back surgery Times 2 History of knee replacement left Family History Family History Mother Heart disease age 86 Cerebrovascular accident Father Malignant neoplasm of prostate Sibling Aortic valve replaced Malignant neoplasm of prostate Social History Social History Social History: Mr. Polanco lives at home with his . He is independent in all his daily activities. He has been retired for 23 years from [employer]. He states he has been in good health all his life. He designates his as his surrogate decision maker and would like to be a full code. Smoking status: Former smoker Tobacco type: pipe Second hand tobacco smoke exposure: No Smoking end date: 05/08/86 Additional smoking assessment comments: quit pipes then Alcohol intake: former Alcohol use details: NONE IN 10 YRS Substance use: never Substance use type: does not use Do You Feel Safe in your Home?: Yes Lack of Transportation: No Lack of Food: Never True Current Housing: I Have Housing Concerned About Future Housing: No Difficulty Paying Gas/Electric Bills: No Difficulty Paying for Meds: No Currently Unemployed: No Education: High School Diploma/GED Difficulty w/ Childcare or Family Care: No Living arrangements: alone Additional living arrangements comments: Occupation/Education: retired Spiritual care concerns: No Anes - Eval Final PreProcedure Day of Procedure 11/29/24 08:58 Patient weight: overweight Heart: regular rate and rhythm Lungs: decreased breath sounds Airway: Mallampati scale class II Neurological: alert and oriented Last oral intake: >/= 8 hours ASA classification: III Emergent: no Anesthetic plan: proceed Anesthesia type and monitoring: general GIVS and standard monitoring Results Review: All pre-operative results and documents have been reviewed as part of the pre- operative evaluation. Informed Consent: The patient's anesthetic plan and its attendant risks and benefits were discussed with the patient/family/POA. Questions were solicited and answers provided to the satisfaction of the patient/family/POA.
[2024-11-29] MEDS: ceFAZolin 2 GM in SODIUM CHLORIDE 0.9% IV 50 ML 100 ML IVPB (09:01)
[2024-11-29] MEDS: LIDO 1%/EPINEPHRINE 1:100,000 20 ML VIAL 10 ML INFILTRATE (09:13)
[2024-11-29] MEDS: BUPivacaine HCL 0.5% 10 ML AMP INFILTRATE (09:13)
[2024-11-29 09:30] VITALS: BP 116/56; PULSE 66; RESP 14; O2SAT 100
[2024-11-29] MEDS: LACTATED RINGERS 1,000 ML 30 ML IV CONT (09:30)
[2024-11-29 10:00] VITALS: BP 125/69; PULSE 61; RESP 14; O2SAT 98
[2024-11-29 10:30] VITALS: BP 148/67; PULSE 57; RESP 14
== END 2024-11-29 10:45 | disposition home or self-care (01) ==
PROVIDERS: Anesthesiology; PCP Internal Medicine; Visit Provider Plastic Surgery
PROC: 01N54ZZ Release Median Nerve, Percutaneous Endoscopic Approach (ICD-10-PCS; CPT 29848; principal; 2024-11-29 09:00)
DX: G56.02 Carpal tunnel syndrome, left upper limb (principal)
CPT/HCPCS: 29848; 36415; 84295; J0690; A9270; J2003; J2004; J2590; J2704; J3010; J7120

== ENCOUNTER 2025-02-05 14:00 | Outpatient (RCR) | payer MEDICARE, OTHER, SELFPAY ==
--- NOTE | 2025-01-27 15:36 | OPREHPOC ---
Outpatient Therapy Plan of Care This is a Multidisciplinary Plan of Care that may contain components documented by all disciplines (PT, OT, and ST.) PT Problem 1 PT Problem #1 Knowledge Deficit PT Goal 1 Goal / Goal Update Independent and compliant with HEP. Target Visit 2 PT Problem 2 PT Problem #2 Impaired Strength PT Goal 1 Goal / Goal Update Pt to improve gross L wrist strength to 5/5. Pt to improve L pit furnace melter strength to 50#. Target Visit 12 PT Problem 3 PT Problem #3 Impaired Functional Mobility PT Goal 1 Goal / Goal Update Pt to report 20% reduction in perceived disability on Quick DASH. Pt to report improved ability to hold coffee mugs and pickler helper small objects. Target Visit 12 PT Problem 4 PT Problem #4 Pain PT Goal 1 Goal / Goal Update Pt to report no worse than 1/10 pain in the L wrist. Target Visit 12
--- NOTE | 2025-01-27 15:36 | PTOPEVAL1 ---
Assessment and note entered by Genet Salmeron, PT Evaluation Information Assessment Status Evaluation Other ICD-10 Condition Codes ( R29.898 left hand weakness, G56.02 PT) Onset 11/29/2024 Subjective Information Pt had a left carpal tunnel release on 11/29/2024. He reports feeling like his pain actually got worse after his surgery but he feels like he's been getting a lot better. He states that when his pain was very bad, he struggled to use utensils to eat as well as to hold a pen when writing. He feels like his pointer and middle fingers are numb and they want to stay bent all the time. Reported Pain Level Pain Score 2: Self Report Assessment PT Clinical Summary Mr. Polanco is an 89 yo male presenting to skilled PT evaluation with L wrist/hand pain and weakness following L carpal tunnel release on 11/29/2024. His symptoms have been improving over time since the procedure but he continues to demonstrate numbness of the thumb, pointer and middle fingers and demonstrates moderate deficits in L wrist strength and over 50% loss of business information manager strength. His deficits prevent him from using his L hand fully, which is his dominant hand and is essential in perform tasks like carrying mugs, lifting objects, using eating utensils, and opening containers. He will benefit from skilled PT intervention to improve on these deficits to increase the functional use of his L wrist and hand for functional tasks. Plan of Care Interventions Gait Training,Hot Pack/Cold Pack,Manual Therapy, Neuro Re-education,Patient/Caregiver Education, Therapeutic Activities,Therapeutic Exercise,Self- Care/Home Management PT Services Indicated Yes Treatment Frequency and 3x/week for 12 visits Duration These treatments will address the objective and functional deficits as defined above. The patient will be advanced safely and appropriately in order for the patient to progress towards his/her prior level of function. Additional exercises will be introduced and as well as a comprehensive home exercise program upon discharge, if needed, ?to ensure carryover of functional gains achieved in the clinic. This treatment plan has been reviewed and agreement upon by the patient.
--- NOTE | 2025-02-21 16:20 | OPREHPOC ---
Outpatient Therapy Plan of Care This is a Multidisciplinary Plan of Care that may contain components documented by all disciplines (PT, OT, and ST.) PT Problem 1 PT Problem #1 Knowledge Deficit PT Goal 1 Goal / Goal Update Independent and compliant with HEP. Target Visit 2 Progress Met PT Problem 2 PT Problem #2 Impaired Strength PT Goal 1 Goal / Goal Update Pt to improve gross L wrist strength to 5/5. -met Pt to improve L sex therapist strength to 50#. -not met Target Visit 12 Progress Partially Met PT Problem 3 PT Problem #3 Impaired Functional Mobility PT Goal 1 Goal / Goal Update Pt to report 20% reduction in perceived disability on Quick DASH. -not met Pt to report improved ability to hold coffee mugs and fiber picker small objects. -not met Target Visit 12 Progress Not Met PT Problem 4 PT Problem #4 Pain PT Goal 1 Goal / Goal Update Pt to report no worse than 1/10 pain in the L wrist. Target Visit 12 Progress Not Met
--- NOTE | 2025-02-21 16:20 | PTOPPROG ---
Assessment and note entered by Genet Salmeron, PT Evaluation Information Assessment Status Progress Other ICD-10 Condition Codes ( R29.898 left hand weakness, G56.02 PT) Onset 11/29/2024 Subjective Information Ed reports his pain is slightly higher today compared to his last visit. He reports he was pretty sore after his last session and that it is feeling slightly better. He reports that he has good days and bad days regarding his ability to use his L hand. He continues to have difficulty opening jars, holding a coffee cup and using utensils, and he also still has tingling into the hand and fingers when his pain is more severe. He feels like he has made some progress but isn't where he needs to be. He has also been using a built up chemical plant operator supervisor on his utensils. Assessment PT Clinical Summary Mr. Polanco has attended 10 skilled PT visits addressing L wrist pain following carpal tunnel release. He demonstrates improvement in his L wrist/forearm strength and a reduction in perceived disability on Quick DASH, but he continues to demonstrate impaired chemical plant operator supervisor strength and inability to open jars, hold a coffee cup and use utensils with the L hand. Continued skilled PT intervention is indicated to make further progress toward goals and promote functional use of the L hand. Plan of Care Interventions Gait Training,Hot Pack/Cold Pack,Manual Therapy, Neuro Re-education,Patient/Caregiver Education, Therapeutic Activities,Therapeutic Exercise,Self- Care/Home Management PT Services Indicated Yes Treatment Frequency and Continue per POC Duration These treatments will address the objective and functional deficits as defined above. The patient will be advanced safely and appropriately in order for the patient to progress towards his/her prior level of function. Additional exercises will be introduced and as well as a comprehensive home exercise program upon discharge, if needed, ?to ensure carryover of functional gains achieved in the clinic. This treatment plan has been reviewed and agreement upon by the patient.
--- NOTE | 2025-02-28 14:30 | OPREHPOC ---
Outpatient Therapy Plan of Care This is a Multidisciplinary Plan of Care that may contain components documented by all disciplines (PT, OT, and ST.) PT Problem 1 PT Problem #1 Knowledge Deficit PT Goal 1 Goal / Goal Update Independent and compliant with HEP. Target Visit 2 Progress Met PT Problem 2 PT Problem #2 Impaired Strength PT Goal 1 Goal / Goal Update Pt to improve gross L wrist strength to 5/5. -met Pt to improve L dispenser operator strength to 50#. -met Target Visit 12 Progress Met PT Problem 3 PT Problem #3 Impaired Functional Mobility PT Goal 1 Goal / Goal Update Pt to report 20% reduction in perceived disability on Quick DASH. -met Pt to report improved ability to hold coffee mugs and greens picker small objects. -met Target Visit 12 Progress Met PT Problem 4 PT Problem #4 Pain PT Goal 1 Goal / Goal Update Pt to report no worse than 1/10 pain in the L wrist. Target Visit 12 Progress Not Met
--- NOTE | 2025-02-28 14:30 | PTOPDC ---
Assessment and note entered by Genet Salmeron, PT Evaluation Information Assessment Status Discharge Other ICD-10 Condition Codes ( R29.898 left hand weakness, G56.02 PT) Onset 11/29/2024 Subjective Information Ed reports his hand is feeling good today and he does not have pain currently. He reports occasionally he will get a severe pain in the hand even when he's not doing anything but it doesn't last long, and overall he normally just feels stiff. He was able to eat his cereal this morning with a regular spoon vs an adaptive handled spoon. He reports he's continued to work on his strength and flexibility and that it's been helping. He has still been trying to use his L hand as much as possible but that things tend to be easier when using his R hand, even though he's L hand dominant . He feels like he's made a lot more progress in the last week and he feels well enough today to finish therapy and continue his HEP on his own. Reported Pain Level Pain Score 0: Self Report Assessment PT Clinical Summary Mr. Polanco presents for his 12 skilled PT visit this date follow carpal tunnel release. While he continues to demonstrate median claw hand positioning at rest, he responds well to passive stretching and has made improvements in his wrist mm strength, crane engineer strength, and ability to carry coffee cups and complete fine motor tasks. He has met his goals addressing these deficits and will discharge from skilled PT this date with education to continue HEP independently at home. Plan of Care PT Services Indicated No
== END 2025-02-28 16:56 | disposition home or self-care (01) ==
LOC: CHSPT 14:00
PROVIDERS: PCP Nurse Practitioner Family; Visit Provider Nurse Practitioner Family
DX: G56.02 Carpal tunnel syndrome, left upper limb (principal); R29.898 Other symptoms and signs involving the musculoskeletal system
CPT/HCPCS: 97110; 97112; 97150; 97161; 97530

== ENCOUNTER 2025-02-20 08:49 | Outpatient (CLI) | payer MEDICARE, OTHER, SELFPAY ==
--- OUTSIDE RECORDS SUMMARY | 2025-02-20 09:20 | XMS_ITS | Clinical Summary ---
Author Organization [facility] Address [address] [place] [id number] Phone Care Team Providers Care Merchandise Processor Name Role Phone Edith Xie MD Primary Care Provider [phone] Allergies No known active allergies Medications losartan [...] [employer] SUPPLEMENT Care Teams Merchandise Processor Relationship Specialty Start Date End Date Edith Xie MD [address] [place] [address] PCP - General Internal Medicine 09/09/20
--- OUTSIDE RECORDS SUMMARY | 2025-02-20 09:20 | XMS_ITS | Clinical Summary ---
Author Organization [address] Address [address] [place] [address] Care Team Providers Care Shaft Sinker Name Role Phone Edith Xie MD Primary Care Provider [phone] Himanshu Llamas MD Unavailable Jeffrey Taylor MD Unavailable [phone] Allergies Active Allergy Reactions Criticality Noted Date [...] 40 mg tabletIndicatio ns:Coronary artery disease involving ute mountain coronary artery of ute mountain heart without angina pectoris TAKE ONE TABLET [...] 07/16/2021 Assessment & Plan (07/16/2021 4:10 PM UNIX CONSULTANT): Postoperative urinary retention, failed 2 void trials - Martinez catheter replace - FU with his Urologist, Dr. Flavio Stephens on Wednesday 07/19. Coronary artery disease invo lving ute mountain coronary artery of ute mountain heart without angina pectoris 06/22/2021 Overview (06/22/2021): Added automatically from request for surgery [id number] Assessment & Plan (07/15/2021 4:03 PM UNIX CONSULTANT): During routine cardiac work up found to [...] 05/2021 Assessment & Plan (07/15/2021 4:01 PM UNIX CONSULTANT): Patient with episode of right hemispheric TIA [...] disease) Sleep apnea CVA (cerebral vascular accident) ([facility]) 04/2021 Vertigo improved since e liquis [...] on file Legal Sex Male 2:26 AM UNIX CONSULTANT Gender Identity Not on file Sexual Orientation [...] 65+ 2002 Fall Risk Assessment 09/16/2022 09/16/2021 DTaP/Tdap/Td Vaccine (2 - Td or Tdap) 12/22/2024 12/22/2014, 02/28/1995 Covid-19 Vaccine (4 - 2024-06 6 season) 2025 04/08/2021, 07/01/2020, 06/10/2020 Influenza Vaccine (#1) 2025 , 01/07/2021, 02/15/2019, Additional history exists Pneumococcal vaccine 65+ Completed 019, 03/19/2015, 03/04/2011 Medical Devices Implanted Type Area Directory Clerk Device Identifier Shelf Expiration Date Model / Serial / Lot [employer] Sr-0940-Cs Enroute Uber Flex 9mm .078in 40mm 57cm Delivery System Angle Tip - [id number] Implanted:Qty: 1 on 07/15/2021 by Sarbjit Robertson MD at [facility] Right: Carotid [employer] [id number] 08/06/2023 SR-0940-C S / / [id number] [employer] 24-023-17 Drill-Free Maxdrive Threadlock Ts 2.3mm 17mm Self Retaining - [id number] Implanted:Qty: 6 on 09/09/2021 by Himanshu Llamas MD at [facility] N/A: Sternum Cristina Michel 24-023-17 -91 / / Cristina Michel 24-025-42 Plate Bone Titanium Football H1.8mm Sternal 6 Hole Lock Level 1 Nonsterile 2.3mm Screw Midline Mini Valve Sternotomy - [id number] Implanted:Qty: 1 on 09/09/2021 by Himanshu Llamas MD at [facility] N/A: Sternum Cristina 24-025-42 -09 / / Insurance MEDICARE [facility] [place] [id number] [employer] MEDICARE [employer] [place] Advance Directives For more information, please contact: [phone] * Full Code (Latest Code Status on File) Date Activated Date Inactivated Comments 09/09/2021 6:06 PM 09/16/2021 6:26 PM * Full Code Date Activated Date Inactivated Comments 07/15/2021 7:40 PM 07/16/2021 9:44 PM Care Teams Shaft Sinker Relationship Specialty Start Date End Date Edith Xie MD [address] [place] [address] PCP - General Internal Medicine 04/27/20 Himanshu Llamas MD [address] [place] [address] Surgeon Cardiothoracic Surgery 08/19/21 Jeffrey Taylor MD [address] [facility] [address] [place] [address] Consulting Physician Cardiology 08/07/23
[2025-02-20 09:42] LABS: Anion Gap 7 mmol/L (4-12); Blood Urea Nitrogen 12 mg/dL (9-20); Calcium 9.4 mg/dL (8.4-10.2); Carbon Dioxide 28 mmol/L (22-30); Chloride 99 mmol/L (98-107); Estimated Glomerular Filt Rate > 60; Glucose 109 mg/dL (65-110); Osmolality Calculated 278 mOsm/kg (285-295); Potassium 4.3 mmol/L (3.4-5.0); Sodium 134 mmol/L (137-145)
== END 2025-02-20 08:50 | disposition home or self-care (01) ==
LOC: CHSLAB 08:51
PROVIDERS: PCP Internal Medicine; Visit Provider Internal Medicine
DX: E87.1 Hypo-osmolality and hyponatremia (principal)
CPT/HCPCS: 36415; 80048

== ENCOUNTER 2025-03-24 07:03 | Outpatient (CLI) | payer MEDICARE, OTHER, SELFPAY ==
[2025-03-24 07:16] LABS: Hematocrit 40.2 % (37.0-46.0); Hemoglobin 13.8 g/dL (12.4-15.3); Mean Corpuscular HGB Conc 34.3 g/dL (32-36); Mean Corpuscular Hemoglobin 33.3 pg (27.0-31.0); Mean Corpuscular Volume 96.9 fL (78.0-102.0); Platelet Count Result 144 K/mm3 (150-420); Red Blood Count 4.15 M/mm3 (4.70-6.10); White Blood Count 6.6 K/mm3 (4.8-10.8)
[2025-03-24 07:17] LABS: Add Urine Microscopic? YES; Appearance Urine Clear (Clear); Glucose Urine UA Negative (Negative); Leukocyte Esterase Ur 2+ LEU/UL (Negative); Nitrate Urine Negative (Negative); Specific Grav Ur 1.010 (1.010-1.020)
[2025-03-24 07:39] LABS: Alanine Aminotransferase 15 U/L (6-50); Albumin Level 4.1 g/dL (3.5-5.1); Alkaline Phosphatase 99 U/L (38-126); Anion Gap 8 mmol/L (4-12); Aspartate Amino Transferase 26 U/L (17-59); Blood Urea Nitrogen 17 mg/dL (9-20); Calcium 9.1 mg/dL (8.4-10.2); Carbon Dioxide 28 mmol/L (22-30); Chloride 98 mmol/L (98-107); Cholesterol 125 mg/dL (0-200); Creatine Kinase 42 U/L (55-170); Estimated Glomerular Filt Rate > 60; Glucose 100 mg/dL (65-110); HDL Direct 66 mg/dL; Iron 92 ug/dL (49-181); Osmolality Calculated 279 mOsm/kg (285-295); Potassium 4.4 mmol/L (3.4-5.0); Sodium 134 mmol/L (137-145); Total Protein 6.5 g/dL (6.3-8.2); Triglycerides 42 mg/dL (<150)
[2025-03-24 07:46] LABS: Hemoglobin A1C 5.4 % (<5.7)
[2025-03-24 08:14] LABS: Ferritin 67.10 ng/mL (11.1-264)
[2025-03-24 17:28] LABS: Bilirubin,Total 0.4 mg/dL (0.2-1.3)
== END 2025-03-24 07:04 | disposition home or self-care (01) ==
PROVIDERS: PCP Internal Medicine; Visit Provider Internal Medicine
DX: D50.9 Iron deficiency anemia, unspecified (principal); E78.2 Mixed hyperlipidemia; R73.01 Impaired fasting glucose; N39.0 Urinary tract infection, site not specified
CPT/HCPCS: 36415; 80053; 80061; 81001; 82550; 82728; 83036; 83540; 85027; 87086; 87186